=== PATIENT | male | born 1945 | race Caucasian/White ===

== ENCOUNTER 2021-05-07 11:01 | Inpatient (IN) ==
[2021-05-07] MEDS ORDERED: ALBUT/IPRATROP 3MG/0.5MG NEB 3 ML VIAL NEB ONE (12:45)
[2021-05-07] MEDS ORDERED: MAGNESIUM SULFATE / D5W 1 GM/100 ML BAG IV STA ×2 (12:45→14:11)
[2021-05-07 13:14] LABS: Basophils # (auto) 0.01 K/uL (0-0.2); Basophils % (auto) 0.1 %; Eosinophils # (auto) 0.03 K/uL (0-0.5); Eosinophils % (auto) 0.3 %; Hematocrit (blood only) 43.4 % (42-52); Hemoglobin 14.3 g/dL (14.0-18.0); Immature Granulocytes # (auto) 0.01 K/uL (0.00-0.02); Immature Granulocytes % (auto) 0.1 %; Lymphocytes # (auto) 1.13 K/uL (1.2-3.4); Lymphocytes % (auto) 11.8 %; Mean Corpuscular Hemoglobin 30.6 pg (25-34); Mean Corpuscular Hgb Conc 32.9 g/dL (32-36); Mean Corpuscular Volume 92.7 fL (80-100); Mean Platelet Volume 11.3 fL (7.4-10.4); Monocytes % (auto) 7.3 %; Neutrophils # (auto) 7.69 K/uL (1.4-6.5); Neutrophils % (auto) 80.4 %; Platelet Count 248 K/uL (130-400); RDW Coefficient of Variation 13.7 % (11.5-14.5); RDW Standard Deviation 46.4 fL (36.4-46.3); Red Blood Count 4.68 M/uL (4.7-6.1); White Blood Count 9.57 K/uL (4.8-10.8)
--- NOTE | 2021-05-07 13:25 | Communication Note ---
Date of Service: May 07, 2021 This patient was seen in concert with Dr. Coffman and we discussed and agreed upon the history, physical, assessment, and plan. See attending's note for details. Resident Activity Tracking Resident Involvement: Resident Care Provided Care Provided: Adult ED
[2021-05-07 13:28] LABS: INR 1.1 (0.9-1.1); Partial Thromboplastin Ratio 1.7; Partial Thromboplastin Time 43.6 Seconds (21.0-31.0)
[2021-05-07] MEDS ORDERED: methylPREDNISolone 125 MG/2 ML VIAL IV STA (13:38)
[2021-05-07 13:45] LABS: Albumin Globulin Ratio 0.6 (0.9-2); BUN Creatinine Ratio 17.3 (10-20); Bilirubin,Total 0.4 mg/dl (0.2-1); Calcium 8.2 mg/dl (8.5-10.1); Creatine Kinase MB 5.2 ng/ml (0.5-3.6); Creatinine Clr Calc Pharmacy 60.8 ml/min; Est GFR (Non-African American) 60.4 ml/min; Globulin 3.5 gm/dl (2.5-4.0); Total Protein 5.5 gm/dl (6.4-8.2)
[2021-05-07] MEDS ORDERED: INSULIN ASPART PER UNIT SC STA (13:56)
[2021-05-07 13:58] LABS: Troponin I 0.119 ng/ml (0-0.045)
[2021-05-07 14:03] LABS: Magnesium 1.7 mg/dl (1.8-2.4); Potassium 4.4 mmol/L (3.5-5.1)
--- NOTE | 2021-05-07 14:04 | XRay Report ---
SINGLE VIEW CHEST CLINICAL HISTORY: Sepsis. FINDINGS: 2 AP, portable, upright chest radiographs are obtained. No prior studies are available for comparison at the time of dictation. The examination is degraded by portable technique and patient ro tation. A right subclavian central venous infusion port is in place. The tip of the catheter projects over the right atrium. The heart is enlarged noting atherosclerotic calcification of the thoracic ao rta. There is mild pulmonary vascular congestion. Volume loss is noted in the right lung and may be o n a postoperative basis. There are bilateral pleural effusions, right larger than left with consolida tion throughout the lower lungs. No pneumothorax is seen. The skeletal structures are osteopenic. The re are healed right-sided rib fractures. IMPRESSION: 1. Cardiomegaly with mild pulmonary vascular congestion. 2. Right larger than left pleural effusions with bibasilar consolidation. ACT 112: Negative or not required by law. Electronically signed by: Carlos Nuñez M.D. 05/07/2021 2:03 PM
[2021-05-07] MEDS ORDERED: OPTIRAY 320 125ml IV ONE (14:07)
[2021-05-07 14:08] LABS: Base Excess VBG 1.2 mEq/L; HCO3 VBG 30 mmol/L; PCO2 VBG 65 mmHg (38-50); PO2 VBG 31 mmHg; pH VBG 7.28 (7.36-7.41)
[2021-05-07] MEDS ORDERED: FUROSEMIDE 40 MG/4 ML VIAL IV STA (14:08)
[2021-05-07 14:11] LABS: Oxygen Saturation VBG < 60.0 %
[2021-05-07 14:14] LABS: Beta-Hydroxybutyrate 2.56 mg/dl (0.2-2.81)
[2021-05-07 14:26] LABS: C Reactive Protein 1.05 mg/dl (0-0.29)
--- NOTE | 2021-05-07 14:53 | CT Scan Report ---
CT ANGIOGRAM OF THE CHEST CLINICAL HISTORY: Dyspnea. COMPARISON STUDY: Chest x-ray dated 05/07/2021. TECHNIQUE: Following the IV administration of 120 cc of Optiray 320, CT angiogram of the chest was pe rformed from the upper abdomen to the thoracic inlet utilizing the pulmonary embolus protocol. Images are reviewed in the axial, sagittal, and coronal planes. 3-D MIPS images are created and assessed. I V contrast was administered without complication. A dose lowering technique was utilized adhering to the principles of ALARA. The examination is compromised by motion artifact. CT DOSE: 534.92 mGy.cm FINDINGS: Thyroid: Normal in size and heterogeneous in attenuation. Thoracic aorta: There is advanced atherosclerotic calcification of the thoracic aorta, which is dawson l in caliber and demonstrates standard 3-vessel arch anatomy. No evidence of dissection is seen. Pulmonary vasculature: The pulmonary arteries appear dilated suggesting pulmonary artery hypertension . There is thrombus within the right lower lobe pulmonary artery which extends into segmental and sub segmental branches. The remaining pulmonary vessels are clear as imaged. Heart: A right internal jugular central venous infusion port is in place. The heart is markedly enlar ged and without pericardial effusion. The coronary arteries and mitral annulus are densely calcified. Reflux of contrast into the IVC and hepatic veins suggests cardiac dysfunction. Lungs and pleural spaces: Evaluation of the lung parenchyma is compromised by motion artifact. Emphys ematous change is noted. Volume loss in the right lung may be on a postoperative basis. There are sma ll pleural effusions with bibasilar consolidation. Pleural fluid along the right lateral chest wall i s at least partially loculated. A large focus of round atelectasis is suggested at the right lung bas e. Patchy airspace consolidation is seen throughout the left lung with associated intralobular septal thickening. A 6 mm left upper lobe nodule is seen on image #156. A 12 mm irregular left upper lobe o pacity seen anteriorly on image #177. Layering debris is noted in the trachea. Mediastinum: Mildly enlarged mediastinal nodes measure up to 12 mm in short axis. Kathie: Enlarged bilateral hilar nodes measure up to 15 mm in short axis. Axillae: There are shotty axillary nodes. Upper abdomen: Partially visualized upper abdominal viscera is within normal limits. Skeletal structures: The skeletal structures are heterogeneously osteopenic. Degenerative change and hyperkyphosis is seen throughout the thoracic spine. 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 A lytic lesion is seen in the posterior aspect of the T10 vertebral body on image #95. A lesion within the inferior right scapula is seen on image #142. A large expansile lesion within th e left anterior 4th rib is seen on image #191. There are numerous healed bilateral rib fractures. Add itional smaller lesions are noted. IMPRESSION: 1. Right lower lobe pulmonary embolus as above. 2. Cardiomegaly and emphysema with volume loss in the right lung. Intralobular septal thickening may represent a component of congestive failure and clinical correlation will be required. 3. 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 Correlate with the patient's oncolo gical history. 4. There are small pleural effusions. The right pleural effusion is partially loculated. 5. There is dense consolidation at both lung bases, left greater than right. Correlate clinically for evidence of pneumonia/aspiration pneumonitis. 6. Mild patchy opacities are seen throughout the left upper lung. This could represent an infectious/ inflammatory pneumonitis and/or mild pulmonary edema. 7. There are 2 additional nodular densities in the left lung as above which measure up to 12 mm. Thes e are pathologically indeterminant. Correlate with any prior outside imaging studies. 8. There are mildly enlarged mediastinal and hilar lymph nodes. 9. Additional findings as above. ACT 112: Negative or not required by law. Electronically signed by: Carlos Nuñez M.D. 05/07/2021 2:52 PM
[2021-05-07] MEDS ORDERED: Heparin IV Adult Wt-Based Standard *NO* Bolus Protocol ONE (15:01)
[2021-05-07] MEDS ORDERED: PIPERACILLIN/TAZOBACTAM 4.5 GM/120 ML BAG IV ONE (15:09)
[2021-05-07] MEDS ORDERED: PIPERACILL/TAZOBAC CONSULT ACTIVE PRN (15:09)
--- NOTE | 2021-05-07 15:19 | History & Physical Report ---
Date of Service May 07, 2021 Assessment & Plan (1) Acute respiratory failure with hypoxia and hypercapnia: Plan: This is a 76yo M with a PMH of HTN, DM II, COPD, PAD, ongoing tobacco use x 60 years, peripheral neuropathy, Multiple Myeloma on immunotherapy, medication non- compliance who presents with progressive SOB over the past few months. Hypoxic at 86% on room air, improved to 93% with bipap trial, now 92% on 6L oxymask VBG pH 7.28, pCo2 65 Admission ABG pending, plan to repeat VBG in AM per pulm Underlying COPD - should be on BiPAP nightly Possible underlying pneumonia vs pneumonitis - afebrile, normal wbc and procal but aspiration risk - placed on Unasyn Appreciate pulm recs (2) Pulmonary embolism: Plan: Right lower lobe PE on Chest CTA Started on IV heparin Long-term anticoagulation to be determined by patient's data typist Troponin slightly elevated at 0.119, TTE to evaluate for R heart strain (3) Volume overload: Plan: No formal CHF diagnosis in [facility], [facility] records requested but clinically appears to have decompensated CHF Prescribed 80mg PO Lasix daily for BLE swelling, per [facility] records TTE performed while patient in ED Pro-BNP 24,198, edema noted in BLE extremities up to groin, upper extremity as well Given 40mg IV Lasix in ED. Plan to continue 40mg IV BID, garrison placement for accurate I&Os, daily weights Routine cardiology consult (4) Multiple myeloma: Plan: Receives cancer care at [facility] in [place] for IgG kappa multiple myeloma. Regimen includes monthly daratumumab (5) PAD (peripheral artery disease): Plan: Supposed to be on aspirin and plavix Will continue aspirin Awaiting OP records to see if plavix still indicated (6) HTN (hypertension): Plan: Resume amlodipine, losartan which patient is prescribed but does not currently take (7) DM type 2, uncontrolled, with neuropathy: Plan: A1c pending Not compliant with home meds SSI while in-patient Glycemic consult placed, diabetic education as well BSG AC HS DVT Ppx: IV heparin Code status: FULL PCP: [facility] Dispo: Admitted to PCU. Discharge planning ordered Please review med rec [facility] - based on [facility] list from hematology visits Patient seen in collaboration with Dr. Trimble. Please see addendum. History of Present Illness Chief Complaint: SOB Primary Care Provider: NO PCP This is a 76yo M with a PMH of HTN, DM II, COPD, PAD, ongoing tobacco use x 60 years, peripheral neuropathy, Multiple Myeloma on immunotherapy who presents with progressive SOB over the past few months. [facility] today and was noted to have SOB and lower extremity swelling and was sent to ED for further evaluation. Unable to obtain [facility] records today but requested them. Endorses productive yellow sputum, chills, swelling in arms, legs and scrotum. Sleeps lying flat at night but is short of breath, waking up frequently. No fevers, headache, nausea, vomiting, abdominal pain, dysuria, constipation. Endorses urinary hesitancy, incomplete voiding and retention. Stool is watery and loose chronically. Receives cancer care at [facility] in [place] for IgG kappa multiple myeloma. Regimen includes monthly daratumumab. Is non-compliant with home medications, including antihypertensives, lasix, diabetes medications, aspirin and plavix. Uses albuterol inhaler occasionally. [facility] med [facility] Allergies Allergy/AdvReac Type Severity Reaction Status Date / Time gabapentin Allergy Rash Unverified 05/07/21 11:50 metformin Allergy Diarrhea Unverified 05/07/21 11:50 Home Medications Medication Instructions Recorded Confirmed Type albuterol sulfate 90 mcg/actuation 2 inh INHALATION QID PRN 05/07/21 05/07/21 History aerosol inhaler amlodipine 10 mg tablet 10 mg PO DAILY 05/07/21 05/07/21 History aspirin 81 mg capsule 81 mg PO DAILY 05/07/21 05/07/21 History atorvastatin 80 mg tablet 80 mg PO DAILY 05/07/21 05/07/21 History capsaicin 0.075 % topical cream 1 applic TOPICAL TID PRN 05/07/21 05/07/21 History clopidogrel 75 mg tablet (Plavix) 75 mg PO DAILY 05/07/21 05/07/21 History cyanocobalamin (vitamin B-12) 1,000 mcg PO DAILY 05/07/21 05/07/21 History 1,000 mcg tablet furosemide 80 mg tablet (Lasix) 80 mg PO DAILY 05/07/21 05/07/21 History hydrochlorothiazide 25 mg tablet 25 mg PO DAILY 05/07/21 05/07/21 History insulin aspart U-100 100 unit/mL 30 unit SUBCUT BID 05/07/21 05/07/21 History subcutaneous cartridge losartan 100 mg tablet 100 mg PO DAILY 05/07/21 05/07/21 History montelukast 10 mg tablet 10 mg PO DAILY 05/07/21 05/07/21 History omega-3 fatty acids 500 mg PO DAILY 05/07/21 05/07/21 History potassium chloride 20 mEq 20 meq PO DAILY 05/07/21 05/07/21 History tablet,extended release tamsulosin 0.4 mg capsule 0.4 mg PO HS 05/07/21 05/07/21 History tiotropium bromide 2.5 2 puff INHALATION DAILY 05/07/21 05/07/21 History mcg/actuation mist for inhalation Past Med/Surg History Medical History (Updated 05/07/21 @ 17:52 by Mary Ann Sampson PA-C) DM type 2, uncontrolled, with neuropathy HTN (hypertension) PAD (peripheral artery disease) Surgical History (Updated 05/07/21 @ 17:51 by Mary Ann Sampson PA-C) History of lung surgery ROBOTIC THORACOSCOPY SURGICAL PARTIAL PULMONARY DECORTICATION, [facility] [place] 2013 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 Family History Other Colorectal cancer Heart disease Social History Smoking Status: Current every day smoker Tobacco Type: Cigars packs per day: 1; Years Smoked: 60; Second Hand Exposure: Yes; Hx Alcohol Use: No Hx Substance Use: Yes Non-Prescribed Medications: Marijuana Last Used Substance: Unknown Preferred Language: Persian Communication Ability: Effective Beliefs That Will Affect Care: None Current Living Situation: Alone Feels Safe at Home: Yes Assistive Devices: BiPap, Cane, Denture - Upper, Denture - Lower and Glasses Review of Systems Review of Systems: At least ten systems reviewed and negative except as noted in the HPI. Physical Exam Physical Exam: Please see Dr. Trimble's addendum for physical exam. Results & Data Results & Data ([facility]) Vital Signs (Past 12 Hours) Vital Signs Temp Pulse Pulse Resp BP BP Pulse Ox 05/07/21 14:22 106 H 30 H 93 05/07/21 14:17 108 H 22 91 05/07/21 14:15 108 H 22 178/97 H 91 05/07/21 14:00 16 97 05/07/21 13:57 24 93 05/07/21 13:17 105 H 22 91 05/07/21 13:14 107 H 22 187/114 H 86 L 05/07/21 13:12 105 H 24 91 05/07/21 11:19 97 H 24 167/93 H 100 05/07/21 11:14 94 05/07/21 11:07 37.2 C 96 H 18 167/93 H 100 Laboratory Results Short CBC 05/07/21 Range/Units 13:03 WBC 9.57 (4.8-10.8) K/uL Hgb 14.3 (14.0-18.0) g/dL Hct 43.4 (42-52) % Plt Count 248 (130-400) K/uL BMP 05/07/21 13:03 Sodium 140 Potassium 4.4 Chloride 106 Carbon Dioxide 29 BUN 20 H Creatinine 1.18 Glucose 378 H* Calcium 8.2 L Cardiac Enzymes 05/07/21 Range/Units 13:03 Total Creatine Kinase 146 (39-308) U/L CK-MB (CK-2) 5.2 H (0.5-3.6) ng/ml Troponin I 0.119 H* (0-0.045) ng/ml Liver Function 05/07/21 Range/Units 13:03 Total Bilirubin 0.4 (0.2-1) mg/dl AST 17 (15-37) U/L ALT 36 (12-78) U/L Alkaline Phosphatase 131 H (45-117) U/L Albumin 2.0 L (3.4-5.0) gm/dl Diagnostic Findings Chest X-Ray 05/07/21 12:44 SINGLE VIEW CHEST CLINICAL HISTORY: Sepsis. FINDINGS: 2 AP, portable, upright chest radiographs are obtained. No prior studies are available for comparison at the time of dictation. The examination is degraded by portable technique and patient rotation. A right subclavian central venous infusion port is in place. The tip of the catheter projects over the right atrium. The heart is enlarged noting atherosclerotic calcification of the thoracic aorta. There is mild pulmonary vascular congestion. Volume loss is noted in the right lung and may be on a postoperative basis. There are bilateral pleural effusions, right larger than left with consolidation throughout the lower lungs. No pneumothorax is seen. The skeletal structures are osteopenic. There are healed right-sided rib fractures. IMPRESSION: 1. Cardiomegaly with mild pulmonary vascular congestion. 2. Right larger than left pleural effusions with bibasilar consolidation. ACT 112: Negative or not required by law. Electronically signed by: Carlos Nuñez M.D. 05/07/2021 2:03 PM Chest CTA 05/07/21 13:01 CT ANGIOGRAM OF THE CHEST CLINICAL HISTORY: Dyspnea. COMPARISON STUDY: Chest x-ray dated 05/07/2021. TECHNIQUE: Following the IV administration of 120 cc of Optiray 320, CT angiogram of the chest was performed from the upper abdomen to the thoracic inlet utilizing the pulmonary embolus protocol. Images are reviewed in the axial, sagittal, and coronal planes. 3-D MIPS images are created and assessed. IV contrast was administered without complication. A dose lowering technique was utilized adhering to the principles of ALARA. The examination is compromised by motion artifact. CT DOSE: 534.92 mGy.cm FINDINGS: Thyroid: Normal in size and heterogeneous in attenuation. Thoracic aorta: There is advanced atherosclerotic calcification of the thoracic aorta, which is normal in caliber and demonstrates standard 3-vessel arch anatomy. No evidence of dissection is seen. Pulmonary vasculature: The pulmonary arteries appear dilated suggesting pulmonary artery hypertension. There is thrombus within the right lower lobe pulmonary artery which extends into segmental and subsegmental branches. The remaining pulmonary vessels are clear as imaged. Heart: A right internal jugular central venous infusion port is in place. The heart is markedly enlarged and without pericardial effusion. The coronary arteries and mitral annulus are densely calcified. Reflux of contrast into the IVC and hepatic veins suggests cardiac dysfunction. Lungs and pleural spaces: Evaluation of the lung parenchyma is compromised by motion artifact. Emphysematous change is noted. Volume loss in the right lung may be on a postoperative basis. There are small pleural effusions with bibasilar consolidation. Pleural fluid along the right lateral chest wall is at least partially loculated. A large focus of round atelectasis is suggested at the right lung base. Patchy airspace consolidation is seen throughout the left lung with associated intralobular septal thickening. A 6 mm left upper lobe nodule is seen on image #156. A 12 mm irregular left upper lobe opacity seen anteriorly on image #177. Layering debris is noted in the trachea. Mediastinum: Mildly enlarged mediastinal nodes measure up to 12 mm in short axis. Kathie: Enlarged bilateral hilar nodes measure up to 15 mm in short axis. Axillae: There are shotty axillary nodes. Upper abdomen: Partially visualized upper abdominal viscera is within normal limits. Skeletal structures: The skeletal structures are heterogeneously osteopenic. Degenerative change and hyperkyphosis is seen throughout the thoracic spine. 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 A lytic lesion is seen in the posterior aspect of the T10 vertebral body on image #95. A lesion within the inferior right scapula is seen on image #142. A large expansile lesion within the left anterior 4th rib is seen on image #191. There are numerous healed bilateral rib fractures. Additional smaller lesions are noted. IMPRESSION: 1. Right lower lobe pulmonary embolus as above. 2. Cardiomegaly and emphysema with volume loss in the right lung. Intralobular septal thickening may represent a component of congestive failure and clinical correlation will be required. 3. 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 Correlate with the patient's oncological history. 4. There are small pleural effusions. The right pleural effusion is partially loculated. 5. There is dense consolidation at both lung bases, left greater than right. Correlate clinically for evidence of pneumonia/aspiration pneumonitis. 6. Mild patchy opacities are seen throughout the left upper lung. This could represent an infectious/inflammatory pneumonitis and/or mild pulmonary edema. 7. There are 2 additional nodular densities in the left lung as above which measure up to 12 mm. These are pathologically indeterminant. Correlate with any prior outside imaging studies. 8. There are mildly enlarged mediastinal and hilar lymph nodes. 9. Additional findings as above. ACT 112: Negative or not required by law. Electronically signed by: Carlos Nuñez M.D. 05/07/2021 2:52 PM Code Status & VTE Plan VTE Prophylaxis Plan VTE Prophylaxis will be ordered: Yes Supervising Physician Co-Signing Physician Notes History and physical exam performed by me as detailed by Mary Ann Sampson PA-C. History notable for 76yo M with a PMH of HTN, DM II, COPD, PAD, ongoing tobacco use x 60 years, peripheral neuropathy, Multiple Myeloma on immunotherapy who presents with worsening shortness of breath, leg swelling, chronic cough over the past 3 months; poor med adherence. Active smoker 1ppd x 60yrs, occasional marijuana use H/o MM Family h/o colon cancer in father Surgery - Thoracic surgery some years ago Physical exam notable for elderly man, on BiPAP, bilateral lower extremities and upper extremity edema, diminished breath sounds lung bases with crackles Lab work notable for blood glucose of 378, magnesium of 1.7, alkaline phosphatase of 131, troponin of 0.119, [place] [address] [place] PE reports right lower lobe PE, cardiomegaly and emphysema with volume loss in the right lung, evidence of multifocal osteolytic metastatic disease, dense consolidation of both lung bases left greater than right with opacities in the left upper lung -Acute hypoxic respiratory failure -Right lung PE -Possible pneumonia -Congestive heart failure Get ABG Continue antibiotics Continue heparin drip Pulm consult F/u 2D echo performed. Previous Echo from 06/2020 (Epic) showed EF 60-64% Patient does not know his meds and has not been taking any Get records from [facility] IV Cards consult T[facility] trop Tele monitoring Pharm on board for glycemic control DM educator consult Get A1c Agree with other plans as detailed by Mary Ann Sampson PA-C (1) Pulmonary embolism Acute cor pulmonale presence: unspecified Chronicity: unspecified Pulmonary embolism type: unspecified Qualified Code(s): I26.99 - Other pulmonary embolism without acute cor pulmonale (2) Multiple myeloma Multiple myeloma remission status: unspecified Qualified Code(s): C90.00 - Multiple myeloma not having achieved remission
[2021-05-07] MEDS: HEPARIN SODIUM/DEXTROSE 25,000 UNITS/500 ML BAG IV SCH (15:33)
--- NOTE | 2021-05-07 15:34 | Electrocardiogram Report ---
Test Reason : Blood Pressure : / mmHG Vent. Rate : 107 BPM Atrial Rate : 107 BPM P-R Int : 120 ms QRS Dur : 144 ms QT Int : 404 ms P-R-T Axes : 058 253 060 degrees QTc Int : 539 ms Sinus tachycardia with Premature atrial complexes Possible Left atrial enlargement Right bundle branch block Cannot rule out Anteroseptal infarct , age undetermined Abnormal ECG No previous ECGs available Confirmed by Navi Conrad ([id number]) on 05/07/2021 3:33:53 PM Referred By: REFERRED SELF Confirmed By:Dieter Conrad
--- NOTE | 2021-05-07 15:52 | Critical Care Consultation ---
Date of Consultation May 07, 2021 Assessment & Plan (1) Abnormal CT scan of lung: (2) Pulmonary embolism: (3) Dyspnea: (4) CHF (congestive heart failure): Impression: 76-year-old male with complicated medical history including metastatic multiple myeloma, COPD, and peripheral vascular disease presents with shortness of breath. He is found to be fluid overloaded with profound lower e xtremity edema and a markedly elevated BNP level. Blood gas demonstrated acute hypercarbic respiratory failure and he is been placed on BiPAP. CT angiogram also showed evidence of small segmental/subsegmental filling defect consistent with acute PE. Has been initiated on heparin. He has a grossly abnormal CT scan of unclear chronicity. Recommendations: 1. Acute PE: While this may be contributing, I think the small volume of clot and questionable chronicity (appears incorporated into the vessel wall) may make this less of an acute issue. Agree with anticoagulation with heparin for now an d can likely transition to DOAC or Coumadin over the next 24 hours depending on clinical response. 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 Would not recommend thrombophilia work-up. 2. Heart failure: Markedly elevated BNP and significant lower extremity edema. Transthoracic echocardiogram is pending. Would trend troponin. Patient cannot recall having seen a wool washer before. Depending on the echo findings, cardiology consultation may be beneficial. Recommend aggressive diuresis and blood pressure control as there may be a component of diastolic dysfunction. Target blood pressure should be less than 130/80. Defer medications to primary service. 3. Abnormal CT scan: Patient's database is incomplete. Unclear what prior im aging has had performed. Getting records from the [place] and [facility] should be undertaken. 4. COPD: The patient does not appear overtly bronchospastic currently. No indication for steroids. Outpatient PFTs may be reasonable. Placed on a trial of Anoro and as needed duo nebs. 5. Questionable pneumonia: Difficult to interpret the patient CT scan. He does have a fluid-filled patulous esophagus and is at risk for aspiration. Do not think he needs antipseudomonal coverage so we will discontinue Zosyn and place him on a trial of Unasyn. He has not been febrile and has a normal white count with a normal procalcitonin. Can likely discontinue abx within the next 24-48 hours. 6. Hypercarbic respiratory failure: Suspect related to COPD. He is on BiPAP currently. We will repeat venous blood gas in the morning. He should be on BiPAP nightly. He should have his sleep study updated in the outpatient setting. His serum bicarb was mildly elevated which does argue for some chronicity. 7. Recommend obtaining [facility] as well as from his medical oncologist at [facility] to guide additional recommendations and therapy Patient is at risk for clinical deterioration. Total of 47 minutes in critical care time was spent in evaluation management stabilization of this patient History of Present Illness History of Present Illness Is there are minimal notes in the electronic medical record at this time. Patient is a 76-year-old male who gets his care through the [facility] system. He has an over [id number] history of tobacco abuse and reportedly has been diagnosed with COPD but PFTs are not available. He apparently had a prior sleep study demonstrating a need for CPAP but he declined therapy as he states it was too uncomfortable. He is not been on oxygen. He does not use inhalers on a regular basis. He has had progressive lower extremity edema over the last several weeks and presented to the emergency room with shortness of breath. He was found to have an abnormal chest x-ray and an elevated D-dimer. He does have a history of multiple myeloma and is currently receiving chemotherapy through the [facility] system. I do not have any records from them to review. His CT angiogram demonstrated a subsegmental PE in the right lower lobe. Has been initiated on heparin. He is hypertensive and tachycardic. During the course of his ER evaluation his oxygen requirement increased and eventually he was transitioned to BiPAP. He states he is breathing much better currently. Patient's database is currently incomplete and there are no prior records in the EMR to review. Allergies Allergy/AdvReac Type Severity Reaction Status Date / Time gabapentin Allergy Rash Unverified 05/07/21 11:50 metformin Allergy Diarrhea Unverified 05/07/21 11:50 Home Medications Medication Instructions Recorded Confirmed Type No Known Home Medications 05/07/21 05/07/21 History Patient History Medical History (Updated 05/07/21 @ 15:58 by Luis Angel Glez MD) PAD (peripheral artery disease) Social History Smoking Status: Current every day smoker Tobacco Type: Cigars Feels Safe at Home: Yes Review of Systems Review of Systems: Please refer to the admission H&P Physical Exam Constitutional: + obese; no acute distress Neck: trachea midline, no thyromegaly Respiratory: no respiratory distress Auscultation: + rales and + wheezes Cardiovascular: Rate/Rhythm: regular rate and + tachycardic Heart Sounds: normal S1 and normal S2; no murmur Extremities: + edema Gastrointestinal (Abdomen): normal bowel sounds, soft, nontender, no hepatosplenomegaly Musculoskeletal: Extremities: extremities normal to inspection Skin: no rashes, warm and dry Neurologic: Nonfocal exam Lymphatic: no cervical lymphadenopathy Results & Data Results & Data ([facility]) Vital Signs (Past 12 Hours) Vital Signs Temp Pulse Pulse Resp BP BP Pulse Ox 05/07/21 15:00 94 05/07/21 14:22 106 H 30 H 93 05/07/21 14:17 108 H 22 91 05/07/21 14:15 108 H 22 178/97 H 91 05/07/21 14:00 16 97 05/07/21 13:57 24 93 05/07/21 13:17 105 H 22 91 05/07/21 13:14 107 H 22 187/114 H 86 L 05/07/21 13:12 105 H 24 91 05/07/21 11:19 97 H 24 167/93 H 100 05/07/21 11:14 94 05/07/21 11:07 37.2 C 96 H 18 167/93 H 100 Laboratory Results 05/07/21 13:03 05/07/21 13:03 Venous blood gas showed a pH 7.28 with a CO2 of 65 Troponin 0 0.119 BNP over 24,000 Procalcitonin undetectable Diagnostic Findings CT angiogram was independently reviewed from today. There is a small subsegmental filling defect in the right lower lobe consistent with acute PE. Cardiomegaly and emphysematous changes identified with multifocal metastatic myeloma. Bilateral pleural effusions and opacities are identified. There does appear to be some chronicity to the subpleural fibrosis with some mildly enlarged mediastinal adenopathy. No comparison studies Coding Level of Care Code Critical Care 1st 30-[address] scan of lung R91.8 Pulmonary embolism I26.99 Dyspnea R06.00 CHF (congestive heart failure) I50.9 Time Spent (min) 55 Comment Critical care time spent managing acute PE and hypoxemic and hypercarbic respiratory failu
--- NOTE | 2021-05-07 16:11 | Emergency Department Note ---
Impression & Plan Pulmonary embolism, CHF (congestive heart failure), Multiple myeloma ED Provider Note NAME: GRACE ABDI AGE: 76 SEX: M : 1945 ARRIVES VIA: Ambulance INFORMANT: Patient, EMS, outside records ED PROVIDER(S): Jose Coffman MD CHIEF COMPLAINT: shortness of breath HPI: Outside records review from [facility] reveals this patient has multiple myeloma. The patient was sent from his primary care physician's office today because he is hypoxic. The patient reports any shortness of breath when he moves. He reports rest makes the shortness of breath better. He has not taken anything for the shortness of breath. Grace is a 76-year-old gentleman with a notable history of multiple myeloma with associated lytic lesions see below (on daratumumab and dexamethasone weekly), COPD, tobacco abuse, insulin-dependent diabetes who presented to [facility] with a chief complaint of shortness of breath. Patient is unable to provide thorough history given significant conversational dyspnea. He says that he has COPD and does not on any treatment for this. He said he continues to smoke regularly. He says that his breathing at baseline is quite poor. He says that over the "recent time" his shortness of breath has become significantly more profound. He denies any fevers, chills, night sweats. Says his baseline appetite is poor. He denies any chest pain or recent chest symptoms. He is c urrently receiving monoclonal antibody treatment for his multiple myeloma, last administered on 04/30. He gets this, as well as 10 mg dexamethasone, weekly on review of records. He follows with [facility] for his chemotherapy treatment. [facility] [place] [facility]. On review of his records, he is noted to have a right-sided lung nodule, lytic lesions within the right humerus, left humerus, left eighth rib, L4 spinous process, left iliac wing. This 76-year-old Medications include Singulair, Tylenol, insulin, Lasix 80 mg daily (for leg swelling; he denies any history of heart problems), hydrochlorothiazide, losartan, potassium, Flomax, amoxicillin, Xanax, Plavix, Lipitor 80 mg, Spiriva Respimat, albuterol as needed. ROS: See above HPI for pertinent positives & negatives. A total of 10 systems reviewed and were otherwise negative. PAST MEDICAL HISTORY: See Below PAST SURGICAL HISTORY: See Below FAMILY HISTORY: See Below SOCIAL HISTORY: See Below HOME MEDICATIONS: See Below ALLERGIES: See Below VITALS: See Below PHYSICAL EXAMINATION: VITAL SIGNS - Vital signs and nursing notes were reviewed. GENERAL - 76-year-old male appearing stated age who is in no acute distress. Communicates well with provider and answers questions appropriately. SKIN - Without rashes. HEAD - NC/AT. EYES - PERRL with EOMI bilaterally. Sclera anicteric. Palpebral conjunctiva pink and moist with no injection noted. EARS - No deformities of external structures noted on gross examination bilaterally. NOSE - Midline and without cyanosis. No epistaxis or purulent drainage noted. Septum midline without deviation or septal hematoma noted. MOUTH/OROPHARYNX - Without perioral cyanosis. Buccal mucosa pink and moist and without leukoplakia. Tongue midline with equal elevation of palate bilaterally. No tonsillar hypertrophy, erythema, or exudates noted. NECK - Neck with FROM. Supple to palpation. No nuchal rigidity. LUNGS - Chest wall symmetric without accessory muscle use, intercostals retractions, or central cyanosis. Normal vesicular breath sounds CTA B/L. No wheezes, rales, or rhonchi appreciated. CARDIAC - RRR with S1/S2. No murmur, rubs, or gallops appreciated. ABDOMEN - Abdominal contour without pulsations or visible masses. BS normoactive all four quadrants. No tenderness, palpable masses, hepatosplenomega ly, or ascites noted. EXTREMITIES - No clubbing or peripheral cyanosis. No pretibial edema present. +3/5 radial, posterior tibial, and dorsalis pedis pulses palpated throughout. +5/5 strength noted in UE/LE bilaterally. NEUROLOGIC - Cranial nerves II through XII grossly intact. Sensory intact to l ight touch throughout. Patellar reflexes +2/4. PSYCH - A&Ox3 and cooperates fully with examiner. Pt is very pleasant and interacts well with examiner. MEDICAL DECISION MAKING: Patient was seen and evaluated as above in room B4. Review was performed of nursing notes and vital signs. I did review pertinent previous visits and patient history. After obtaining a thorough history and physical examination the above work up was performed. This 76-year-old male who presents to the emergency department complaining of shortness of breath. Upon arrival to the emergency department the patient is b elligerent and upset with the wait time and is threatening to leave. He is demanding food and coffee which he was immediately given. He was then placed on BiPAP. Port was accessed laboratory work was obtained. The patient appears to have congestive heart failure on chest x-ray. He was started on Lasix. He was also given Solu-Medrol. Due to the hypoxia and the tachycardia the patient was sent for CAT scan of the chest this is concerning for a PE. The patient was then placed on a heparin drip. I will note he has an elevation in his troponin as well as his BNP. His Covid test is negative he was also given 10 units of insulin for his glucose. I did discuss the case with the hospitalist service who did agree to admit the patient. An order was placed for continuous cardiac monitoring. The monitor shows a rate of 102 with Sinus tach rhythm. The patient was evaluated during a period of high volume and high acuity during the global COVID-19 pandemic, and that diagnosis was suspected/considered upon their initial presentation. Their evaluation, treatment and testing was consistent with current guidelines for patients who present with complaints or symptoms that may be related to COVID-19. Patient was seen while provider was wearing PPE. Triage Nursing notes reviewed. Prior medical records reviewed Vital Signs: reviewed and remarkable for no significant abnormalities Differential diagnosis: Reactive airway disease, pneumonia, pneumothorax, COPD, CHF, infections, cardiac ischemia, pulmonary embolism, musculoskeletal, gastrointestinal, as well as other pathologies. ER treatment provided: See below Diagnostics interpreted by me: ECG: Sinus tach with premature atrial complex right bundle branch block no ST elevation or depression QTC is 539 ventricular rate is 107 there is no previous EKG to compare to Laboratory studies: As stated above and show below. Imaging studies: See below Consultation(s): Internal Medicine PDMP:reviewed and no issues Critical Care: I have personally spent greater than 30 minutes of critical care time in the di rect management of this patient. This includes bedside care, interpretation of diagnostic studies, and testing, discussion with consultants, patient, and family members, and other required patient management activities. This 30 minutes is in excess of all separately billable procedures. 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 Family History Other Colorectal cancer Heart disease Social History Smoking Status: Heavy tobacco smoker Tobacco Type: Cigars packs per day: 1; Years Smoked: 60; Second Hand Exposure: Yes; Hx Alcohol Use: No Hx Substance Use: Yes Non-Prescribed Medications: Marijuana Last Used Substance: Unknown Preferred Language: Greenlandic Communication Ability: Effective Beliefs That Will Affect Care: None marital status: Single Current Living Situation: Alone Feels Safe at Home: Yes Assistive Devices: Cane Allergies Allergies Allergy/AdvReac Type Severity Reaction Status Date / Time gabapentin Allergy Rash Unverified 05/07/21 11:50 metformin Allergy Diarrhea Unverified 05/07/21 11:50 Home Meds Home Medications Medication Instructions Recorded Confirmed albuterol sulfate 90 mcg/actuation 2 inh INHALATION QID PRN 05/07/21 05/07/21 aerosol inhaler amlodipine 10 mg tablet 10 mg PO DAILY 05/07/21 05/07/21 aspirin 81 mg capsule 81 mg PO DAILY 05/07/21 05/07/21 atorvastatin 80 mg tablet 80 mg PO DAILY 05/07/21 05/07/21 capsaicin 0.075 % topical cream 1 applic TOPICAL TID PRN 05/07/21 05/07/21 clopidogrel 75 mg tablet (Plavix) 75 mg PO DAILY 05/07/21 05/07/21 cyanocobalamin (vitamin B-12) 1,000 mcg PO DAILY 05/07/21 05/07/21 1,000 mcg tablet furosemide 80 mg tablet (Lasix) 80 mg PO DAILY 05/07/21 05/07/21 hydrochlorothiazide 25 mg tablet 25 mg PO DAILY 05/07/21 05/07/21 losartan 100 mg tablet 100 mg PO DAILY 05/07/21 05/07/21 montelukast 10 mg tablet 10 mg PO DAILY 05/07/21 05/07/21 omega-3 fatty acids 500 mg PO DAILY 05/07/21 05/07/21 potassium chloride 20 mEq 20 meq PO DAILY 05/07/21 05/07/21 tablet,extended release tamsulosin 0.4 mg capsule 0.4 mg PO HS 05/07/21 05/07/21 tiotropium bromide 2.5 2 puff INHALATION DAILY 05/07/21 05/07/21 mcg/actuation mist for inhalation insulin aspar prot-insulin aspart 42 unit SUBCUT BIDM 05/09/21 05/09/21 100 unit/mL (70-30) subcutaneous pen (Novolog Mix 70-30FlexPen U-100) Results & Data (ED) Vital Signs Vital Signs - 24 hr 05/07/21 11:07 05/07/21 11:14 05/07/21 11:19 Temperature 37.2 C Temperature Source Oral Pulse Rate 96 H 97 H Pulse Rate [Right Finger] Pulse Rate from SpO2 Sensor 97 H 97 H Pulse Rhythm Regular Pulse Strength Normal Respiratory Rate 18 24 Respiratory Effort / Characteristics Respiratory Depth Respiratory Pattern Blood Pressure 167/93 H 167/93 H Blood Pressure [Left Arm] Blood Pressure Mean 117 117 Blood Pressure Mean [Left Arm] Blood Pressure Position Sitting Pulse Oximetry 100 94 100 Oxygen Delivery Method Nasal Cannula Room Air Nasal Cannula Oxygen Flow Rate 2 2 Fraction of Inspired Oxygen Sepsis Recent Fever Within 48 Hours No Sepsis New/Unexplained Change in Mental Status No Sepsis Action Taken by Nursing No Action Required Oxygen Flow Rate - Titration 2 Pulse Oximetry Post Tiitration 100 05/07/21 13:12 05/07/21 13:14 05/07/21 13:17 Temperature Temperature Source Pulse Rate 105 H Pulse Rate [Right Finger] 107 H 105 H Pulse Rate from SpO2 Sensor Pulse Rhythm Pulse Strength Respiratory Rate 24 22 22 Respiratory Effort / Characteristics Spontaneous Respiratory Depth Respiratory Pattern Blood Pressure Blood Pressure [Left Arm] 187/114 H Blood Pressure Mean Blood Pressure Mean [Left Arm] 138 Blood Pressure Position Pulse Oximetry 91 86 L 91 Oxygen Delivery Method BiPAP BiPAP Oxygen Flow Rate 14 Fraction of Inspired Oxygen 50 50 Sepsis Recent Fever Within 48 Hours Sepsis New/Unexplained Change in Mental Status Sepsis Action Taken by Nursing Oxygen Flow Rate - Titration Pulse Oximetry Post Tiitration 05/07/21 13:57 05/07/21 14:00 05/07/21 14:15 Temperature Temperature Source Pulse Rate Pulse Rate [Right Finger] 108 H Pulse Rate from SpO2 Sensor Pulse Rhythm Pulse Strength Respiratory Rate 24 16 22 Respiratory Effort / Characteristics Spontaneous Labored Non-Labored Spontaneous Respiratory Depth Respiratory Pattern Blood Pressure Blood Pressure [Left Arm] 178/97 H Blood Pressure Mean Blood Pressure Mean [Left Arm] 124 Blood Pressure Position Pulse Oximetry 93 97 91 Oxygen Delivery Method Nasal Cannula BiPAP Oxymask Oxygen Flow Rate 2 4 Fraction of Inspired Oxygen Sepsis Recent Fever Within 48 Hours Sepsis New/Unexplained Change in Mental Status Sepsis Action Taken by Nursing Oxygen Flow Rate - Titration Pulse Oximetry Post Tiitration 05/07/21 14:17 05/07/21 14:22 05/07/21 15:00 Temperature Temperature Source Pulse Rate 108 H 106 H 102 H Pulse Rate [Right Finger] Pulse Rate from SpO2 Sensor 111 H Pulse Rhythm Pulse Strength Respiratory Rate 22 30 H 25 H Respiratory Effort / Characteristics Spontaneous Labored Respiratory Depth Normal Respiratory Pattern Tachypnea Blood Pressure 156/97 H Blood Pressure [Left Arm] Blood Pressure Mean 116 Blood Pressure Mean [Left Arm] Blood Pressure Position Pulse Oximetry 91 93 95 Oxygen Delivery Method BiPAP BiPAP Oxygen Flow Rate Fraction of Inspired Oxygen 50 Sepsis Recent Fever Within 48 Hours Sepsis New/Unexplained Change in Mental Status Sepsis Action Taken by Nursing Oxygen Flow Rate - Titration Pulse Oximetry Post Tiitration 05/07/21 15:30 Temperature Temperature Source Pulse Rate Pulse Rate [Right Finger] Pulse Rate from SpO2 Sensor Pulse Rhythm Pulse Strength Respiratory Rate Respiratory Effort / Characteristics Labored Respiratory Depth Respiratory Pattern Blood Pressure Blood Pressure [Left Arm] Blood Pressure Mean Blood Pressure Mean [Left Arm] Blood Pressure Position Pulse Oximetry 98 Oxygen Delivery Method BiPAP Oxygen Flow Rate Fraction of Inspired Oxygen Sepsis Recent Fever Within 48 Hours Sepsis New/Unexplained Change in Mental Status Sepsis Action Taken by Nursing Oxygen Flow Rate - Titration Pulse Oximetry Post Tiitration Home Medications Current Medication List: was personally reviewed by me Laboratory Data Attestation: I reviewed the patient's lab results. Result diagrams: 05/11/21 05:26 05/12/21 05:20 Lab Results 05/07/21 05/07/21 05/07/21 Range/Units 13:03 13:03 13:03 WBC 9.57 (4.8-10.8) K/uL RBC 4.68 L (4.7-6.1) M/uL Hgb 14.3 (14.0-18.0) g/dL Hct 43.4 (42-52) % MCV 92.7 (80-100) fL MCH 30.6 (25-34) pg MCHC 32.9 (32-36) g/dL RDW Std Deviation 46.4 H (36.4-46.3) fL RDW Coeff of Larry 13.7 (11.5-14.5) % Plt Count 248 (130-400) K/uL MPV 11.3 H (7.4-10.4) fL Immature Gran % (Auto) 0.1 % Neut % (Auto) 80.4 % Lymph % (Auto) 11.8 % [place] % (Auto) 7.3 % Eos % (Auto) 0.3 % Baso % (Auto) 0.1 % Neut # (Auto) 7.69 H (1.4-6.5) K/uL Lymph # (Auto) 1.13 L (1.2-3.4) K/uL [place] # (Auto) 0.70 H (0.11-0.59) K/uL Eos # (Auto) 0.03 (0-0.5) K/uL Baso # (Auto) 0.01 (0-0.2) K/uL Immature Gran # (Auto) 0.01 (0.00-0.02) K/uL PT 11.0 (9.0-12.0) Seconds INR 1.1 (0.9-1.1) APTT 43.6 H (21.0-31.0) Seconds PTT Ratio 1.7 VBG pH (7.36-7.41) VBG pCO2 (38-50) mmHg VBG pO2 mmHg VBG HCO3 mmol/L VBG O2 Saturation % VBG Base Excess mEq/L Barometric Pressure mm/Hg Sodium 140 (136-145) mmol/L Potassium 4.4 (3.5-5.1) mmol/L Chloride 106 (98-107) mmol/L Carbon Dioxide 29 (21-32) mmol/L Anion Gap 5.0 (3-11) BUN 20 H (7-18) mg/dl Creatinine 1.18 (0.6-1.4) mg/dl Est Cr Clr Drug Dosing 60.8 ml/min Est GFR ( Amer) 70.0 ml/min Est GFR (Non-Af Amer) 60.4 ml/min BUN/Creatinine Ratio 17.3 (10-20) Glucose 378 H* (70-99) mg/dl Lactate (0.4-2.0) mmol/L Calcium 8.2 L (8.5-10.1) mg/dl Magnesium 1.7 L (1.8-2.4) mg/dl Total Bilirubin 0.4 (0.2-1) mg/dl AST 17 (15-37) U/L ALT 36 (12-78) U/L Alkaline Phosphatase 131 H (45-117) U/L Total Creatine Kinase 146 (39-308) U/L CK-MB (CK-2) 5.2 H (0.5-3.6) ng/ml CK/CKMB % Calc 3.6 H (0-3.0) Troponin I 0.119 H* (0-0.045) ng/ml C-Reactive Protein (0-0.29) mg/dl NT-Pro-B Natriuret Pep (0-900) pg/ml Total Protein 5.5 L (6.4-8.2) gm/dl Albumin 2.0 L (3.4-5.0) gm/dl Globulin 3.5 (2.5-4.0) gm/dl Albumin/Globulin Ratio 0.6 L (0.9-2) Beta-Hydroxybutyric Acd 2.56 (0.2-2.81) mg/dl Procalcitonin (0-0.5) ng/ml COVID-19 Eval Order SARS-CoV-2 (PCR) (Negative) 05/07/21 05/07/21 05/07/21 Range/Units 13:03 13:03 13:43 WBC (4.8-10.8) K/uL RBC (4.7-6.1) M/uL Hgb (14.0-18.0) g/dL Hct (42-52) % MCV (80-100) fL MCH (25-34) pg MCHC (32-36) g/dL RDW Std Deviation (36.4-46.3) fL RDW Coeff of Larry (11.5-14.5) % Plt Count (130-400) K/uL MPV (7.4-10.4) fL Immature Gran % (Auto) % Neut % (Auto) % Lymph % (Auto) % [place] % (Auto) % Eos % (Auto) % Baso % (Auto) % Neut # (Auto) (1.4-6.5) K/uL Lymph # (Auto) (1.2-3.4) K/uL [place] # (Auto) (0.11-0.59) K/uL Eos # (Auto) (0-0.5) K/uL Baso # (Auto) (0-0.2) K/uL Immature Gran # (Auto) (0.00-0.02) K/uL PT (9.0-12.0) Seconds INR (0.9-1.1) APTT (21.0-31.0) Seconds PTT Ratio VBG pH 7.28 L (7.36-7.41) VBG pCO2 65 H (38-50) mmHg VBG pO2 31 mmHg VBG HCO3 30 mmol/L VBG O2 Saturation < 60.0 % VBG Base Excess 1.2 mEq/L Barometric Pressure 734.4 mm/Hg Sodium (136-145) mmol/L Potassium (3.5-5.1) mmol/L Chloride (98-107) mmol/L Carbon Dioxide (21-32) mmol/L Anion Gap (3-11) BUN (7-18) mg/dl Creatinine (0.6-1.4) mg/dl Est Cr Clr Drug Dosing ml/min Est GFR ( Amer) ml/min Est GFR (Non-Af Amer) ml/min BUN/Creatinine Ratio (10-20) Glucose (70-99) mg/dl Lactate 0.5 (0.4-2.0) mmol/L Calcium (8.5-10.1) mg/dl Magnesium (1.8-2.4) mg/dl Total Bilirubin (0.2-1) mg/dl AST (15-37) U/L ALT (12-78) U/L Alkaline Phosphatase (45-117) U/L Total Creatine Kinase (39-308) U/L CK-MB (CK-2) (0.5-3.6) ng/ml CK/CKMB % Calc (0-3.0) Troponin I (0-0.045) ng/ml C-Reactive Protein (0-0.29) mg/dl NT-Pro-B Natriuret Pep (0-900) pg/ml Total Protein (6.4-8.2) gm/dl Albumin (3.4-5.0) gm/dl Globulin (2.5-4.0) gm/dl Albumin/Globulin Ratio (0.9-2) Beta-Hydroxybutyric Acd (0.2-2.81) mg/dl Procalcitonin < 0.05 (0-0.5) ng/ml COVID-19 Eval Order SARS-CoV-2 (PCR) (Negative) 05/07/21 05/07/21 05/07/21 Range/Units 13:43 14:05 14:05 WBC (4.8-10.8) K/uL RBC (4.7-6.1) M/uL Hgb (14.0-18.0) g/dL Hct (42-52) % MCV (80-100) fL MCH (25-34) pg MCHC (32-36) g/dL RDW Std Deviation (36.4-46.3) fL RDW Coeff of Larry (11.5-14.5) % Plt Count (130-400) K/uL MPV (7.4-10.4) fL Immature Gran % (Auto) % Neut % (Auto) % Lymph % (Auto) % [place] % (Auto) % Eos % (Auto) % Baso % (Auto) % Neut # (Auto) (1.4-6.5) K/uL Lymph # (Auto) (1.2-3.4) K/uL [place] # (Auto) (0.11-0.59) K/uL Eos # (Auto) (0-0.5) K/uL Baso # (Auto) (0-0.2) K/uL Immature Gran # (Auto) (0.00-0.02) K/uL PT (9.0-12.0) Seconds INR (0.9-1.1) APTT (21.0-31.0) Seconds PTT Ratio VBG pH (7.36-7.41) VBG pCO2 (38-50) mmHg VBG pO2 mmHg VBG HCO3 mmol/L VBG O2 Saturation % VBG Base Excess mEq/L Barometric Pressure mm/Hg Sodium (136-145) mmol/L Potassium (3.5-5.1) mmol/L Chloride (98-107) mmol/L Carbon Dioxide (21-32) mmol/L Anion Gap (3-11) BUN (7-18) mg/dl Creatinine (0.6-1.4) mg/dl Est Cr Clr Drug Dosing ml/min Est GFR ( Amer) ml/min Est GFR (Non-Af Amer) ml/min BUN/Creatinine Ratio (10-20) Glucose (70-99) mg/dl Lactate (0.4-2.0) mmol/L Calcium (8.5-10.1) mg/dl Magnesium (1.8-2.4) mg/dl Total Bilirubin (0.2-1) mg/dl AST (15-37) U/L ALT (12-78) U/L Alkaline Phosphatase (45-117) U/L Total Creatine Kinase (39-308) U/L CK-MB (CK-2) (0.5-3.6) ng/ml CK/CKMB % Calc (0-3.0) Troponin I (0-0.045) ng/ml C-Reactive Protein 1.05 H (0-0.29) mg/dl NT-Pro-B Natriuret Pep 62971 H (0-900) pg/ml Total Protein (6.4-8.2) gm/dl Albumin (3.4-5.0) gm/dl Globulin (2.5-4.0) gm/dl Albumin/Globulin Ratio (0.9-2) Beta-Hydroxybutyric Acd (0.2-2.81) mg/dl Procalcitonin (0-0.5) ng/ml COVID-19 Eval Order Covid19 at [facility] SARS-CoV-2 (PCR) NEGATIVE (Negative) Administered Medications Apixaban (Apixaban 5 Mg Tablet) 10 mg PO BID MABEL Stop: 06/08/21 20:59 Last Admin: 05/12/21 19:22 Dose: 10 mg Documented by: [id number] Admin: 05/12/21 08:20 Dose: 10 mg Documented by: [id number] Admin: 05/11/21 19:37 Dose: 10 mg Documented by: [id number] Admin: 05/11/21 08:34 Dose: 10 mg Documented by: [id number] Admin: 05/10/21 20:42 Dose: 10 mg Documented by: [id number] Admin: 05/10/21 08:44 Dose: 10 mg Documented by: [id number] Admin: 05/09/21 21:13 Dose: 10 mg Documented by: [id number] Aspirin (Aspirin 81 Mg Ectab) 81 mg PO DAILY MABEL Stop: 06/07/21 08:59 Last Admin: 05/12/21 08:21 Dose: 81 mg Documented by: [id number] Admin: 05/11/21 08:34 Dose: 81 mg Documented by: [id number] Admin: 05/10/21 08:44 Dose: 81 mg Documented by: [id number] Admin: 05/09/21 08:35 Dose: 81 mg Documented by: [id number] Admin: 05/08/21 08:24 Dose: 81 mg Documented by: [id number] Atorvastatin Calcium (Atorvastatin 40 Mg Tab) 80 mg PO DAILY MABEL Stop: 06/07/21 08:59 Last Admin: 05/12/21 08:21 Dose: 80 mg Documented by: [id number] Admin: 05/11/21 08:35 Dose: 80 mg Documented by: [id number] Admin: 05/10/21 08:45 Dose: 80 mg Documented by: [id number] Admin: 05/09/21 08:35 Dose: 80 mg Documented by: [id number] Admin: 05/08/21 08:24 Dose: 80 mg Documented by: [id number] Cyanocobalamin (Cyanocobalamin 500 Mcg Tablet (Vitamin B-12)) 1,000 mcg PO DAILY MABEL Stop: 06/07/21 08:59 Last Admin: 05/12/21 08:21 Dose: 1,000 mcg Documented by: [id number] Admin: 05/11/21 08:35 Dose: 1,000 mcg Documented by: [id number] Admin: 05/10/21 08:44 Dose: 1,000 mcg Documented by: [id number] Admin: 05/09/21 08:35 Dose: 1,000 mcg Documented by: [id number] Admin: 05/08/21 08:24 Dose: 1,000 mcg Documented by: [id number] Furosemide 60 mg/ Syringe 6 mls @ 4 mls/min IV [id number] MABEL Stop: 06/09/21 16:59 Last Admin: 05/12/21 17:03 Dose: Not Given Documented by: [id number] Admin: 05/12/21 08:20 Dose: 4 mls/min Documented by: [id number] Admin: 05/11/21 16:53 Dose: 4 mls/min Documented by: [id number] Admin: 05/11/21 08:36 Dose: 4 mls/min Documented by: [id number] Admin: 05/10/21 17:11 Dose: 4 mls/min Documented by: [id number] Insulin Aspart (Insulin Aspart 100 Units/Ml 3 Ml Pen) 0 units SC ACHS MABEL Stop: 06/06/21 17:59 Last Admin: 05/12/21 19:28 Dose: Not Given Documented by: [id number] Admin: 05/12/21 16:56 Dose: 7 units Documented by: [id number] Cosigned by: [id number] Admin: 05/12/21 12:21 Dose: 8 units Documented by: [id number] Cosigned by: [id number] Admin: 05/12/21 08:23 Dose: 6 units Documented by: [id number] Cosigned by: [id number] Admin: 05/11/21 19:38 Dose: Not Given Documented by: [id number] Cosigned by: [id number] Admin: 05/11/21 16:55 Dose: 10 units Documented by: [id number] Cosigned by: [id number] Admin: 05/11/21 12:28 Dose: 8 units Documented by: [id number] Cosigned by: [id number] Admin: 05/11/21 08:16 Dose: 3 units Documented by: [id number] Cosigned by: [id number] Admin: 05/10/21 20:43 Dose: 1 units Documented by: [id number] Cosigned by: [id number] Admin: 05/10/21 17:09 Dose: 4 units Documented by: [id number] Cosigned by: [id number] Admin: 05/10/21 11:50 Dose: Not Given Documented by: [id number] Admin: 05/10/21 08:35 Dose: Not Given Documented by: [id number] Admin: 05/09/21 21:13 Dose: Not Given Documented by: [id number] Admin: 05/09/21 17:38 Dose: Not Given Documented by: [id number] Admin: 05/09/21 12:25 Dose: 9 units Documented by: [id number] Cosigned by: [id number] Admin: 05/09/21 08:41 Dose: 7 units Documented by: [id number] Cosigned by: [id number] Admin: 05/08/21 21:07 Dose: Not Given Documented by: [id number] Admin: 05/08/21 17:06 Dose: Not Given Documented by: [id number] Admin: 05/08/21 12:32 Dose: 7 units Documented by: [id number] Cosigned by: [id number] Admin: 05/08/21 08:23 Dose: 8 units Documented by: [id number] Cosigned by: [id number] Admin: 05/07/21 21:19 Dose: 9 units Documented by: [id number] Cosigned by: [id number] Admin: 05/07/21 18:34 Dose: 13 units Documented by: [id number] Cosigned by: [id number] Insulin Glargine (Insulin Glargine Solostar 100 Units/Ml 3 Ml Pen) 8 units SC DAILY [facility] Stop: 06/11/21 08:59 Last Admin: 05/12/21 08:22 Dose: 8 units Documented by: [id number] Cosigned by: [id number] Losartan Potassium (Losartan Potassium 50 Mg Tab) 100 mg PO DAILY [facility] Stop: 06/07/21 08:59 Last Admin: 05/12/21 08:21 Dose: 100 mg Documented by: [id number] Admin: 05/11/21 08:36 Dose: 100 mg Documented by: [id number] Admin: 05/10/21 08:44 Dose: 100 mg Documented by: [id number] Admin: 05/09/21 08:36 Dose: 100 mg Documented by: [id number] Admin: 05/08/21 08:24 Dose: 100 mg Documented by: [id number] Metoprolol Succinate (Metoprolol Succ 25mg Ext Rel Tab) 25 mg PO QAM [facility] Stop: 06/10/21 08:59 Last Admin: 05/12/21 08:21 Dose: 25 mg Documented by: [id number] Admin: 05/11/21 08:38 Dose: 25 mg Documented by: [id number] Ondansetron HCl (Ondansetron Inj 2 Mg/Ml 2 Ml Vial) 4 mg IV Q6H PRN PRN Reason: Nausea Stop: 06/06/21 17:30 Last Admin: 05/11/21 23:49 Dose: 4 mg Documented by: [id number] Potassium Chloride (Potassium Chloride Crtab 20 Meq Tabcr) 20 meq PO DAILY MABEL Stop: 06/07/21 08:59 Last Admin: 05/08/21 08:24 Dose: 20 meq Documented by: [id number] Spironolactone (Spironolactone 12.5 Mg Tab) 12.5 mg PO DAILY MABEL Stop: 06/08/21 08:59 Last Admin: 05/12/21 08:22 Dose: 12.5 mg Documented by: [id number] Admin: 05/11/21 08:38 Dose: 12.5 mg Documented by: [id number] Admin: 05/10/21 08:44 Dose: 12.5 mg Documented by: [id number] Admin: 05/09/21 08:36 Dose: 12.5 mg Documented by: [id number] Tamsulosin HCl (Tamsulosin Hcl 0.4 Mg Cap) 0.4 mg PO HS [facility] Stop: 06/06/21 20:59 Last Admin: 05/12/21 19:23 Dose: 0.4 mg Documented by: [id number] Admin: 05/11/21 19:38 Dose: 0.4 mg Documented by: [id number] Admin: 05/10/21 20:42 Dose: 0.4 mg Documented by: [id number] Admin: 05/09/21 21:14 Dose: 0.4 mg Documented by: [id number] Admin: 05/08/21 21:07 Dose: 0.4 mg Documented by: [id number] Admin: 05/07/21 21:19 Dose: 0.4 mg Documented by: [id number] Umeclidinium/Vilanterol (Umeclidinium/Vilanterol 62.5/25mcg 7 Puffs/Inhaler) 1 puffs INH DAILY MABEL Stop: 06/07/21 08:59 Last Admin: 05/12/21 08:22 Dose: 1 puffs Documented by: [id number] Admin: 05/11/21 08:39 Dose: 1 puffs Documented by: [id number] Admin: 05/10/21 08:45 Dose: 1 puffs Documented by: [id number] Admin: 05/09/21 08:36 Dose: 1 puffs Documented by: [id number] Admin: 05/08/21 08:25 Dose: 1 puffs Documented by: [id number] Discontinued Medications Albuterol (Albut/Ipratrop 3mg/0.5mg Neb 3 Ml Vial) 12 ml NEB ONE ONE Stop: 05/07/21 12:46 Last Admin: 05/07/21 13:04 Dose: 12 ml Documented by: [id number] Amlodipine Besylate (Amlodipine Besylate 5 Mg Tab) 10 mg PO DAILY MABEL Stop: 06/06/21 18:44 Last Admin: 05/08/21 08:24 Dose: 10 mg Documented by: [id number] Admin: 05/07/21 19:33 Dose: 10 mg Documented by: [id number] Amoxicillin/Clavulanate Potassium (Amoxicillin/Clavulanate 875 Mg Tab) 1 tab PO BIDM MABEL Stop: 05/12/21 07:59 Last Admin: 05/11/21 16:52 Dose: 1 tab Documented by: [id number] Admin: 05/11/21 08:15 Dose: 1 tab Documented by: [id number] Admin: 05/10/21 17:10 Dose: 1 tab Documented by: [id number] Admin: 05/10/21 09:28 Dose: 1 tab Documented by: [id number] Furosemide (Furosemide 40 Mg/4 Ml Vial) 40 mg IV NOW STA Stop: 05/07/21 14:09 Last Admin: 05/07/21 15:26 Dose: 40 mg Documented by: [id number] Heparin Sodium/Dextrose (Heparin Iv Adult Wt-Based Standard *No* Bolus Protocol) 1 ea N/A ONE ONE; Protocol Stop: 05/07/21 15:02 Last Admin: 05/07/21 18:36 Dose: Not Given Documented by: [id number] Magnesium Sulfate/Dextrose (Magnesium Sulfate / D5w) 1 gm in 100 mls @ 100 mls/hr IV NOW STA Stop: 05/07/21 13:44 Last Infusion: 05/07/21 15:05 Dose: 0 mls/hr Documented by: [id number] Admin: 05/07/21 13:47 Dose: 100 mls/hr Documented by: [id number] Magnesium Sulfate/Dextrose (Magnesium Sulfate / D5w) 1 gm in 100 mls @ 100 mls/hr IV NOW STA Stop: 05/07/21 15:10 Last Infusion: 05/07/21 16:30 Dose: 0 mls/hr Documented by: [id number] Admin: 05/07/21 15:39 Dose: 100 mls/hr Documented by: [id number] Heparin Sodium/Dextrose (Heparin Sodium/Dextrose) 25,000 units in 500 mls @ 28 mls/hr IV .[id number] [facility]; Protocol Stop: 05/09/21 21:00 Last Admin: 05/11/21 01:26 Dose: Not Given Documented by: [id number] Admin: 05/11/21 01:25 Dose: Not Given Documented by: [id number] Admin: 05/10/21 23:36 Dose: Not Given Documented by: [id number] Titration: 05/09/21 21:10 Dose: 0 units/hr, 0 mls/hr Documented by: [id number] Cosigned by: [id number] Titration: 05/09/21 15:07 Dose: 1,400 units/hr, 28 mls/hr Documented by: [id number] Cosigned by: [id number] Titration: 05/09/21 07:31 Dose: 1,400 units/hr, 28 mls/hr Documented by: [id number] Cosigned by: [id number] Admin: 05/09/21 00:34 Dose: 1,500 units/hr, 30 mls/hr Documented by: [id number] Cosigned by: [id number] Titration: 05/09/21 00:34 Dose: 1,500 units/hr, 30 mls/hr Documented by: [id number] Cosigned by: [id number] Titration: 05/08/21 23:21 Dose: 1,500 units/hr, 30 mls/hr Documented by: [id number] Cosigned by: [id number] Admin: 05/08/21 08:22 Dose: 1,500 units/hr, 30 mls/hr Documented by: [id number] Cosigned by: [id number] Titration: 05/08/21 08:22 Dose: 1,500 units/hr, 30 mls/hr Documented by: [id number] Cosigned by: [id number] Titration: 05/08/21 07:14 Dose: 1,500 units/hr, 30 mls/hr Documented by: [id number] Cosigned by: [id number] Titration: 05/08/21 04:41 Dose: 1,500 units/hr, 30 mls/hr Documented by: [id number] Cosigned by: [id number] Titration: 05/07/21 22:09 Dose: 1,500 units/hr, 30 mls/hr Documented by: [id number] Cosigned by: [id number] Titration: 05/07/21 19:05 Dose: 1,400 units/hr, 28 mls/hr Documented by: [id number] Cosigned by: [id number] Admin: 05/07/21 15:33 Dose: 1,400 units/hr, 28 mls/hr Documented by: [id number] Cosigned by: [id number] Piperacillin Sod/Tazobactam Sod (Zosyn) 4.5 gm in 120 mls @ 240 mls/hr IV NOW ONE Stop: 05/07/21 15:38 Last Infusion: 05/07/21 18:38 Dose: 0 mls/hr Documented by: [id number] Admin: 05/07/21 16:38 Dose: 240 mls/hr Documented by: [id number] Ampicillin Sodium/Sulbactam Sodium 3,000 mg/ Sodium Chloride 108 mls @ 200 mls/hr IV Q6H [facility]; Protocol Stop: 05/15/21 00:00 Last Infusion: 05/10/21 06:34 Dose: 0 mls/hr Documented by: [id number] Admin: 05/10/21 05:50 Dose: 200 mls/hr Documented by: [id number] Infusion: 05/10/21 02:01 Dose: 0 mls/hr Documented by: [id number] Admin: 05/10/21 00:00 Dose: 200 mls/hr Documented by: [id number] Infusion: 05/09/21 18:15 Dose: 0 mls/hr Documented by: [id number] Admin: 05/09/21 17:39 Dose: 200 mls/hr Documented by: [id number] Infusion: 05/09/21 13:05 Dose: 0 mls/hr Documented by: [id number] Admin: 05/09/21 12:25 Dose: 200 mls/hr Documented by: [id number] Infusion: 05/09/21 08:09 Dose: 0 mls/hr Documented by: [id number] Admin: 05/09/21 06:20 Dose: 200 mls/hr Documented by: [id number] Infusion: 05/09/21 01:07 Dose: 0 mls/hr Documented by: [id number] Admin: 05/09/21 00:02 Dose: 100 mls/hr Documented by: [id number] Infusion: 05/08/21 18:42 Dose: 0 mls/hr Documented by: [id number] Admin: 05/08/21 17:09 Dose: 100 mls/hr Documented by: [id number] Infusion: 05/08/21 14:14 Dose: 0 mls/hr Documented by: [id number] Admin: 05/08/21 12:59 Dose: 100 mls/hr Documented by: [id number] Infusion: 05/08/21 06:14 Dose: 0 mls/hr Documented by: [id number] Admin: 05/08/21 05:41 Dose: 200 mls/hr Documented by: [id number] Infusion: 05/07/21 23:56 Dose: 0 mls/hr Documented by: [id number] Admin: 05/07/21 23:21 Dose: 200 mls/hr Documented by: [id number] Ampicillin Sodium/Sulbactam Sodium 3,000 mg/ Sodium Chloride 108 mls @ 200 mls/hr IV ONE STA; Protocol Stop: 05/07/21 16:53 Last Infusion: 05/07/21 19:05 Dose: 0 mls/hr Documented by: [id number] Admin: 05/07/21 18:23 Dose: 200 mls/hr Documented by: [id number] Furosemide 40 mg/ Syringe 4 mls @ 4 mls/min IV Q12H MABEL Stop: 06/06/21 18:59 Last Admin: 05/07/21 19:33 Dose: 4 mls/min Documented by: [id number] Furosemide 40 mg/ Syringe 4 mls @ 4 mls/min IV [id number] MABEL Stop: 06/07/21 16:59 Last Admin: 05/10/21 08:44 Dose: 4 mls/min Documented by: [id number] Admin: 05/09/21 17:39 Dose: 4 mls/min Documented by: [id number] Admin: 05/09/21 08:35 Dose: 4 mls/min Documented by: [id number] Admin: 05/08/21 17:05 Dose: 4 mls/min Documented by: [id number] Furosemide 20 mg/ Syringe 2 mls @ 4 mls/min IV ONE ONE Stop: 05/10/21 10:31 Last Admin: 05/10/21 11:14 Dose: 4 mls/min Documented by: [id number] Insulin Aspart (Insulin Aspart Per Unit) 10 units SC NOW STA Stop: 05/07/21 13:57 Last Admin: 05/07/21 15:31 Dose: 10 units Documented by: [id number] Cosigned by: [id number] Insulin Aspart (Insulin Aspart 100 Units/Ml 3 Ml Pen) 0 units SC 0000,0400 [facility] Stop: 05/08/21 04:01 Last Admin: 05/08/21 04:17 Dose: 1 units Documented by: [id number] Cosigned by: [id number] Admin: 05/07/21 23:26 Dose: 5 units Documented by: [id number] Cosigned by: [id number] Insulin Glargine (Insulin Glargine Solostar 100 Units/Ml 3 Ml Pen) 16 units SC 1800 ONE Stop: 05/07/21 18:01 Last Admin: 05/07/21 18:33 Dose: 16 units Documented by: [id number] Cosigned by: [id number] Insulin Glargine (Insulin Glargine Solostar 100 Units/Ml 3 Ml Pen) 16 units SC BID [facility] Stop: 06/07/21 08:59 Last Admin: 05/08/21 21:08 Dose: 16 units Documented by: [id number] Cosigned by: [id number] Admin: 05/08/21 08:23 Dose: 16 units Documented by: [id number] Cosigned by: [id number] Insulin Glargine (Insulin Glargine Solostar 100 Units/Ml 3 Ml Pen) 14 units SC BID [facility] Stop: 06/08/21 08:59 Last Admin: 05/09/21 08:37 Dose: 14 units Documented by: [id number] Cosigned by: [id number] Insulin Glargine (Insulin Glargine Solostar 100 Units/Ml 3 Ml Pen) 0 units SC BID [facility]; Protocol Stop: 06/09/21 08:59 Last Admin: 05/11/21 01:24 Dose: Not Given Documented by: [id number] Admin: 05/10/21 08:46 Dose: 7 units Documented by: [id number] Cosigned by: [id number] Insulin Glargine (Insulin Glargine Solostar 100 Units/Ml 3 Ml Pen) 10 units SC DAILY [facility] Stop: 06/10/21 08:59 Last Admin: 05/11/21 09:31 Dose: 10 units Documented by: [id number] Cosigned by: [id number] Ioversol (Optiray 320 125ml) 120 ml IV ONCE ONE Stop: 05/07/21 14:08 Last Admin: 05/07/21 14:07 Dose: 120 ml Documented by: [id number] Lorazepam (Lorazepam 0.5 Mg Tab) 0.25 mg PO NOW STA Stop: 05/09/21 07:43 Last Admin: 05/09/21 08:34 Dose: 0.25 mg Documented by: [id number] Methylprednisolone (Methylprednisolone 125 Mg/2 Ml Vial) 60 mg IV NOW STA Stop: 05/07/21 13:39 Last Admin: 05/07/21 13:45 Dose: 60 mg Documented by: [id number] Metoprolol Succinate (Metoprolol Succ 25mg Ext Rel Tab) 12.5 mg PO QAM [facility] Stop: 06/08/21 10:59 Last Admin: 05/10/21 08:44 Dose: 12.5 mg Documented by: [id number] Admin: 05/09/21 12:01 Dose: 12.5 mg Documented by: [id number] Metoprolol Succinate (Metoprolol Succ 25mg Ext Rel Tab) 12.5 mg PO ONCE ONE Stop: 05/10/21 10:31 Last Admin: 05/10/21 11:14 Dose: 12.5 mg Documented by: [id number] Miscellaneous (Stop Heparin Order) 1 ea N/A TODAY@2100 ONE Stop: 05/09/21 21:01 Last Admin: 05/09/21 21:15 Dose: 1 ea Documented by: [id number] Umeclidinium/Vilanterol (Umeclidinium/Vilanterol 62.5/25mcg 7 Puffs/Inhaler) 1 puffs INH ONE STA Stop: 05/07/21 16:22 Last Admin: 05/07/21 18:23 Dose: 1 puffs Documented by: [id number] Imaging Data Radiologist's Impression: Chest X-Ray 05/07/21 12:44 SINGLE VIEW CHEST CLINICAL HISTORY: Sepsis. FINDINGS: 2 AP, portable, upright chest radiographs are obtained. No prior studies are available for comparison at the time of dictation. The examination is degraded by portable technique and patient rotation. A right subclavian central venous infusion port is in place. The tip of the catheter projects over the right atrium. The heart is enlarged noting atherosclerotic calcification of the thoracic aorta. There is mild pulmonary vascular congestion. Volume loss is noted in the right lung and may be on a postoperative basis. There are bilateral pleural effusions, right larger than left with consolidation throughout the lower lungs. No pneumothorax is seen. The skeletal structures are osteopenic. There are healed right-sided rib fractures. IMPRESSION: 1. Cardiomegaly with mild pulmonary vascular congestion. 2. Right larger than left pleural effusions with bibasilar consolidation. ACT 112: Negative or not required by law. Electronically signed by: Carlos Nuñez M.D. 05/07/2021 2:03 PM Chest CTA 05/07/21 13:01 CT ANGIOGRAM OF THE CHEST CLINICAL HISTORY: Dyspnea. COMPARISON STUDY: Chest x-ray dated 05/07/2021. TECHNIQUE: Following the IV administration of 120 cc of Optiray 320, CT angiogram of the chest was performed from the upper abdomen to the thoracic i nlet utilizing the pulmonary embolus protocol. Images are reviewed in the axial, sagittal, and coronal planes. 3-D MIPS images are created and assessed. IV contrast was administered without complication. A dose lowering technique was utilized adhering to the principles of ALARA. The examination is compromised by motion artifact. CT DOSE: 534.92 mGy.cm FINDINGS: Thyroid: Normal in size and heterogeneous in attenuation. Thoracic aorta: There is advanced atherosclerotic calcification of the thoracic aorta, which is normal in caliber and demonstrates standard 3-vessel arch anatomy. No evidence of dissection is seen. Pulmonary vasculature: The pulmonary arteries appear dilated suggesting pulmonary artery hypertension. There is thrombus within the right lower lobe pulmonary artery which extends into segmental and subsegmental branches. The remaining pulmonary vessels are clear as imaged. Heart: A right internal jugular central venous infusion port is in place. The heart is markedly enlarged and without pericardial effusion. The coronary arteries and mitral annulus are densely calcified. Reflux of contrast into the IVC and hepatic veins suggests cardiac dysfunction. Lungs and pleural spaces: Evaluation of the lung parenchyma is compromised by motion artifact. Emphysematous change is noted. Volume loss in the right lung may be on a postoperative basis. There are small pleural effusions with bibasilar consolidation. Pleural fluid along the right lateral chest wall is at least partially loculated. A large focus of round atelectasis is suggested at the right lung base. Patchy airspace consolidation is seen throughout the left lung with associated intralobular septal thickening. A 6 mm left upper lobe nodule is seen on image #156. A 12 mm irregular left upper lobe opacity seen anteriorly on image #177. Layering debris is noted in the trachea. Mediastinum: Mildly enlarged mediastinal nodes measure up to 12 mm in short axis. Kathie: Enlarged bilateral hilar nodes measure up to 15 mm in short axis. Axillae: There are shotty axillary nodes. Upper abdomen: Partially visualized upper abdominal viscera is within normal limits. Skeletal structures: The skeletal structures are heterogeneously osteopenic. Degenerative change and hyperkyphosis is seen throughout the thoracic spine. 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 A lytic lesion is seen in the posterior aspect of the T10 vertebral body on image #95. A lesion within the inferior right scapula is seen on image #142. A large expansile lesion within the left anterior 4th rib is seen on image #191. There are numerous healed bilateral rib fractures. Additional smaller lesions are noted. IMPRESSION: 1. Right lower lobe pulmonary embolus as above. 2. Cardiomegaly and emphysema with volume loss in the right lung. Intralobular septal thickening may represent a component of congestive failure and clinical correlation will be required. 3. 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 Correlate with the patient's oncological history. 4. There are small pleural effusions. The right pleural effusion is partially loculated. 5. There is dense consolidation at both lung bases, left greater than right. Cor relate clinically for evidence of pneumonia/aspiration pneumonitis. 6. Mild patchy opacities are seen throughout the left upper lung. This could represent an infectious/inflammatory pneumonitis and/or mild pulmonary edema. 7. There are 2 additional nodular densities in the left lung as above which measure up to 12 mm. These are pathologically indeterminant. Correlate with any prior outside imaging studies. 8. There are mildly enlarged mediastinal and hilar lymph nodes. 9. Additional findings as above. ACT 112: Negative or not required by law. Electronically signed by: Carlos Nuñez M.D. 05/07/2021 2:52 PM Discharge Plan Visit Data Chief Complaint: Shortness of Breath/Dyspnea Stated Complaint: SOB ED Provider: Jose Coffman ED Midlevel Provider: Jeremy Diaz Discharge Problem: Pulmonary embolism, CHF (congestive heart failure), Multiple myeloma Patient Disposition: Admitted As Inpatient Discharge Instructions Interventions: ED Discharge Assessment Last Done: 05/07/21 16:43 Discharge Problem: Pulmonary embolism Qualifiers: Pulmonary embolism type: unspecified Chronicity: unspecified Acute cor pulmonale presence: unspecified Qualified Code(s): I26.99 - Other pulmonary embolism without acute cor pulmonale Multiple myeloma Qualifiers: Multiple myeloma remission status: unspecified Qualified Code(s): C90.00 - Multiple myeloma not having achieved remission
[2021-05-07 16:12] LABS: Appearance Urine Clear (Clear); Bacteria Urine Automated Negative (Negative); Bilirubin Urine Negative (Negative); Blood Urine 2+ (Negative); Color Urine Yellow; Epithelial Cell Urine Auto 20-30 /lpf (0-5); Glucose Urine UA 3+ (Negative); Ketones Urine Negative (Negative); Leukocyte Esterase Urine Negative (Negative); Nitrite Urine Negative (Negative); Protein Urine 4+ (Negative); Specific Gravity Urine > 1.045 (1.000-1.030); Urobilinogen Urine Negative (Negative)
[2021-05-07] MEDS ORDERED: UMECLIDINIUM/VILANTEROL 62.5/25MCG 7 PUFFS/INHALER INH STA (16:21)
[2021-05-07] MEDS ORDERED: AMPICILLIN/SULBACTAM SOD 3,000 MG in 0.9 % SODIUM CHLORIDE 100 ML IV STA (16:21)
[2021-05-07] MEDS ORDERED: POLYETHYLENE (MIRALAX) 17 GM PACK PO PRN (17:31)
[2021-05-07] MEDS ORDERED: ONDANSETRON INJ 2 MG/ML 2 ML VIAL IV PRN (17:31)
[2021-05-07] MEDS ORDERED: PHARMACY GLYCEMIC MGMT CONSULT PRN (17:34)
[2021-05-07] MEDS ORDERED: CARBOHYDRATES FOR HYPOGLYCEMIA PO PRN (18:00)
[2021-05-07] MEDS ORDERED: DEXTROSE 50% 50 ML SYRINGE IV PRN (18:00)
[2021-05-07] MEDS ORDERED: INSULIN GLARGINE SOLOSTAR 100 UNITS/ML 3 ML PEN SC ONE (18:00)
[2021-05-07] MEDS ORDERED: GLUCAGON FOR INJ 1 MG VIAL IM PRN (18:00)
[2021-05-07] MEDS ORDERED: GLUCOSE 40% GEL 15 GM TUBE PO PRN (18:00)
[2021-05-07] MEDS ORDERED: GLUCOSE 10 TABS/TUBE PO PRN (18:00)
[2021-05-07 18:25] LABS: Base Excess ABG -0.2 mEq/L (-9-1.8); HCO3 ABG 28 mmol/L (19-24); Oxygen Saturation ABG 94.7 % (90-95); PCO2 ABG 59 mmHg (35-46); PO2 ABG 77 mmHg (80-95); pH ABG 7.29 (7.35-7.45)
--- NOTE | 2021-05-07 18:30 | Communication Note ---
Date of Service: May 07, 2021 History and physical exam performed by me as detailed by Mary Ann Sampson PA-C.
[2021-05-07] MEDS: INSULIN ASPART 100 UNITS/ML 3 ML PEN SC SCH ×3 (18:34→23:26)
[2021-05-07] MEDS ORDERED: ALBUTEROL HFA 8 GM INHALER INH PRN (18:37)
[2021-05-07] MEDS ORDERED: ALBUT/IPRATROP 3MG/0.5MG NEB 3 ML VIAL NEB PRN (18:40)
[2021-05-07 18:47] LABS: Allen Test Pos (Pos)
[2021-05-07] MEDS ORDERED: FUROSEMIDE 40 MG in SYRINGE 0 ML IV SCH (19:00)
[2021-05-07] MEDS: amLODIPine BESYLATE 5 MG TAB PO SCH (19:33)
[2021-05-07 20:20] LABS: Base Excess VBG 1.3 mEq/L; Oxygen Saturation VBG 73.4 %; pH VBG 7.28 (7.36-7.41)
[2021-05-07] MEDS: TAMSULOSIN HCL 0.4 MG CAP PO SCH (21:19)
[2021-05-07 22:06] LABS: Partial Thromboplastin Ratio 1.6; Partial Thromboplastin Time 41.4 Seconds (21.0-31.0)
[2021-05-07] MEDS: AMPICILLIN/SULBACTAM SOD 3,000 MG in 0.9 % SODIUM CHLORIDE 100 ML IV SCH (23:21)
[2021-05-08] MEDS ORDERED: HEPARIN 100 UNIT/ML 5ML FLUSH FLUSH PRN (00:14)
[2021-05-08 04:10] LABS: Hematocrit (blood only) 39.4 % (42-52); Hemoglobin 13.1 g/dL (14.0-18.0); Mean Corpuscular Hemoglobin 30.5 pg (25-34); Mean Corpuscular Hgb Conc 33.2 g/dL (32-36); Mean Corpuscular Volume 91.6 fL (80-100); Platelet Count 222 K/uL (130-400); RDW Coefficient of Variation 13.4 % (11.5-14.5); RDW Standard Deviation 44.5 fL (36.4-46.3); White Blood Count 8.12 K/uL (4.8-10.8)
[2021-05-08 04:12] LABS: Base Excess VBG 2.6 mEq/L; Oxygen Saturation VBG 70.4 %; pH VBG 7.31 (7.36-7.41)
[2021-05-08] MEDS: INSULIN ASPART 100 UNITS/ML 3 ML PEN SC SCH ×5 (04:17→21:07)
[2021-05-08 04:32] LABS: BUN Creatinine Ratio 18.9 (10-20); Calcium 7.9 mg/dl (8.5-10.1)
[2021-05-08 04:38] LABS: Partial Thromboplastin Ratio 2.4
[2021-05-08 04:39] LABS: Partial Thromboplastin Time 62.9 Seconds (21.0-31.0)
[2021-05-08] MEDS: AMPICILLIN/SULBACTAM SOD 3,000 MG in 0.9 % SODIUM CHLORIDE 100 ML IV SCH ×3 (05:41→17:09)
[2021-05-08 07:00] LABS: Estimated Average Glucose 295 mg/dl; Hemoglobin A1C 11.9 % (4.5-5.6)
[2021-05-08] MEDS: HEPARIN SODIUM/DEXTROSE 25,000 UNITS/500 ML BAG IV SCH (08:22)
[2021-05-08] MEDS: INSULIN GLARGINE SOLOSTAR 100 UNITS/ML 3 ML PEN SC SCH ×2 (08:23→21:08)
[2021-05-08] MEDS: LOSARTAN POTASSIUM 50 MG TAB PO SCH (08:24)
[2021-05-08] MEDS: amLODIPine BESYLATE 5 MG TAB PO SCH (08:24)
[2021-05-08] MEDS: ATORVASTATIN 40 MG TAB PO SCH (08:24)
[2021-05-08] MEDS: CYANOCOBALAMIN 500 MCG TABLET (VITAMIN B-12) PO SCH (08:24)
[2021-05-08] MEDS: ASPIRIN 81 MG ECTAB PO SCH (08:24)
[2021-05-08] MEDS: UMECLIDINIUM/VILANTEROL 62.5/25MCG 7 PUFFS/INHALER INH SCH (08:25)
--- NOTE | 2021-05-08 08:50 | Cardiology Consultation ---
Date of Consultation May 08, 2021 Assessment & Plan (1) Acute on chronic systolic CHF (congestive heart failure): Newly diagnosed HFrEF with mild RV dysfunction. 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 Remains hypervolemic on exam. Coarse lung sounds with continued lower extremity edema. Can consider transition to oral diuretic therapy within the next day or so. Pulmonary embolism diagnosed this admission. 1. Recommending optimization of his medications to goal-directed medical therapy to improve LVEF. Continue losartan 100 mg daily Norvasc could be contributing to some of his hypervolemia, discontinue Norvasc and start spironolactone 12.5 mg daily, okay to start tomorrow morning. Will hold potassium supplementation at this time. Will reassess upon repeat BMP. Trend BMP over hospital course. 2. Recommend continued with diuresis IV Lasix 40 mg twice daily. 3. Can consider outpatient nuclear stress test following discharge. (2) Pulmonary embolism: Right lower lobe PE on CTA of chest. On IV heparin-we will defer to hospitalist team for hematology for anticoagulation management. Troponin slightly elevated 0.110, 0.133 likely in the setting of pulmonary embolism. Can consider outpatient nuclear stress test following discharge. (3) Acute respiratory failure with hypoxia and hypercapnia: Upon presentation to the hospital patient was hypoxic, 86% on room air and has now improved to 2 100% on 6 L oxymask. Underlying COPD. Continue tobacco user. Patient is currently being treated for possible pneumonia. (4) HTN (hypertension): Controlled. Will discontinue Norvasc and start spironolactone in its place. Plan as stated above (5) DM type 2, uncontrolled, with neuropathy: Uncontrolled. A1c 11.9. Will defer to hospitalist team for diabetic management. (6) Multiple myeloma: Receives cancer care at [facility] in [place] for IgG kappa multiple myeloma. Regimen includes monthly daratumumab (7) PAD (peripheral artery disease): History of stenting in his left lower extremity. Normally maintained on aspirin and Plavix. Plavix is currently on hold, awaiting outpatient records. Continue aspirin at this time. Supervising Physician Co-Signing Physician Notes Patient seen and examined with RUBEN Patel. Agree with findings and assessment as above. Patient with significant biventricular failure, RV strain noted status post PE. Patient is significantly preload dependent but does examine his volume overloaded.We will continue with twice daily Lasix as pressure tolerates. Given reduced LV systolic function his calcium channel bhavya will be discontinued and replaced with spironolactone. History of Present Illness Reason for Consultation: Heart failure with reduced ejection fraction, RV strain in the setting of PE ,volume overload. Requesting Physician: Elisabeth chisholm Attending Physician: Kayla Moreno MD History of Present Illness 76-year-old male who presented to the emergency department 05/07/2021 due to progressive shortness of breath over the last few months. Was seen by the [facility] and was sent to the emergency department for further evaluation due to shortness of breath and lower extremity edema. Upon presentation patient was hypoxic on room air satting about 86%-oxygenation improved with BiPAP and supplemental oxygen. Patient was found to have a pulmonary embolism in the right lower lobe per CTA of the chest and was started on IV heparin. Troponin was slightly elevated at 0.119. Echocardiogram results showed a severely reduced LVEF of 15 to 20% and moderate concentric LVH. There was severe global hypokinesis with abnormal septal wall motion consistent with RV pressure/volume overload. RV systolic function reduced. Full report listed below. Patient was hypervolemic with a proBNP of 24,000 and was treated with IV diuretics, currently on 40 mg IV Lasix twice daily. Patient was started on IV heparin for treatment of PE. Upon entrance to the room patient was laying comfortably supine in bed without any head of bed elevation. He was in no acute distress. Breathing was nonlabored. Requiring Oxymask 6L, SPO2 100%. Notes that he has been under a great deal of stress recently. States that he was from his x3 years and recently finalized a divorce at the end of February. Notes that he has not been taking care of himself over the last few years. Smokes at least 1 pack of cigarettes daily over the last 60 years. Notes that he is a and disabled. Has significant neuropathy in his bilateral lower extremities that has decreased his level of activity immensely. Patient lives a primarily sedent jean claude lifestyle. Denies any chest pain. Shortness of breath is significantly improved since the addition of supplemental oxygenation. No palpitations, dizziness, syncope or near syncope. No orthopnea, PND. No fever, chills, cough, hematochezia, melena, or hemoptysis. Continues to have lower extremity edema with the left leg being worse than the right, this is chronic. Personal report of peripheral artery stenting to the left lower extremity of unknown location, normally maintains on aspirin and Plavix. Denies any history of coronary artery disease. surveillance system monitor reviewed revealing sinus rhythm with PACs and PVCs overnight, right bundle branch block- v rates averaging between 70 and 80 bpm. Blood pressure stable. Negative 289.7 mL, today's weight 96.7 kg Lab work reviewed, summary: Troponin trended 0.110, 0.133 BNP elevated 24,000 Serum creatinine 1.14 Hemoglobin 13.1 A1c 11.9 Past medical history * COPD- current smoker, at least 1ppd x60 years * Multiple myeloma, receives care at [facility] in [place] for IgG kappa multiple myeloma. Regimen includes monthly daratumumab * Peripheral arterial disease, normally maintained on aspirin and Plavix-unknown specifics, questionable stent to left lower extremity * Hypertension * Diabetes type 2, uncontrolled with neuropathy * History of BHARTI * Known medication noncompliance with antihypertensives, Lasix, diabetic medi cations, aspirin, and Plavix Allergies Allergy/AdvReac Type Severity Reaction Status Date / Time gabapentin Allergy Rash Unverified 05/07/21 11:50 metformin Allergy Diarrhea Unverified 05/07/21 11:50 Home Medications Medication Instructions Recorded Confirmed Type albuterol sulfate 90 mcg/actuation 2 inh INHALATION QID PRN 05/07/21 05/07/21 History aerosol inhaler amlodipine 10 mg tablet 10 mg PO DAILY 05/07/21 05/07/21 History aspirin 81 mg capsule 81 mg PO DAILY 05/07/21 05/07/21 History atorvastatin 80 mg tablet 80 mg PO DAILY 05/07/21 05/07/21 History capsaicin 0.075 % topical cream 1 applic TOPICAL TID PRN 05/07/21 05/07/21 History clopidogrel 75 mg tablet (Plavix) 75 mg PO DAILY 05/07/21 05/07/21 History cyanocobalamin (vitamin B-12) 1,000 mcg PO DAILY 05/07/21 05/07/21 History 1,000 mcg tablet furosemide 80 mg tablet (Lasix) 80 mg PO DAILY 05/07/21 05/07/21 History hydrochlorothiazide 25 mg tablet 25 mg PO DAILY 05/07/21 05/07/21 History insulin aspart U-100 100 unit/mL 30 unit SUBCUT BID 05/07/21 05/07/21 History subcutaneous cartridge losartan 100 mg tablet 100 mg PO DAILY 05/07/21 05/07/21 History montelukast 10 mg tablet 10 mg PO DAILY 05/07/21 05/07/21 History omega-3 fatty acids 500 mg PO DAILY 05/07/21 05/07/21 History potassium chloride 20 mEq 20 meq PO DAILY 05/07/21 05/07/21 History tablet,extended release tamsulosin 0.4 mg capsule 0.4 mg PO HS 05/07/21 05/07/21 History tiotropium bromide 2.5 2 puff INHALATION DAILY 05/07/21 05/07/21 History mcg/actuation mist for inhalation Patient History Medical History DM type 2, uncontrolled, with neuropathy HTN (hypertension) PAD (peripheral artery disease) Surgical History History of lung surgery ROBOTIC THORACOSCOPY SURGICAL PARTIAL PULMONARY DECORTICATION, [facility] [place] [facility] [place] 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 Family History Other Colorectal cancer Heart disease Social History Smoking Status: Current every day smoker Tobacco Type: Cigars packs per day: 1; Years Smoked: 60; Second Hand Exposure: Yes; Hx Alcohol Use: No Hx Substance Use: Yes Non-Prescribed Medications: Marijuana Last Used Substance: Unknown Preferred Language: Kyrgyz Communication Ability: Effective Beliefs That Will Affect Care: None Current Living Situation: Alone Feels Safe at Home: Yes Assistive Devices: BiPap, Cane, Denture - Upper, Denture - Lower and Glasses Review of Systems Review of Systems: All systems reviewed & are unremarkable except as noted in HPI & below Physical Exam Physical Exam: General: No acute distress. A+Ox3. HEENT: Normocephalic. Atraumatic. Conjunctiva and sclera clear. NECK: No carotid bruits. No JVD. Carotid upstrokes are brisk. Heart: Diminished heart sound, no murmur appreciated. Lungs: Coarse lung sounds, +wheezing, crackles. +cough Abdomen: Normal bowel sounds. Soft. Nontender. No masses or organomegaly. No abdominal bruits. Extremities: +1 left lower extremity pitting edema, +2 right lower extremity pitting edema, bilateral upper extremity nonpitting edema. No clubbing or cyanosis. Pulses: radial=2/4, posterior tibial=2/4, dorsalis pedis = 2/4. NEURO: No focal deficits. PSYCH: Normal. Results & Data ([facility]) Vital Signs (Past 12 Hours) Vital Signs Temp Pulse Pulse Resp BP Pulse Ox 05/08/21 07:51 84 05/08/21 07:29 36.4 C L 85 25 H 131/69 100 05/08/21 04:17 36.5 C 86 15 121/70 99 05/08/21 03:19 36.8 C 94 H 19 118/70 98 05/08/21 00:00 87 05/07/21 23:11 36.5 C 86 19 136/70 100 Laboratory Results 05/08/21 05/08/21 05/08/21 Range/Units 07:09 03:58 03:58 WBC 8.12 (4.8-10.8) K/uL RBC 4.30 L (4.7-6.1) M/uL Hgb 13.1 L (14.0-18.0) g/dL Hct 39.4 L (42-52) % MCV 91.6 (80-100) fL MCH 30.5 (25-34) pg MCHC 33.2 (32-36) g/dL RDW Std Deviation 44.5 (36.4-46.3) fL RDW Coeff of Larry 13.4 (11.5-14.5) % Plt Count 222 (130-400) K/uL MPV 11.0 H (7.4-10.4) fL Immature Gran % (Auto) % Neut % (Auto) % Lymph % (Auto) % [place] % (Auto) % Eos % (Auto) % Baso % (Auto) % Neut # (Auto) (1.4-6.5) K/uL Lymph # (Auto) (1.2-3.4) K/uL [place] # (Auto) (0.11-0.59) K/uL Eos # (Auto) (0-0.5) K/uL Baso # (Auto) (0-0.2) K/uL Immature Gran # (Auto) (0.00-0.02) K/uL PT (9.0-12.0) Seconds INR (0.9-1.1) APTT (21.0-31.0) Seconds PTT Ratio ABG pH (7.35-7.45) ABG pCO2 (35-46) mmHg ABG pO2 (80-95) mmHg ABG HCO3 (19-24) mmol/L ABG O2 Saturation (90-95) % ABG Base Excess (-9-1.8) mEq/L Paulino Test (Pos) VBG pH (7.36-7.41) VBG pCO2 (38-50) mmHg VBG pO2 mmHg VBG HCO3 mmol/L VBG O2 Saturation % VBG Base Excess mEq/L Barometric Pressure mm/Hg Oxygen Given Sodium 136 (136-145) mmol/L Potassium 4.0 (3.5-5.1) mmol/L Chloride 106 (98-107) mmol/L Carbon Dioxide 30 (21-32) mmol/L Anion Gap 0 L (3-11) BUN 22 H (7-18) mg/dl Creatinine 1.14 (0.6-1.4) mg/dl Est Cr Clr Drug Dosing 63.0 ml/min Est GFR ( Amer) 73.0 ml/min Est GFR (Non-Af Amer) 63.0 ml/min BUN/Creatinine Ratio 18.9 (10-20) Glucose 188 H (70-99) mg/dl POC Glucose 165 H (70-99) mg/dl Estimat Average Glucose mg/dl Hemoglobin A1c (4.5-5.6) % Lactate (0.4-2.0) mmol/L Calcium 7.9 L (8.5-10.1) mg/dl Magnesium (1.8-2.4) mg/dl Total Bilirubin (0.2-1) mg/dl AST (15-37) U/L ALT (12-78) U/L Alkaline Phosphatase (45-117) U/L Total Creatine Kinase (39-308) U/L CK-MB (CK-2) (0.5-3.6) ng/ml CK/CKMB % Calc (0-3.0) Troponin I (0-0.045) ng/ml C-Reactive Protein (0-0.29) mg/dl NT-Pro-B Natriuret Pep (0-900) pg/ml Total Protein (6.4-8.2) gm/dl Albumin (3.4-5.0) gm/dl Globulin (2.5-4.0) gm/dl Albumin/Globulin Ratio (0.9-2) Beta-Hydroxybutyric Acd (0.2-2.81) mg/dl Procalcitonin (0-0.5) ng/ml Urine Color Urine Appearance (Clear) Urine pH (4.5-7.5) Ur Specific [place] (1.000-1.030) Urine Protein (Negative) Urine Glucose (UA) (Negative) Urine Ketones (Negative) Urine Blood (Negative) Urine Nitrite (Negative) Urine Bilirubin (Negative) Urine Urobilinogen (Negative) Ur Leukocyte Esterase (Negative) Urine WBC (Auto) (0-5) /hpf Urine RBC (Auto) (0-4) /hpf U Hyaline Cast (Auto) (0-5) /lpf U Epithel Cells (Auto) (0-5) /lpf Urine Bacteria (Auto) (Negative) Nasal Screen MRSA (PCR) (Negative) COVID-19 Eval Order SARS-CoV-2 (PCR) (Negative) Hepatitis C Ab Screen 05/08/21 05/08/21 05/08/21 Range/Units 03:58 03:58 03:58 WBC (4.8-10.8) K/uL RBC (4.7-6.1) M/uL Hgb (14.0-18.0) g/dL Hct (42-52) % MCV (80-100) fL MCH (25-34) pg MCHC (32-36) g/dL RDW Std Deviation (36.4-46.3) fL RDW Coeff of Larry (11.5-14.5) % Plt Count (130-400) K/uL MPV (7.4-10.4) fL Immature Gran % (Auto) % Neut % (Auto) % Lymph % (Auto) % [place] % (Auto) % Eos % (Auto) % Baso % (Auto) % Neut # (Auto) (1.4-6.5) K/uL Lymph # (Auto) (1.2-3.4) K/uL [place] # (Auto) (0.11-0.59) K/uL Eos # (Auto) (0-0.5) K/uL Baso # (Auto) (0-0.2) K/uL Immature Gran # (Auto) (0.00-0.02) K/uL PT (9.0-12.0) Seconds INR (0.9-1.1) APTT 62.9 H* (21.0-31.0) Seconds PTT Ratio 2.4 ABG pH (7.35-7.45) ABG pCO2 (35-46) mmHg ABG pO2 (80-95) mmHg ABG HCO3 (19-24) mmol/L ABG O2 Saturation (90-95) % ABG Base Excess (-9-1.8) mEq/L Paulino Test (Pos) VBG pH (7.36-7.41) VBG pCO2 (38-50) mmHg VBG pO2 mmHg VBG HCO3 mmol/L VBG O2 Saturation % VBG Base Excess mEq/L Barometric Pressure mm/Hg Oxygen Given Sodium (136-145) mmol/L Potassium (3.5-5.1) mmol/L Chloride (98-107) mmol/L Carbon Dioxide (21-32) mmol/L Anion Gap (3-11) BUN (7-18) mg/dl Creatinine (0.6-1.4) mg/dl Est Cr Clr Drug Dosing ml/min Est GFR ( Amer) ml/min Est GFR (Non-Af Amer) ml/min BUN/Creatinine Ratio (10-20) Glucose (70-99) mg/dl POC Glucose (70-99) mg/dl Estimat Average Glucose 295 mg/dl Hemoglobin A1c 11.9 H (4.5-5.6) % Lactate (0.4-2.0) mmol/L Calcium (8.5-10.1) mg/dl Magnesium (1.8-2.4) mg/dl Total Bilirubin (0.2-1) mg/dl AST (15-37) U/L ALT (12-78) U/L Alkaline Phosphatase (45-117) U/L Total Creatine Kinase (39-308) U/L CK-MB (CK-2) (0.5-3.6) ng/ml CK/CKMB % Calc (0-3.0) Troponin I (0-0.045) ng/ml C-Reactive Protein (0-0.29) mg/dl NT-Pro-B Natriuret Pep (0-900) pg/ml Total Protein (6.4-8.2) gm/dl Albumin (3.4-5.0) gm/dl Globulin (2.5-4.0) gm/dl Albumin/Globulin Ratio (0.9-2) Beta-Hydroxybutyric Acd (0.2-2.81) mg/dl Procalcitonin (0-0.5) ng/ml Urine Color Urine Appearance (Clear) Urine pH (4.5-7.5) Ur Specific [place] (1.000-1.030) Urine Protein (Negative) Urine Glucose (UA) (Negative) Urine Ketones (Negative) Urine Blood (Negative) Urine Nitrite (Negative) Urine Bilirubin (Negative) Urine Urobilinogen (Negative) Ur Leukocyte Esterase (Negative) Urine WBC (Auto) (0-5) /hpf Urine RBC (Auto) (0-4) /hpf U Hyaline Cast (Auto) (0-5) /lpf U Epithel Cells (Auto) (0-5) /lpf Urine Bacteria (Auto) (Negative) Nasal Screen MRSA (PCR) (Negative) COVID-19 Eval Order SARS-CoV-2 (PCR) (Negative) Hepatitis C Ab Screen Pending 05/08/21 05/08/21 05/08/21 Range/Units 03:58 03:57 00:43 WBC (4.8-10.8) K/uL RBC (4.7-6.1) M/uL Hgb (14.0-18.0) g/dL Hct (42-52) % MCV (80-100) fL MCH (25-34) pg MCHC (32-36) g/dL RDW Std Deviation (36.4-46.3) fL RDW Coeff of Larry (11.5-14.5) % Plt Count (130-400) K/uL MPV (7.4-10.4) fL Immature Gran % (Auto) % Neut % (Auto) % Lymph % (Auto) % [place] % (Auto) % Eos % (Auto) % Baso % (Auto) % Neut # (Auto) (1.4-6.5) K/uL Lymph # (Auto) (1.2-3.4) K/uL [place] # (Auto) (0.11-0.59) K/uL Eos # (Auto) (0-0.5) K/uL Baso # (Auto) (0-0.2) K/uL Immature Gran # (Auto) (0.00-0.02) K/uL PT (9.0-12.0) Seconds INR (0.9-1.1) APTT (21.0-31.0) Seconds PTT Ratio ABG pH (7.35-7.45) ABG pCO2 (35-46) mmHg ABG pO2 (80-95) mmHg ABG HCO3 (19-24) mmol/L ABG O2 Saturation (90-95) % ABG Base Excess (-9-1.8) mEq/L Paulino Test (Pos) VBG pH 7.31 L (7.36-7.41) VBG pCO2 61 H (38-50) mmHg VBG pO2 39 mmHg VBG HCO3 30 mmol/L VBG O2 Saturation 70.4 % VBG Base Excess 2.6 mEq/L Barometric Pressure 732.8 mm/Hg Oxygen Given Sodium (136-145) mmol/L Potassium (3.5-5.1) mmol/L Chloride (98-107) mmol/L Carbon Dioxide (21-32) mmol/L Anion Gap (3-11) BUN (7-18) mg/dl Creatinine (0.6-1.4) mg/dl Est Cr Clr Drug Dosing ml/min Est GFR ( Amer) ml/min Est GFR (Non-Af Amer) ml/min BUN/Creatinine Ratio (10-20) Glucose (70-99) mg/dl POC Glucose 171 H (70-99) mg/dl Estimat Average Glucose mg/dl Hemoglobin A1c (4.5-5.6) % Lactate (0.4-2.0) mmol/L Calcium (8.5-10.1) mg/dl Magnesium (1.8-2.4) mg/dl Total Bilirubin (0.2-1) mg/dl AST (15-37) U/L ALT (12-78) U/L Alkaline Phosphatase (45-117) U/L Total Creatine Kinase (39-308) U/L CK-MB (CK-2) (0.5-3.6) ng/ml CK/CKMB % Calc (0-3.0) Troponin I 0.133 H* (0-0.045) ng/ml C-Reactive Protein (0-0.29) mg/dl NT-Pro-B Natriuret Pep (0-900) pg/ml Total Protein (6.4-8.2) gm/dl Albumin (3.4-5.0) gm/dl Globulin (2.5-4.0) gm/dl Albumin/Globulin Ratio (0.9-2) Beta-Hydroxybutyric Acd (0.2-2.81) mg/dl Procalcitonin (0-0.5) ng/ml Urine Color Urine Appearance (Clear) Urine pH (4.5-7.5) Ur Specific [place] (1.000-1.030) Urine Protein (Negative) Urine Glucose (UA) (Negative) Urine Ketones (Negative) Urine Blood (Negative) Urine Nitrite (Negative) Urine Bilirubin (Negative) Urine Urobilinogen (Negative) Ur Leukocyte Esterase (Negative) Urine WBC (Auto) (0-5) /hpf Urine RBC (Auto) (0-4) /hpf U Hyaline Cast (Auto) (0-5) /lpf U Epithel Cells (Auto) (0-5) /lpf Urine Bacteria (Auto) (Negative) Nasal Screen MRSA (PCR) (Negative) COVID-19 Eval Order SARS-CoV-2 (PCR) (Negative) Hepatitis C Ab Screen 05/07/21 05/07/21 05/07/21 Range/Units 23:15 21:33 20:38 WBC (4.8-10.8) K/uL RBC (4.7-6.1) M/uL Hgb (14.0-18.0) g/dL Hct (42-52) % MCV (80-100) fL MCH (25-34) pg MCHC (32-36) g/dL RDW Std Deviation (36.4-46.3) fL RDW Coeff of Larry (11.5-14.5) % Plt Count (130-400) K/uL MPV (7.4-10.4) fL Immature Gran % (Auto) % Neut % (Auto) % Lymph % (Auto) % [place] % (Auto) % Eos % (Auto) % Baso % (Auto) % Neut # (Auto) (1.4-6.5) K/uL Lymph # (Auto) (1.2-3.4) K/uL [place] # (Auto) (0.11-0.59) K/uL Eos # (Auto) (0-0.5) K/uL Baso # (Auto) (0-0.2) K/uL Immature Gran # (Auto) (0.00-0.02) K/uL PT (9.0-12.0) Seconds INR (0.9-1.1) APTT 41.4 H (21.0-31.0) Seconds PTT Ratio 1.6 ABG pH (7.35-7.45) ABG pCO2 (35-46) mmHg ABG pO2 (80-95) mmHg ABG HCO3 (19-24) mmol/L ABG O2 Saturation (90-95) % ABG Base Excess (-9-1.8) mEq/L Paulino Test (Pos) VBG pH (7.36-7.41) VBG pCO2 (38-50) mmHg VBG pO2 mmHg VBG HCO3 mmol/L VBG O2 Saturation % VBG Base Excess mEq/L Barometric Pressure mm/Hg Oxygen Given Sodium (136-145) mmol/L Potassium (3.5-5.1) mmol/L Chloride (98-107) mmol/L Carbon Dioxide (21-32) mmol/L Anion Gap (3-11) BUN (7-18) mg/dl Creatinine (0.6-1.4) mg/dl Est Cr Clr Drug Dosing ml/min Est GFR ( Amer) ml/min Est GFR (Non-Af Amer) ml/min BUN/Creatinine Ratio (10-20) Glucose (70-99) mg/dl POC Glucose 236 H 274 H (70-99) mg/dl Estimat Average Glucose mg/dl Hemoglobin A1c (4.5-5.6) % Lactate (0.4-2.0) mmol/L Calcium (8.5-10.1) mg/dl Magnesium (1.8-2.4) mg/dl Total Bilirubin (0.2-1) mg/dl AST (15-37) U/L ALT (12-78) U/L Alkaline Phosphatase (45-117) U/L Total Creatine Kinase (39-308) U/L CK-MB (CK-2) (0.5-3.6) ng/ml CK/CKMB % Calc (0-3.0) Troponin I (0-0.045) ng/ml C-Reactive Protein (0-0.29) mg/dl NT-Pro-B Natriuret Pep (0-900) pg/ml Total Protein (6.4-8.2) gm/dl Albumin (3.4-5.0) gm/dl Globulin (2.5-4.0) gm/dl Albumin/Globulin Ratio (0.9-2) Beta-Hydroxybutyric Acd (0.2-2.81) mg/dl Procalcitonin (0-0.5) ng/ml Urine Color Urine Appearance (Clear) Urine pH (4.5-7.5) Ur Specific [place] (1.000-1.030) Urine Protein (Negative) Urine Glucose (UA) (Negative) Urine Ketones (Negative) Urine Blood (Negative) Urine Nitrite (Negative) Urine Bilirubin (Negative) Urine Urobilinogen (Negative) Ur Leukocyte Esterase (Negative) Urine WBC (Auto) (0-5) /hpf Urine RBC (Auto) (0-4) /hpf U Hyaline Cast (Auto) (0-5) /lpf U Epithel Cells (Auto) (0-5) /lpf Urine Bacteria (Auto) (Negative) Nasal Screen MRSA (PCR) (Negative) COVID-19 Eval Order SARS-CoV-2 (PCR) (Negative) Hepatitis C Ab Screen 05/07/21 05/07/21 05/07/21 Range/Units 19:59 19:58 18:07 WBC (4.8-10.8) K/uL RBC (4.7-6.1) M/uL Hgb (14.0-18.0) g/dL Hct (42-52) % MCV (80-100) fL MCH (25-34) pg MCHC (32-36) g/dL RDW Std Deviation (36.4-46.3) fL RDW Coeff of Larry (11.5-14.5) % Plt Count (130-400) K/uL MPV (7.4-10.4) fL Immature Gran % (Auto) % Neut % (Auto) % Lymph % (Auto) % [place] % (Auto) % Eos % (Auto) % Baso % (Auto) % Neut # (Auto) (1.4-6.5) K/uL Lymph # (Auto) (1.2-3.4) K/uL [place] # (Auto) (0.11-0.59) K/uL Eos # (Auto) (0-0.5) K/uL Baso # (Auto) (0-0.2) K/uL Immature Gran # (Auto) (0.00-0.02) K/uL PT (9.0-12.0) Seconds INR (0.9-1.1) APTT (21.0-31.0) Seconds PTT Ratio ABG pH 7.29 L (7.35-7.45) ABG pCO2 59 H (35-46) mmHg ABG pO2 77 L (80-95) mmHg ABG HCO3 28 H (19-24) mmol/L ABG O2 Saturation 94.7 (90-95) % ABG Base Excess -0.2 (-9-1.8) mEq/L Paulino Test Pos (Pos) VBG pH 7.28 L (7.36-7.41) VBG pCO2 65 H (38-50) mmHg VBG pO2 43 mmHg VBG HCO3 30 mmol/L VBG O2 Saturation 73.4 % VBG Base Excess 1.3 mEq/L Barometric Pressure 732.8 732.7 mm/Hg Oxygen Given 4 Sodium (136-145) mmol/L Potassium (3.5-5.1) mmol/L Chloride (98-107) mmol/L Carbon Dioxide (21-32) mmol/L Anion Gap (3-11) BUN (7-18) mg/dl Creatinine (0.6-1.4) mg/dl Est Cr Clr Drug Dosing ml/min Est GFR ( Amer) ml/min Est GFR (Non-Af Amer) ml/min BUN/Creatinine Ratio (10-20) Glucose (70-99) mg/dl POC Glucose (70-99) mg/dl Estimat Average Glucose mg/dl Hemoglobin A1c (4.5-5.6) % Lactate (0.4-2.0) mmol/L Calcium (8.5-10.1) mg/dl Magnesium (1.8-2.4) mg/dl Total Bilirubin (0.2-1) mg/dl AST (15-37) U/L ALT (12-78) U/L Alkaline Phosphatase (45-117) U/L Total Creatine Kinase (39-308) U/L CK-MB (CK-2) (0.5-3.6) ng/ml CK/CKMB % Calc (0-3.0) Troponin I 0.110 H* (0-0.045) ng/ml C-Reactive Protein (0-0.29) mg/dl NT-Pro-B Natriuret Pep (0-900) pg/ml Total Protein (6.4-8.2) gm/dl Albumin (3.4-5.0) gm/dl Globulin (2.5-4.0) gm/dl Albumin/Globulin Ratio (0.9-2) Beta-Hydroxybutyric Acd (0.2-2.81) mg/dl Procalcitonin (0-0.5) ng/ml Urine Color Urine Appearance (Clear) Urine pH (4.5-7.5) Ur Specific [place] (1.000-1.030) Urine Protein (Negative) Urine Glucose (UA) (Negative) Urine Ketones (Negative) Urine Blood (Negative) Urine Nitrite (Negative) Urine Bilirubin (Negative) Urine Urobilinogen (Negative) Ur Leukocyte Esterase (Negative) Urine WBC (Auto) (0-5) /hpf Urine RBC (Auto) (0-4) /hpf U Hyaline Cast (Auto) (0-5) /lpf U Epithel Cells (Auto) (0-5) /lpf Urine Bacteria (Auto) (Negative) Nasal Screen MRSA (PCR) (Negative) COVID-19 Eval Order SARS-CoV-2 (PCR) (Negative) Hepatitis C Ab Screen 05/07/21 05/07/21 05/07/21 Range/Units 17:46 17:25 16:36 WBC (4.8-10.8) K/uL RBC (4.7-6.1) M/uL Hgb (14.0-18.0) g/dL Hct (42-52) % MCV (80-100) fL MCH (25-34) pg MCHC (32-36) g/dL RDW Std Deviation (36.4-46.3) fL RDW Coeff of Larry (11.5-14.5) % Plt Count (130-400) K/uL MPV (7.4-10.4) fL Immature Gran % (Auto) % Neut % (Auto) % Lymph % (Auto) % [place] % (Auto) % Eos % (Auto) % Baso % (Auto) % Neut # (Auto) (1.4-6.5) K/uL Lymph # (Auto) (1.2-3.4) K/uL [place] # (Auto) (0.11-0.59) K/uL Eos # (Auto) (0-0.5) K/uL Baso # (Auto) (0-0.2) K/uL Immature Gran # (Auto) (0.00-0.02) K/uL PT (9.0-12.0) Seconds INR (0.9-1.1) APTT (21.0-31.0) Seconds PTT Ratio ABG pH (7.35-7.45) ABG pCO2 (35-46) mmHg ABG pO2 (80-95) mmHg ABG HCO3 (19-24) mmol/L ABG O2 Saturation (90-95) % ABG Base Excess (-9-1.8) mEq/L Paulino Test (Pos) VBG pH (7.36-7.41) VBG pCO2 (38-50) mmHg VBG pO2 mmHg VBG HCO3 mmol/L VBG O2 Saturation % VBG Base Excess mEq/L Barometric Pressure mm/Hg Oxygen Given Sodium (136-145) mmol/L Potassium (3.5-5.1) mmol/L Chloride (98-107) mmol/L Carbon Dioxide (21-32) mmol/L Anion Gap (3-11) BUN (7-18) mg/dl Creatinine (0.6-1.4) mg/dl Est Cr Clr Drug Dosing ml/min Est GFR ( Amer) ml/min Est GFR (Non-Af Amer) ml/min BUN/Creatinine Ratio (10-20) Glucose (70-99) mg/dl POC Glucose 332 H* 384 H* (70-99) mg/dl Estimat Average Glucose mg/dl Hemoglobin A1c (4.5-5.6) % Lactate (0.4-2.0) mmol/L Calcium (8.5-10.1) mg/dl Magnesium (1.8-2.4) mg/dl Total Bilirubin (0.2-1) mg/dl AST (15-37) U/L ALT (12-78) U/L Alkaline Phosphatase (45-117) U/L Total Creatine Kinase (39-308) U/L CK-MB (CK-2) (0.5-3.6) ng/ml CK/CKMB % Calc (0-3.0) Troponin I (0-0.045) ng/ml C-Reactive Protein (0-0.29) mg/dl NT-Pro-B Natriuret Pep (0-900) pg/ml Total Protein (6.4-8.2) gm/dl Albumin (3.4-5.0) gm/dl Globulin (2.5-4.0) gm/dl Albumin/Globulin Ratio (0.9-2) Beta-Hydroxybutyric Acd (0.2-2.81) mg/dl Procalcitonin (0-0.5) ng/ml Urine Color Urine Appearance (Clear) Urine pH (4.5-7.5) Ur Specific [place] (1.000-1.030) Urine Protein (Negative) Urine Glucose (UA) (Negative) Urine Ketones (Negative) Urine Blood (Negative) Urine Nitrite (Negative) Urine Bilirubin (Negative) Urine Urobilinogen (Negative) Ur Leukocyte Esterase (Negative) Urine WBC (Auto) (0-5) /hpf Urine RBC (Auto) (0-4) /hpf U Hyaline Cast (Auto) (0-5) /lpf U Epithel Cells (Auto) (0-5) /lpf Urine Bacteria (Auto) (Negative) Nasal Screen MRSA (PCR) Negative (Negative) COVID-19 Eval Order SARS-CoV-2 (PCR) (Negative) Hepatitis C Ab Screen 05/07/21 05/07/21 05/07/21 Range/Units 15:40 14:05 14:05 WBC (4.8-10.8) K/uL RBC (4.7-6.1) M/uL Hgb (14.0-18.0) g/dL Hct (42-52) % MCV (80-100) fL MCH (25-34) pg MCHC (32-36) g/dL RDW Std Deviation (36.4-46.3) fL RDW Coeff of Larry (11.5-14.5) % Plt Count (130-400) K/uL MPV (7.4-10.4) fL Immature Gran % (Auto) % Neut % (Auto) % Lymph % (Auto) % [place] % (Auto) % Eos % (Auto) % Baso % (Auto) % Neut # (Auto) (1.4-6.5) K/uL Lymph # (Auto) (1.2-3.4) K/uL [place] # (Auto) (0.11-0.59) K/uL Eos # (Auto) (0-0.5) K/uL Baso # (Auto) (0-0.2) K/uL Immature Gran # (Auto) (0.00-0.02) K/uL PT (9.0-12.0) Seconds INR (0.9-1.1) APTT (21.0-31.0) Seconds PTT Ratio ABG pH (7.35-7.45) ABG pCO2 (35-46) mmHg ABG pO2 (80-95) mmHg ABG HCO3 (19-24) mmol/L ABG O2 Saturation (90-95) % ABG Base Excess (-9-1.8) mEq/L Paulino Test (Pos) VBG pH (7.36-7.41) VBG pCO2 (38-50) mmHg VBG pO2 mmHg VBG HCO3 mmol/L VBG O2 Saturation % VBG Base Excess mEq/L Barometric Pressure mm/Hg Oxygen Given Sodium (136-145) mmol/L Potassium (3.5-5.1) mmol/L Chloride (98-107) mmol/L Carbon Dioxide (21-32) mmol/L Anion Gap (3-11) BUN (7-18) mg/dl Creatinine (0.6-1.4) mg/dl Est Cr Clr Drug Dosing ml/min Est GFR ( Amer) ml/min Est GFR (Non-Af Amer) ml/min BUN/Creatinine Ratio (10-20) Glucose (70-99) mg/dl POC Glucose (70-99) mg/dl Estimat Average Glucose mg/dl Hemoglobin A1c (4.5-5.6) % Lactate (0.4-2.0) mmol/L Calcium (8.5-10.1) mg/dl Magnesium (1.8-2.4) mg/dl Total Bilirubin (0.2-1) mg/dl AST (15-37) U/L ALT (12-78) U/L Alkaline Phosphatase (45-117) U/L Total Creatine Kinase (39-308) U/L CK-MB (CK-2) (0.5-3.6) ng/ml CK/CKMB % Calc (0-3.0) Troponin I (0-0.045) ng/ml C-Reactive Protein (0-0.29) mg/dl NT-Pro-B Natriuret Pep (0-900) pg/ml Total Protein (6.4-8.2) gm/dl Albumin (3.4-5.0) gm/dl Globulin (2.5-4.0) gm/dl Albumin/Globulin Ratio (0.9-2) Beta-Hydroxybutyric Acd (0.2-2.81) mg/dl Procalcitonin (0-0.5) ng/ml Urine Color Yellow Urine Appearance Clear (Clear) Urine pH 6.0 (4.5-7.5) Ur Specific [place] > 1.045 H (1.000-1.030) Urine Protein 4+ H (Negative) Urine Glucose (UA) 3+ H (Negative) Urine Ketones Negative (Negative) Urine Blood 2+ H (Negative) Urine Nitrite Negative (Negative) Urine Bilirubin Negative (Negative) Urine Urobilinogen Negative (Negative) Ur Leukocyte Esterase Negative (Negative) Urine WBC (Auto) 1-5 (0-5) /hpf Urine RBC (Auto) 10-30 H (0-4) /hpf U Hyaline Cast (Auto) 1-5 (0-5) /lpf U Epithel Cells (Auto) 20-30 H (0-5) /lpf Urine Bacteria (Auto) Negative (Negative) Nasal Screen MRSA (PCR) (Negative) COVID-19 Eval Order Covid19 at [facility] SARS-CoV-2 (PCR) NEGATIVE (Negative) Hepatitis C Ab Screen 05/07/21 05/07/21 05/07/21 Range/Units 13:43 13:43 13:03 WBC (4.8-10.8) K/uL RBC (4.7-6.1) M/uL Hgb (14.0-18.0) g/dL Hct (42-52) % MCV (80-100) fL MCH (25-34) pg MCHC (32-36) g/dL RDW Std Deviation (36.4-46.3) fL RDW Coeff of Larry (11.5-14.5) % Plt Count (130-400) K/uL MPV (7.4-10.4) fL Immature Gran % (Auto) % Neut % (Auto) % Lymph % (Auto) % [place] % (Auto) % Eos % (Auto) % Baso % (Auto) % Neut # (Auto) (1.4-6.5) K/uL Lymph # (Auto) (1.2-3.4) K/uL [place] # (Auto) (0.11-0.59) K/uL Eos # (Auto) (0-0.5) K/uL Baso # (Auto) (0-0.2) K/uL Immature Gran # (Auto) (0.00-0.02) K/uL PT (9.0-12.0) Seconds INR (0.9-1.1) APTT (21.0-31.0) Seconds PTT Ratio ABG pH (7.35-7.45) ABG pCO2 (35-46) mmHg ABG pO2 (80-95) mmHg ABG HCO3 (19-24) mmol/L ABG O2 Saturation (90-95) % ABG Base Excess (-9-1.8) mEq/L Paulino Test (Pos) VBG pH 7.28 L (7.36-7.41) VBG pCO2 65 H (38-50) mmHg VBG pO2 31 mmHg VBG HCO3 30 mmol/L VBG O2 Saturation < 60.0 % VBG Base Excess 1.2 mEq/L Barometric Pressure 734.4 mm/Hg Oxygen Given Sodium (136-145) mmol/L Potassium (3.5-5.1) mmol/L Chloride (98-107) mmol/L Carbon Dioxide (21-32) mmol/L Anion Gap (3-11) BUN (7-18) mg/dl Creatinine (0.6-1.4) mg/dl Est Cr Clr Drug Dosing ml/min Est GFR ( Amer) ml/min Est GFR (Non-Af Amer) ml/min BUN/Creatinine Ratio (10-20) Glucose (70-99) mg/dl POC Glucose (70-99) mg/dl Estimat Average Glucose mg/dl Hemoglobin A1c (4.5-5.6) % Lactate (0.4-2.0) mmol/L Calcium (8.5-10.1) mg/dl Magnesium (1.8-2.4) mg/dl Total Bilirubin (0.2-1) mg/dl AST (15-37) U/L ALT (12-78) U/L Alkaline Phosphatase (45-117) U/L Total Creatine Kinase (39-308) U/L CK-MB (CK-2) (0.5-3.6) ng/ml CK/CKMB % Calc (0-3.0) Troponin I (0-0.045) ng/ml C-Reactive Protein 1.05 H (0-0.29) mg/dl NT-Pro-B Natriuret Pep 41185 H (0-900) pg/ml Total Protein (6.4-8.2) gm/dl Albumin (3.4-5.0) gm/dl Globulin (2.5-4.0) gm/dl Albumin/Globulin Ratio (0.9-2) Beta-Hydroxybutyric Acd (0.2-2.81) mg/dl Procalcitonin < 0.05 (0-0.5) ng/ml Urine Color Urine Appearance (Clear) Urine pH (4.5-7.5) Ur Specific [place] (1.000-1.030) Urine Protein (Negative) Urine Glucose (UA) (Negative) Urine Ketones (Negative) Urine Blood (Negative) Urine Nitrite (Negative) Urine Bilirubin (Negative) Urine Urobilinogen (Negative) Ur Leukocyte Esterase (Negative) Urine WBC (Auto) (0-5) /hpf Urine RBC (Auto) (0-4) /hpf U Hyaline Cast (Auto) (0-5) /lpf U Epithel Cells (Auto) (0-5) /lpf Urine Bacteria (Auto) (Negative) Nasal Screen MRSA (PCR) (Negative) COVID-19 Eval Order SARS-CoV-2 (PCR) (Negative) Hepatitis C Ab Screen 05/07/21 05/07/21 05/07/21 Range/Units 13:03 13:03 13:03 WBC (4.8-10.8) K/uL RBC (4.7-6.1) M/uL Hgb (14.0-18.0) g/dL Hct (42-52) % MCV (80-100) fL MCH (25-34) pg MCHC (32-36) g/dL RDW Std Deviation (36.4-46.3) fL RDW Coeff of Larry (11.5-14.5) % Plt Count (130-400) K/uL MPV (7.4-10.4) fL Immature Gran % (Auto) % Neut % (Auto) % Lymph % (Auto) % [place] % (Auto) % Eos % (Auto) % Baso % (Auto) % Neut # (Auto) (1.4-6.5) K/uL Lymph # (Auto) (1.2-3.4) K/uL [place] # (Auto) (0.11-0.59) K/uL Eos # (Auto) (0-0.5) K/uL Baso # (Auto) (0-0.2) K/uL Immature Gran # (Auto) (0.00-0.02) K/uL PT 11.0 (9.0-12.0) Seconds INR 1.1 (0.9-1.1) APTT 43.6 H (21.0-31.0) Seconds PTT Ratio 1.7 ABG pH (7.35-7.45) ABG pCO2 (35-46) mmHg ABG pO2 (80-95) mmHg ABG HCO3 (19-24) mmol/L ABG O2 Saturation (90-95) % ABG Base Excess (-9-1.8) mEq/L Paulino Test (Pos) VBG pH (7.36-7.41) VBG pCO2 (38-50) mmHg VBG pO2 mmHg VBG HCO3 mmol/L VBG O2 Saturation % VBG Base Excess mEq/L Barometric Pressure mm/Hg Oxygen Given Sodium 140 (136-145) mmol/L Potassium 4.4 (3.5-5.1) mmol/L Chloride 106 (98-107) mmol/L Carbon Dioxide 29 (21-32) mmol/L Anion Gap 5.0 (3-11) BUN 20 H (7-18) mg/dl Creatinine 1.18 (0.6-1.4) mg/dl Est Cr Clr Drug Dosing 60.8 ml/min Est GFR ( Amer) 70.0 ml/min Est GFR (Non-Af Amer) 60.4 ml/min BUN/Creatinine Ratio 17.3 (10-20) Glucose 378 H* (70-99) mg/dl POC Glucose (70-99) mg/dl Estimat Average Glucose mg/dl Hemoglobin A1c (4.5-5.6) % Lactate 0.5 (0.4-2.0) mmol/L Calcium 8.2 L (8.5-10.1) mg/dl Magnesium 1.7 L (1.8-2.4) mg/dl Total Bilirubin 0.4 (0.2-1) mg/dl AST 17 (15-37) U/L ALT 36 (12-78) U/L Alkaline Phosphatase 131 H (45-117) U/L Total Creatine Kinase 146 (39-308) U/L CK-MB (CK-2) 5.2 H (0.5-3.6) ng/ml CK/CKMB % Calc 3.6 H (0-3.0) Troponin I 0.119 H* (0-0.045) ng/ml C-Reactive Protein (0-0.29) mg/dl NT-Pro-B Natriuret Pep (0-900) pg/ml Total Protein 5.5 L (6.4-8.2) gm/dl Albumin 2.0 L (3.4-5.0) gm/dl Globulin 3.5 (2.5-4.0) gm/dl Albumin/Globulin Ratio 0.6 L (0.9-2) Beta-Hydroxybutyric Acd 2.56 (0.2-2.81) mg/dl Procalcitonin (0-0.5) ng/ml Urine Color Urine Appearance (Clear) Urine pH (4.5-7.5) Ur Specific [place] (1.000-1.030) Urine Protein (Negative) Urine Glucose (UA) (Negative) Urine Ketones (Negative) Urine Blood (Negative) Urine Nitrite (Negative) Urine Bilirubin (Negative) Urine Urobilinogen (Negative) Ur Leukocyte Esterase (Negative) Urine WBC (Auto) (0-5) /hpf Urine RBC (Auto) (0-4) /hpf U Hyaline Cast (Auto) (0-5) /lpf U Epithel Cells (Auto) (0-5) /lpf Urine Bacteria (Auto) (Negative) Nasal Screen MRSA (PCR) (Negative) COVID-19 Eval Order SARS-CoV-2 (PCR) (Negative) Hepatitis C Ab Screen 05/07/21 Range/Units 13:03 WBC 9.57 (4.8-10.8) K/uL RBC 4.68 L (4.7-6.1) M/uL Hgb 14.3 (14.0-18.0) g/dL Hct 43.4 (42-52) % MCV 92.7 (80-100) fL MCH 30.6 (25-34) pg MCHC 32.9 (32-36) g/dL RDW Std Deviation 46.4 H (36.4-46.3) fL RDW Coeff of Larry 13.7 (11.5-14.5) % Plt Count 248 (130-400) K/uL MPV 11.3 H (7.4-10.4) fL Immature Gran % (Auto) 0.1 % Neut % (Auto) 80.4 % Lymph % (Auto) 11.8 % [place] % (Auto) 7.3 % Eos % (Auto) 0.3 % Baso % (Auto) 0.1 % Neut # (Auto) 7.69 H (1.4-6.5) K/uL Lymph # (Auto) 1.13 L (1.2-3.4) K/uL [place] # (Auto) 0.70 H (0.11-0.59) K/uL Eos # (Auto) 0.03 (0-0.5) K/uL Baso # (Auto) 0.01 (0-0.2) K/uL Immature Gran # (Auto) 0.01 (0.00-0.02) K/uL PT (9.0-12.0) Seconds INR (0.9-1.1) APTT (21.0-31.0) Seconds PTT Ratio ABG pH (7.35-7.45) ABG pCO2 (35-46) mmHg ABG pO2 (80-95) mmHg ABG HCO3 (19-24) mmol/L ABG O2 Saturation (90-95) % ABG Base Excess (-9-1.8) mEq/L Paulino Test (Pos) VBG pH (7.36-7.41) VBG pCO2 (38-50) mmHg VBG pO2 mmHg VBG HCO3 mmol/L VBG O2 Saturation % VBG Base Excess mEq/L Barometric Pressure mm/Hg Oxygen Given Sodium (136-145) mmol/L Potassium (3.5-5.1) mmol/L Chloride (98-107) mmol/L Carbon Dioxide (21-32) mmol/L Anion Gap (3-11) BUN (7-18) mg/dl Creatinine (0.6-1.4) mg/dl Est Cr Clr Drug Dosing ml/min Est GFR ( Amer) ml/min Est GFR (Non-Af Amer) ml/min BUN/Creatinine Ratio (10-20) Glucose (70-99) mg/dl POC Glucose (70-99) mg/dl Estimat Average Glucose mg/dl Hemoglobin A1c (4.5-5.6) % Lactate (0.4-2.0) mmol/L Calcium (8.5-10.1) mg/dl Magnesium (1.8-2.4) mg/dl Total Bilirubin (0.2-1) mg/dl AST (15-37) U/L ALT (12-78) U/L Alkaline Phosphatase (45-117) U/L Total Creatine Kinase (39-308) U/L CK-MB (CK-2) (0.5-3.6) ng/ml CK/CKMB % Calc (0-3.0) Troponin I (0-0.045) ng/ml C-Reactive Protein (0-0.29) mg/dl NT-Pro-B Natriuret Pep (0-900) pg/ml Total Protein (6.4-8.2) gm/dl Albumin (3.4-5.0) gm/dl Globulin (2.5-4.0) gm/dl Albumin/Globulin Ratio (0.9-2) Beta-Hydroxybutyric Acd (0.2-2.81) mg/dl Procalcitonin (0-0.5) ng/ml Urine Color Urine Appearance (Clear) Urine pH (4.5-7.5) Ur Specific [place] (1.000-1.030) Urine Protein (Negative) Urine Glucose (UA) (Negative) Urine Ketones (Negative) Urine Blood (Negative) Urine Nitrite (Negative) Urine Bilirubin (Negative) Urine Urobilinogen (Negative) Ur Leukocyte Esterase (Negative) Urine WBC (Auto) (0-5) /hpf Urine RBC (Auto) (0-4) /hpf U Hyaline Cast (Auto) (0-5) /lpf U Epithel Cells (Auto) (0-5) /lpf Urine Bacteria (Auto) (Negative) Nasal Screen MRSA (PCR) (Negative) COVID-19 Eval Order SARS-CoV-2 (PCR) (Negative) Hepatitis C Ab Screen Diagnostic Findings EKG 05/07/2021 Sinus tachycardia with PACs, possible left atrial enlargement, right bundle branch block, cannot rule out anteroseptal infarct, 107 bpm EKG 07/12/2020 Per [facility] records Normal sinus rhythm with a right bundle branch block, left anterior fascicular block, bifascicular block, 80 bpm Echocardiogram 05/07/2021 Moderate concentric LVH with a severely reduced LV systolic function of 15 to 20% Severe global hypokinesis with abnormal septal wall motion consistent with RV pressure/volume overload Grade 2 diastolic dysfunction Right ventricular cavity size is normal with reduced RV systolic function Aortic valve sclerosis without valvular stenosis Moderate mitral annular calcification, no MR IVC mildly dilated with estimated RA pressure of 8 mmhg (1) Pulmonary embolism Acute cor pulmonale presence: unspecified Chronicity: unspecified Pulmonary embolism type: unspecified Qualified Code(s): I26.99 - Other pulmonary embolism without acute cor pulmonale (2) Multiple myeloma Multiple myeloma remission status: unspecified Qualified Code(s): C90.00 - Multiple myeloma not having achieved remission
[2021-05-08] MEDS ORDERED: POTASSIUM CHLORIDE CRTAB 20 MEQ TABCR PO SCH (09:00)
--- NOTE | 2021-05-08 12:02 | Pharmacy Report ---
Pharmacy Glycemic Short Note 2 - Date of Service May 08, 2021 - Glycemic Short BSG Results (Last 24 hours): 05/07/21 05/07/21 05/07/21 13:03 16:36 17:46 Glucose 378 H* POC Glucose 384 H* 332 H* 05/07/21 05/07/21 05/08/21 20:38 23:15 03:57 Glucose POC Glucose 274 H 236 H 171 H 05/08/21 05/08/21 05/08/21 03:58 07:09 11:05 Glucose 188 H POC Glucose 165 H 200 H OUTPATIENT ANTIDIABETIC REGIMEN: * Novolog 70/30, 30 units BID w/ meals * A1c = 11.9% 05/08/21 ASSESSMENT: * Type 2 diabetic admitted for resp failure secondary to ADHF, acute PE and possible pneumonia * Patient is poorly controlled per recent A1c despite use of 70/30 insulin * Will convert to basal/bolus SQ regimen consisting of Lantus + Novolog for this admission due to greater flexibility with dose titration and less risk of hypoglycemia with changing PO intake while hospitalized * Basal/bolus regimen will be based upon both out-pt doses and "moderate-severe" stress level PLAN FOR INPATIENT GLYCEMIC CONTROL: * Hold outpatient oral diabetes medications (70/30 insulin) * Basal insulin * Lantus 16 units SQ BID * Bolus insulin * NovoLog per scale ACHS or Q6hrs while NPO * Goal Range: Low 110 mg/dL - High 140 mg/dL * Correction Factor: 18 mg/dL/unit * Nutritional / Prandial insulin per carb ratio of 1 unit per 6 grams CHO consumed PLAN FOR DISCHARGE: * Given A1c 11.9%, patient's insulin regimen requires reassessment on discharge. Will follow BSG trend and insulin requirements this admission to help determine insulin needs on discharge.
--- NOTE | 2021-05-08 14:17 | Pulmonology Progress Note ---
Date of Service May 08, 2021 Assessment & Plan (1) Abnormal CT scan of lung: (2) Pulmonary embolism: Acute cor pulmonale presence: unspecified Chronicity: unspecified Pulmonary embolism type: unspecified Qualified Code(s): I26.99 - Other pulmonary embolism without acute cor pulmonale (3) Dyspnea: (4) CHF (congestive heart failure): Heart failure chronicity: unspecified Heart failure type: unspecified Qualified Code(s): I50.9 - Heart failure, unspecified Plan: Impression: 76-year-old male with complicated medical history including metastatic multiple myeloma, COPD, and peripheral vascular disease presents with shortness of breath. He has a reduced ejection fraction of 15 to 20% with grade 2 diastolic dysfunction and RV pressure overload. Small subsegmental PE identified. Recommendations: 1. Acute PE: While this may be contributing, I think the small volume of clot and questionable chronicity (appears incorporated into the vessel wall) may make this less of an acute issue. Okay to transition off of IV heparin to oral anticoagulants. If Coumadin is selected, the patient will require 48 hours of overlap before heparin can be discontinued. If he transitions to a DOAC, no overlap is required. Would recommend at least 6 months of anticoagulation and the patient can follow-up with his oncology hematology service through [facility]. Could make a case for indefinite anticoagulation given his multiple myeloma and active malignancy. 2. Heart failure: Per cardiology. Still appears volume up. I doubt the PE requires higher filling pressures so I think diuresis can be undertaken ag gressively. 3. Abnormal CT scan: Patient's database is incomplete. Unclear what prior imaging has had performed. Getting records from the [facility] and [facility] should be undertaken. Correlation with prior imaging may be beneficial. 4. COPD: Continue Anoro: Consider outpatient pulmonary function tests. 5. Questionable pneumonia: Difficult to interpret the patient CT scan. With his normal white count and lack of infectious symptoms I think antibiotics can be discontinued at this time. 6. Hypercarbic/hypoxemic respiratory failure: Suspect related to COPD. He has not tolerated BiPAP and review of his oncology notes indicate an issue with medical compliance. He is not any use BiPAP here. Could consider outpatient PFTs and sleep study however again I am suspicious that the patient may not be willing to follow-up. He likely will require supplemental oxygen at discharge and two-step evaluation is recommended. 7. Tobacco abuse: The patient states that he has no intention of stopping smoking. We discussed risks of smoking while on supplemental oxygen. He acknowledges the risks and verbally states that he will not be using his oxygen while he is actively smoking. Patient has improved significantly regarding his shortness of breath and oxygen requirement. Manera will sign off at this point time. Please call us with additional clinical questions or should the patient's clinical status change Admission and Anticipated Discharge Date Admission Date: May 07, 2021 Subjective Patient seen and examined. He sitting up in a chair. He is on supplemental oxygen by facemask. He reportedly did not tolerate positive airway pressure last night. He states he is feeling much better. He notes marked improvement in the swelling in his arms and legs. He thinks his breathing is easier. He feels better on oxygen. Review of Systems Review of Systems: All systems reviewed & are unremarkable except as noted in HPI & below Physical Exam Constitutional: WD/WN, vitals as above + obese; no acute distress Neck: trachea midline, no thyromegaly Respiratory: normal respiratory effort, lungs clear to auscultation no respiratory distress Auscultation: + rales and + wheezes Cardiovascular: RRR, no murmur, no edema Rate/Rhythm: regular rate and + tachycardic Heart Sounds: normal S1 and normal S2; no murmur Extremities: + edema Gastrointestinal (Abdomen): normal bowel sounds, soft, nontender, no hepatosplenomegaly Musculoskeletal: Extremities: extremities normal to inspection Skin: no rashes, warm and dry Lymphatic: no cervical lymphadenopathy Results & Data Results & Data ([facility]) Vital Signs (Past 12 Hours) Vital Signs Temp Pulse Pulse Resp BP Pulse Ox 05/08/21 07:51 84 05/08/21 07:29 36.4 C L 85 25 H 131/69 100 05/08/21 04:17 36.5 C 86 15 121/70 99 05/08/21 03:19 36.8 C 94 H 19 118/70 98 Laboratory Results 05/08/21 03:58 05/08/21 03:58 Diagnostic Findings Echo reviewed: EF 15 to 20% with severe global hypokinesis and RV pressure o verload. Grade 2 diastolic dysfunction. Aortic sclerosis without stenosis. No significant mitral valvular disease. IVC dilated with a right atrial pressure of 8. PG Care Time/CCT Total # of Minutes Spent Total Time Spent with Patient: Total time spent is greater than 50% in coordination of care (as documented) at patient's floor/unit and/or counseling patient: Coding Level of Care Code 40823 Subseq Hosp Care Lvl [address] scan of lung R91.8 Pulmonary embolism I26.99 Acute cor pulmonale presence: unspecified Chronicity: unspecified Pulmonary embolism type: unspecified Dyspnea R06.00 CHF (congestive heart failure) I50.9 Heart failure chronicity: unspecified Heart failure type: unspecified Time Spent (min) 35
[2021-05-08] MEDS: FUROSEMIDE 40 MG in SYRINGE 0 ML IV SCH (17:05)
--- NOTE | 2021-05-08 18:58 | Hospitalist Progress Note ---
Date of Service May 08, 2021 Assessment & Plan (1) Acute respiratory failure with hypoxia and hypercapnia: Plan: This is a 76yo M with a PMH of HTN, DM II, COPD, PAD, ongoing tobacco use x 60 years, peripheral neuropathy, Multiple Myeloma on immunotherapy, medication non- compliance who presents with progressive SOB over the past few months. Multifactorial mostly related to PE versus CHF versus pneumonia Hypoxic at 86% on room air, improved to 93% with bipap trial, now 92% on 6L oxymask CTA chest showed right lower lobe pulmonary embolus. There are small pleural effusions. The right pleural effusion is partially loculated.There is dense consolidation at both lung bases, left greater than right. Mild patchy opacities are seen throughout the left upper lung. ABG showed pH 7.29, PCO2 55 and PO2 77 Was placed on BiPAP but patient was able to tolerated Afebrile with normal wbc and procal Currently on Unasyn IV Pulmonary on board Doubt about pneumonia, will discontinue IV antibiotic Consider to wean off oxygen supplement continue IV diuresis Consider two-step on discharge Continue monitor closely (2) Pulmonary embolism: Plan: Right lower lobe PE on Chest CTA Currently on IV heparin drip Echo shows severe global hypokinesis with ejection fraction 15 to 20% Will discuss with oncology to transition to oral anticoagulant Might need 6 months of oral anticoagulant anticoagulation, but due to history of multiple myeloma oncology might consider a long-term anticoagulant (3) Volume overload: Plan: No formal CHF diagnosis in [facility] records requested but clinically appears to have decompensated CHF Prescribed 80mg PO Lasix daily for BLE swelling, per [facility] records TTE performed while patient in ED showed severe global hypokinesis with ejection fraction 15 to 20% Pro-BNP 24,198, edema noted in BLE extremities up to groin, upper extremity as well continue 40mg IV BID, Continue monitor I/O cardiology on board (4) Multiple myeloma: Plan: Receives cancer care at [facility] in [place] for IgG kappa multiple myeloma. 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 as per pharmacy management Continue monitor blood sugar closely DVT Ppx: IV heparin Code status: FULL PCP: [facility] willie Dispo: Plan to discharge once medically stable Admission and Anticipated Discharge Date Admission Date: May 07, 2021 Subjective Patient was seen and examined for follow-up of shortness of breath Lying in bed with no acute respiratory distress Patient said his breathing feels much better compared to when he came Currently on 2 L oxygen, patient said he felt much better using the oxygen mask over the nasal cannula We will discuss case with his hematology/oncology for final anticoagulant therapy on discharge Currently denies any chest pain, palpitation, dizziness, shortness of breath. Physical Exam Physical Exam: General- No acute distress Head- atraumatic Eyes- PERRL, EOMI, ENT- oropharynx clear Neck- supple, no JVD Lungs- +diminished BS Heart- regular rhythm; no murmur Abdomen- normal bowel sounds, soft, nontender Extremities- no calf tenderness, +edema Neuro- alert, oriented x 3; PERRL, EOMI; no facial palsy; no dysarthria Skin- warm & dry Results & Data Results & Data ([facility]) Vital Signs (Past 12 Hours) Vital Signs Temp Pulse Pulse Resp BP Pulse Ox 05/08/21 16:00 85 05/08/21 14:57 36.7 C 97 H 21 131/64 99 05/08/21 07:51 84 05/08/21 07:29 36.4 C L 85 25 H 131/69 100 (1) Pulmonary embolism Acute cor pulmonale presence: unspecified Chronicity: unspecified Pulmonary embolism type: unspecified Qualified Code(s): I26.99 - Other pulmonary embolism without acute cor pulmonale (2) Multiple myeloma Multiple myeloma remission status: unspecified Qualified Code(s): C90.00 - Multiple myeloma not having achieved remission
[2021-05-08] MEDS: TAMSULOSIN HCL 0.4 MG CAP PO SCH (21:07)
[2021-05-09] MEDS: AMPICILLIN/SULBACTAM SOD 3,000 MG in 0.9 % SODIUM CHLORIDE 100 ML IV SCH ×4 (00:02→17:39)
[2021-05-09] MEDS: HEPARIN SODIUM/DEXTROSE 25,000 UNITS/500 ML BAG IV SCH (00:34)
[2021-05-09 06:00] LABS: Hematocrit (blood only) 39.8 % (42-52); Hemoglobin 12.9 g/dL (14.0-18.0); Mean Corpuscular Hemoglobin 29.8 pg (25-34); Mean Corpuscular Hgb Conc 32.4 g/dL (32-36); Mean Corpuscular Volume 91.9 fL (80-100); Mean Platelet Volume 11.3 fL (7.4-10.4); Platelet Count 208 K/uL (130-400); RDW Coefficient of Variation 13.7 % (11.5-14.5); RDW Standard Deviation 45.8 fL (36.4-46.3); Red Blood Count 4.33 M/uL (4.7-6.1)
[2021-05-09 06:17] LABS: Partial Thromboplastin Ratio 2.6
[2021-05-09 06:27] LABS: BUN Creatinine Ratio 18.9 (10-20); Calcium 7.5 mg/dl (8.5-10.1); Creatinine Clr Calc Pharmacy 56.6 ml/min; Est GFR (African American) 64.1 ml/min; Est GFR (Non-African American) 55.3 ml/min
[2021-05-09 07:20] LABS: Partial Thromboplastin Time 68.9 Seconds (21.0-31.0)
--- NOTE | 2021-05-09 07:25 | Cardiology Progress Note ---
Date of Service May 09, 2021 Assessment & Plan (1) Acute on chronic systolic CHF (congestive heart failure): Plan: Newly diagnosed HFrEF with significant biventricular failure, RV strain noted s/p PE. In adjunct, Possible Takotsubo cardiomyopathy due to increased stressors specifically over the last 2 months. Pulmonary did not feel that the PE required higher filling pressures and suggested aggressive diuresis. Continue diuresis. 1. Recommending optimization of his medications to goal-directed medical therapy to improve LVEF. Continue losartan 100 mg daily Continue spironolactone 12.5 mg daily. Will hold potassium supplementation at this time, reassess upon repeat BMP. Trend BMP over hospital course. Start Evidence based beta bhavya, metoprolol succinate 12.5 mg daily- will likely uptitrate prior to discharge. 2. Recommend continued diuresis with IV Lasix 40 mg twice daily. Trend and replete Potassium and mag as necessary. 3. Can consider outpatient nuclear stress test following discharge. (2) Pulmonary embolism: Plan: Per pulmonary, "small volume of clot and questionable chronicity (appears incorporated into the vessel wall) may make this less of an acute issue". On IV heparin-we will defer to hospitalist team for hematology for anticoagulation management. Troponin slightly elevated 0.110, 0.133 likely in the setting of pulmonary embolism. Can consider outpatient nuclear stress test following discharge. (3) Acute respiratory failure with hypoxia and hypercapnia: Plan: Upon presentation to the hospital patient was hypoxic, 86% on room air O2 now stable on room air, required Oxymask over night. Underlying COPD. Continue tobacco user. Patient is currently being treated for possible pneumonia. (4) HTN (hypertension): Plan: Controlled. Plan as stated above (5) DM type 2, uncontrolled, with neuropathy: Plan: Uncontrolled. A1c 11.9. Will defer to hospitalist team for diabetic management. (6) Multiple myeloma: Plan: Receives cancer care at [facility] in [place] for IgG kappa multiple myeloma. Regimen includes monthly daratumumab (7) PAD (peripheral artery disease): Plan: History of stenting in his left lower extremity. Normally maintained on aspirin and Plavix. Plavix is currently on hold, awaiting outpatient records. Continue aspirin at this time. Admission and Anticipated Discharge Date Admission Date: May 07, 2021 Supervising Physician Co-Signing Physician Notes Patient seen and examined with Sulema Uche, PASTE WORKER. Agree with findings and assessment as above. Patient with significant biventricular failure, RV strain noted status post PE. Has been tolerating diuresis well. We will continue with twice daily Lasix as pressure tolerates. Given reduced LV systolic function his calcium channel bhavya will be discontinued and replaced with spironolactone. Subjective Resting supine in bed. No acute distress. No complaints of chest pain or shortness of breath. Notes that he did get mildly dyspneic this morning due to anxiety and was treated with Ativan which significantly improved his symptoms. No dyspnea when walking to and from the bathroom. No palpitations. Still endorses some lower extremity edema. telemetry monitor reviewed: SR 80-90s noted on monitor Patient is +1.6 L, weight 96.8 kg, unchanged from yesterday Past medical history: -COPD- current smoker, at least 1ppd x60 years -Multiple myeloma, receives care at [facility] in [place] for IgG kappa multiple myeloma. Regimen includes monthly daratumumab -Peripheral arterial disease, normally maintained on aspirin and Plavix-unknown specifics, questionable stent to left lower extremity -Hypertension -Diabetes type 2, uncontrolled with neuropathy -History of BHARTI -Known medication noncompliance with antihypertensives, Lasix, diabetic medications, aspirin, and Plavix Review of Systems Review of Systems: All systems reviewed & are unremarkable except as noted in HPI & below Physical Exam Physical Exam: General: No acute distress. A+Ox3. HEENT: Normocephalic. Atraumatic. Conjunctiva and sclera clear. NECK: No carotid bruits. No JVD. Carotid upstrokes are brisk. Heart: Diminished heart sound, no murmur appreciated. Lungs: Diminished lung sounds bilaterally, +crackles in bases Abdomen: Normal bowel sounds. Soft. Nontender. No masses or organomegaly. No abdominal bruits. Extremities: +1 left lower extremity pitting edema, +2 right lower extremity pitting edema, bilateral upper extremity nonpitting edema. No clubbing or cyanosis. Pulses: radial=2/4, posterior tibial=2/4, dorsalis pedis = 2/4. NEURO: No focal deficits. PSYCH: Normal. Results & Data ([facility]) Vital Signs (Past 12 Hours) Vital Signs Temp Pulse Pulse Resp BP Pulse Ox 05/09/21 04:18 36.7 C 81 20 130/65 90 05/08/21 23:59 99 H 05/08/21 23:35 36.4 C L 90 21 134/76 95 05/08/21 19:39 36.6 C 90 20 109/79 99 Laboratory Results 05/09/21 05/09/21 05/09/21 Range/Units 07:04 05:25 05:25 WBC 8.70 (4.8-10.8) K/uL RBC 4.33 L (4.7-6.1) M/uL Hgb 12.9 L (14.0-18.0) g/dL Hct 39.8 L (42-52) % MCV 91.9 (80-100) fL MCH 29.8 (25-34) pg MCHC 32.4 (32-36) g/dL RDW Std Deviation 45.8 (36.4-46.3) fL RDW Coeff of Larry 13.7 (11.5-14.5) % Plt Count 208 (130-400) K/uL MPV 11.3 H (7.4-10.4) fL APTT (21.0-31.0) Seconds PTT Ratio Sodium 139 (136-145) mmol/L Potassium 4.0 (3.5-5.1) mmol/L Chloride 106 (98-107) mmol/L Carbon Dioxide 31 (21-32) mmol/L Anion Gap 2.0 L (3-11) BUN 24 H (7-18) mg/dl Creatinine 1.27 (0.6-1.4) mg/dl Est Cr Clr Drug Dosing 56.6 ml/min Est GFR ( Amer) 64.1 ml/min Est GFR (Non-Af Amer) 55.3 ml/min BUN/Creatinine Ratio 18.9 (10-20) Glucose 123 H (70-99) mg/dl POC Glucose 122 H (70-99) mg/dl Calcium 7.5 L (8.5-10.1) mg/dl Hepatitis C Ab Screen (Neg) 05/09/21 05/08/21 05/08/21 Range/Units 05:25 20:30 16:12 WBC (4.8-10.8) K/uL RBC (4.7-6.1) M/uL Hgb (14.0-18.0) g/dL Hct (42-52) % MCV (80-100) fL MCH (25-34) pg MCHC (32-36) g/dL RDW Std Deviation (36.4-46.3) fL RDW Coeff of Larry (11.5-14.5) % Plt Count (130-400) K/uL MPV (7.4-10.4) fL APTT 68.9 H* (21.0-31.0) Seconds PTT Ratio 2.6 Sodium (136-145) mmol/L Potassium (3.5-5.1) mmol/L Chloride (98-107) mmol/L Carbon Dioxide (21-32) mmol/L Anion Gap (3-11) BUN (7-18) mg/dl Creatinine (0.6-1.4) mg/dl Est Cr Clr Drug Dosing ml/min Est GFR ( Amer) ml/min Est GFR (Non-Af Amer) ml/min BUN/Creatinine Ratio (10-20) Glucose (70-99) mg/dl POC Glucose 121 H 80 (70-99) mg/dl Calcium (8.5-10.1) mg/dl Hepatitis C Ab Screen (Neg) 05/08/21 05/08/21 Range/Units 11:05 03:58 WBC (4.8-10.8) K/uL RBC (4.7-6.1) M/uL Hgb (14.0-18.0) g/dL Hct (42-52) % MCV (80-100) fL MCH (25-34) pg MCHC (32-36) g/dL RDW Std Deviation (36.4-46.3) fL RDW Coeff of Larry (11.5-14.5) % Plt Count (130-400) K/uL MPV (7.4-10.4) fL APTT (21.0-31.0) Seconds PTT Ratio Sodium (136-145) mmol/L Potassium (3.5-5.1) mmol/L Chloride (98-107) mmol/L Carbon Dioxide (21-32) mmol/L Anion Gap (3-11) BUN (7-18) mg/dl Creatinine (0.6-1.4) mg/dl Est Cr Clr Drug Dosing ml/min Est GFR ( Amer) ml/min Est GFR (Non-Af Amer) ml/min BUN/Creatinine Ratio (10-20) Glucose (70-99) mg/dl POC Glucose 200 H (70-99) mg/dl Calcium (8.5-10.1) mg/dl Hepatitis C Ab Screen Neg (Neg) (1) Pulmonary embolism Acute cor pulmonale presence: unspecified Chronicity: unspecified Pulmonary embolism type: unspecified Qualified Code(s): I26.99 - Other pulmonary embolism without acute cor pulmonale (2) Multiple myeloma Multiple myeloma remission status: unspecified Qualified Code(s): C90.00 - Multiple myeloma not having achieved remission
[2021-05-09] MEDS ORDERED: LORazepam 0.5 MG TAB PO STA (07:42)
[2021-05-09] MEDS: ATORVASTATIN 40 MG TAB PO SCH (08:35)
[2021-05-09] MEDS: ASPIRIN 81 MG ECTAB PO SCH (08:35)
[2021-05-09] MEDS: CYANOCOBALAMIN 500 MCG TABLET (VITAMIN B-12) PO SCH (08:35)
[2021-05-09] MEDS: FUROSEMIDE 40 MG in SYRINGE 0 ML IV SCH ×2 (08:35→17:39)
[2021-05-09] MEDS: LOSARTAN POTASSIUM 50 MG TAB PO SCH (08:36)
[2021-05-09] MEDS: UMECLIDINIUM/VILANTEROL 62.5/25MCG 7 PUFFS/INHALER INH SCH (08:36)
[2021-05-09] MEDS: SPIRONOLACTONE 12.5 MG TAB PO SCH (08:36)
[2021-05-09] MEDS: INSULIN ASPART 100 UNITS/ML 3 ML PEN SC SCH ×4 (08:41→21:13)
[2021-05-09] MEDS ORDERED: INSULIN GLARGINE SOLOSTAR 100 UNITS/ML 3 ML PEN SC SCH (09:00)
--- NOTE | 2021-05-09 10:25 | Pharmacy Report ---
Pharmacy Glycemic Short Note 2 - Date of Service May 09, 2021 - Glycemic Short BSG Results (Last 24 hours): 05/08/21 05/08/21 05/08/21 11:05 16:12 20:30 Glucose POC Glucose 200 H 80 121 H 05/09/21 05/09/21 05:25 07:04 Glucose 123 H POC Glucose 122 H OUTPATIENT ANTIDIABETIC REGIMEN: * Novolog 70/30, 30 units BID w/ meals * A1c = 11.9% 05/08/21 ASSESSMENT: 05/09 * BSGs mostly well controlled over last 24 hrs * Fasting BSG 122 this AM w/ 32 units basal on board. Will titrate dose down 10% as we have not yet reached steady-state w/ current Lantus dose * Post-prandial BSGs did fall quickly after lunch yesterday, dipping below 100 w/ dinner check. Will lessen Novolog doses slightly 05/08 * Type 2 diabetic admitted for resp failure secondary to ADHF, acute PE and possible pneumonia * Patient is poorly controlled per recent A1c despite use of 70/30 insulin * Will convert to basal/bolus SQ regimen consisting of Lantus + Novolog for this admission due to greater flexibility with dose titration and less risk of hypoglycemia with changing PO intake while hospitalized * Basal/bolus regimen will be based upon both out-pt doses and "moderate-severe" stress level PLAN FOR INPATIENT GLYCEMIC CONTROL: * Hold outpatient oral diabetes medications (70/30 insulin) * Basal insulin - decrease * Lantus 14 units SQ BID * Bolus insulin - decrease * NovoLog per scale ACHS or Q6hrs while NPO * Goal Range: Low 110 mg/dL - High 140 mg/dL * Correction Factor: 20 mg/dL/unit * Nutritional / Prandial insulin per carb ratio of 1 unit per 7 grams CHO consumed PLAN FOR DISCHARGE: * Given A1c 11.9%, patient's insulin regimen requires reassessment on discharge. Will follow BSG trend and insulin requirements this admission to help determine insulin needs on discharge.
[2021-05-09] MEDS: METOPROLOL SUCC 25MG EXT REL TAB PO SCH (12:01)
[2021-05-09 14:28] LABS: Partial Thromboplastin Ratio 2.2
[2021-05-09 14:43] LABS: Partial Thromboplastin Time 57.9 Seconds (21.0-31.0)
--- NOTE | 2021-05-09 15:41 | Hospitalist Progress Note ---
Date of Service May 09, 2021 Assessment & Plan (1) Acute respiratory failure with hypoxia and hypercapnia: Plan: This is a 76yo M with a PMH of HTN, DM II, COPD, PAD, ongoing tobacco use x 60 years, peripheral neuropathy, Multiple Myeloma on immunotherapy, medication non- compliance who presents with progressive SOB over the past few months. Multifactorial mostly related to PE versus CHF versus pneumonia Hypoxic at 86% on room air, improved to 93% with bipap trial, now 92% on 6L oxymask CTA chest showed right lower lobe pulmonary embolus. There are small pleural effusions. The right pleural effusion is partially loculated.There is dense consolidation at both lung bases, left greater than right. Mild patchy opacities are seen throughout the left upper lung. ABG showed pH 7.29, PCO2 55 and PO2 77 Was placed on BiPAP but patient was able to tolerated Afebrile with normal wbc and procal Currently on Unasyn IV Pulmonary on board Doubt about pneumonia, will discontinue IV antibiotic Consider to wean off oxygen supplement continue IV diuresis Consider two-step on discharge Continue monitor closely (2) Pulmonary embolism: Plan: Right lower lobe PE on Chest CTA Currently on IV heparin drip Echo shows severe global hypokinesis with ejection fraction 15 to 20% Case discussed with his oncology who is his primary oncologist and as well as Dr. Montoya about anticoagulated on discharge. Both recommended to to transition to DOAC such as Eliquis Might need 6 months of oral anticoagulant anticoagulation, but due to history of multiple myeloma oncology might consider a long-term anticoagulant (3) Volume overload: Plan: No formal CHF diagnosis in [facility] records requested but clinically appears to have decompensated CHF Prescribed 80mg PO Lasix daily for BLE swelling, per [facility] records TTE performed while patient in ED showed severe global hypokinesis with ejection fraction 15 to 20% Pro-BNP 24,198, edema noted in BLE extremities up to groin, upper extremity as well continue 40mg IV BID Monitor BMP closely while on IV Lasix Continue monitor I/O cardiology on board (4) Multiple myeloma: Plan: Receives cancer care at [facility] in [place] for IgG kappa multiple myeloma. Regimen includes monthly daratumumab (5) PAD (peripheral artery disease): Plan: Supposed to be on aspirin and plavix Will continue aspirin Awaiting OP records to see if plavix still indicated (6) HTN (hypertension): Plan: Amlodipine discontinue Spironolactone 12.5 mg added Continue losartan 100 mg daily (7) DM type 2, uncontrolled, with neuropathy: Plan: Most recent hemoglobin A1c is 11.9 on 05/08/2021 Pharmacy on board for glycemic management patient educator on board on insulin as per pharmacy management Continue monitor blood sugar closely DVT Ppx: We will transition IV heparin to p.o. Eliquis Code status: FULL PCP: [place] [facility] Dispo: Plan to discharge once medically stable Admission and Anticipated Discharge Date Admission Date: May 07, 2021 Subjective Patient was seen and examined for follow-up of shortness of breath Lying in bed with no distress with friend at bedside Patient said that he is feeling much better today He said the swelling improved significantly today Denies any chest pain, palpitation, dizziness, and fever. Physical Exam Physical Exam: General- No acute distress Head- atraumatic Eyes- PERRL, EOMI, ENT- oropharynx clear Neck- supple, no JVD Lungs- +diminished BS Heart- regular rhythm; no murmur Abdomen- normal bowel sounds, soft, nontender Extremities- no calf tenderness, +edema Neuro- alert, oriented x 3; PERRL, EOMI; no facial palsy; no dysarthria Skin- warm & dry Results & Data Results & Data ([facility]) Vital Signs (Past 12 Hours) Vital Signs Temp Pulse Pulse Resp BP Pulse Ox 05/09/21 14:53 36.4 C L 91 H 25 H 135/68 97 05/09/21 11:36 36.6 C 93 H 26 H 132/72 100 05/09/21 08:00 90 05/09/21 07:54 36.4 C L 93 H 16 143/74 H 98 05/09/21 04:18 36.7 C 81 20 130/65 90 (1) Pulmonary embolism Acute cor pulmonale presence: unspecified Chronicity: unspecified Pulmonary embolism type: unspecified Qualified Code(s): I26.99 - Other pulmonary embolism without acute cor pulmonale (2) Multiple myeloma Multiple myeloma remission status: unspecified Qualified Code(s): C90.00 - Multiple myeloma not having achieved remission
[2021-05-09] MEDS ORDERED: STOP HEPARIN ORDER ONE (21:00)
[2021-05-09] MEDS: APIXABAN 5 MG TABLET PO SCH (21:13)
[2021-05-09] MEDS: TAMSULOSIN HCL 0.4 MG CAP PO SCH (21:14)
[2021-05-10] MEDS ORDERED: ACETAMINOPHEN 325 MG TAB PO PRN (00:34)
[2021-05-10] MEDS ORDERED: traMADol HCL 50 MG TABLET PO PRN (00:34)
[2021-05-10] MEDS: AMPICILLIN/SULBACTAM SOD 3,000 MG in 0.9 % SODIUM CHLORIDE 100 ML IV SCH ×2 (05:50)
[2021-05-10 06:49] LABS: BUN Creatinine Ratio 19.5 (10-20); Calcium 7.6 mg/dl (8.5-10.1); Creatinine Clr Calc Pharmacy 61.4 ml/min; Est GFR (Non-African American) 60.4 ml/min; Magnesium 1.9 mg/dl (1.8-2.4); Potassium 4.4 mmol/L (3.5-5.1)
--- NOTE | 2021-05-10 07:22 | Cardiology Progress Note ---
Date of Service May 10, 2021 Assessment & Plan (1) Acute on chronic systolic CHF (congestive heart failure): Plan: Newly diagnosed HFrEF with significant biventricular failure, RV strain noted s/p PE. In adjunct, Possible Takotsubo cardiomyopathy due to increased stressors specifically over the last 2 months. Pulmonary did not feel that the PE required higher filling pressures and suggested aggressive diuresis. Remains hypervolemic on exam, Continue diuresis. 1. Recommending optimization of his medications to goal-directed medical therapy to improve LVEF. Continue losartan 100 mg daily Continue spironolactone 12.5 mg daily. Continue to hold potassium supplementation at this time. Trend BMP over hospital course. Continue Evidence based beta bhavya, increase metoprolol succinate to 25 mg daily, will likely uptitrate prior to dc 2. Increase Lasix to 60 mg IV twice daily. Trend and replete Potassium and mag as necessary. 3. Can consider outpatient nuclear stress test following discharge. (2) Pulmonary embolism: Plan: Per pulmonary, "small volume of clot and questionable chronicity (appears incorporated into the vessel wall) may make this less of an acute issue". On IV heparin-we will defer to hospitalist team for hematology for anticoagulation management. Troponin slightly elevated 0.110, 0.133 likely in the setting of pulmonary embolism. Can consider outpatient nuclear stress test following discharge. 1. Plans to start Eliquis. Ok to continue ASA 81 mg daily at this time. Will hold Plavix. (3) Acute respiratory failure with hypoxia and hypercapnia: Plan: Upon presentation to the hospital patient was hypoxic, 86% on room air. O2 now stable on 6L NC. Underlying COPD. Continue tobacco user. IV abx dc'd per hospitalist team, PNA unlikely. (4) HTN (hypertension): Plan: Controlled. Plan as stated above (5) DM type 2, uncontrolled, with neuropathy: Plan: Uncontrolled. A1c 11.9. Will defer to hospitalist team for diabetic management. (6) Multiple myeloma: Plan: Receives cancer care at [facility] in [place] for IgG kappa multiple myeloma. Regimen includes monthly daratumumab (7) PAD (peripheral artery disease): Plan: History of stenting in his left lower extremity. Normally maintained on aspirin and Plavix. Plavix is currently on hold, awaiting outpatient records. Patient to be started on Eliquis 1. Continue ASA 81 mg daily with Eliquis. No Plavix at this time. Admission and Anticipated Discharge Date Admission Date: May 07, 2021 Supervising Physician Co-Signing Physician Notes Patient seen and examined with RUBEN Patel. Agree with findings and assessment as above. Patient with significant biventricular failure, RV strain noted status post PE. Patient was very disrespectful to Ms. Ivey this morning. Agree with increasing Lasix to 60 mg IV B. Subjective Upon entrance into the room, Patient was resting supine in bed. No acute distress. Patient inquired immediately about leaving today. Quickly became frustrated and inappropriate after another night in the hospital is highly recommended. Patient appeared mildly dyspneic with speaking. Unable to complete further review of systems as the patient was deferring questions back to the pro vider, could only focus on discharge date. Noted that he "has cancer and enough is enough". He is sick of being a "guinea pig". Patient was offered palliative care consult to discuss goals of care, he adamantly declined and stated he wanted to continue treatment. Noted that he may want to leave AMA stating "I will not come back to this establishment, I may not even go to a [facility]". Patient status reviewed with bedside nurse. Patient was walked in the [address] last evening. Was dyspneic and "Wobbly"- did not measure O2 sat at the time due to instability. radiation monitor reviewed: SR 90s Patient is +2 L (?unmeasured voids), weight 98.4 kg Past medical history: -COPD- current smoker, at least 1ppd x60 years -Multiple myeloma, receives care at [facility] in [place] for IgG kappa multiple myeloma. Regimen includes monthly daratumumab -Peripheral arterial disease, normally maintained on aspirin and Plavix-unknown specifics, questionable stent to left lower extremity -Hypertension -Diabetes type 2, uncontrolled with neuropathy -History of BHARTI -Known medication noncompliance with antihypertensives, Lasix, diabetic medications, aspirin, and Plavix Review of Systems Review of Systems: Unable to obtained due to patient behavior as stated in HPI Physical Exam Physical Exam: Unable to complete full physical exam due to patient behavior. Limited exam performed. Constitutional: average body habitus and + edematous Eyes: PERRL, conjunctivae normal, anicteric sclerae Respiratory: normal respiratory effort, + cough and + tachypneic Cardiovascular: Rate/Rhythm: regular rate (90s on monitor) and regular rhythm Extremities: + edema (+2 RLE +3 LLE, No edema in LUE, +2 RUE) Psychiatric: Orientation: oriented x 3; + uncooperative Affect: + anxious affect and + angry affect Results & Data ([facility]) Vital Signs (Past 12 Hours) Vital Signs Temp Pulse Pulse Resp BP Pulse Ox 05/10/21 05:15 36.5 C 92 H 25 H 129/73 91 05/09/21 23:59 91 H 05/09/21 23:49 36.8 C 101 H 25 H 149/75 H 92 05/09/21 19:26 36.4 C L 89 17 124/68 98 Laboratory Results 05/10/21 05/10/21 05/09/21 Range/Units 07:21 06:05 21:04 APTT (21.0-31.0) Seconds PTT Ratio Sodium 140 (136-145) mmol/L Potassium 4.4 (3.5-5.1) mmol/L Chloride 106 (98-107) mmol/L Carbon Dioxide 32 (21-32) mmol/L Anion Gap 2.0 L (3-11) BUN 23 H (7-18) mg/dl Creatinine 1.18 (0.6-1.4) mg/dl Est Cr Clr Drug Dosing 61.4 ml/min Est GFR ( Amer) 70.0 ml/min Est GFR (Non-Af Amer) 60.4 ml/min BUN/Creatinine Ratio 19.5 (10-20) Glucose 109 H (70-99) mg/dl POC Glucose 118 H 85 (70-99) mg/dl Calcium 7.6 L (8.5-10.1) mg/dl Magnesium 1.9 (1.8-2.4) mg/dl 05/09/21 05/09/21 05/09/21 Range/Units 20:31 20:05 20:04 APTT (21.0-31.0) Seconds PTT Ratio Sodium (136-145) mmol/L Potassium (3.5-5.1) mmol/L Chloride (98-107) mmol/L Carbon Dioxide (21-32) mmol/L Anion Gap (3-11) BUN (7-18) mg/dl Creatinine (0.6-1.4) mg/dl Est Cr Clr Drug Dosing ml/min Est GFR ( Amer) ml/min Est GFR (Non-Af Amer) ml/min BUN/Creatinine Ratio (10-20) Glucose (70-99) mg/dl POC Glucose 56 L* 58 L* 69 L* (70-99) mg/dl Calcium (8.5-10.1) mg/dl Magnesium (1.8-2.4) mg/dl 05/09/21 05/09/21 05/09/21 Range/Units 16:14 13:59 11:34 APTT 57.9 H* (21.0-31.0) Seconds PTT Ratio 2.2 Sodium (136-145) mmol/L Potassium (3.5-5.1) mmol/L Chloride (98-107) mmol/L Carbon Dioxide (21-32) mmol/L Anion Gap (3-11) BUN (7-18) mg/dl Creatinine (0.6-1.4) mg/dl Est Cr Clr Drug Dosing ml/min Est GFR ( Amer) ml/min Est GFR (Non-Af Amer) ml/min BUN/Creatinine Ratio (10-20) Glucose (70-99) mg/dl POC Glucose 93 157 H (70-99) mg/dl Calcium (8.5-10.1) mg/dl Magnesium (1.8-2.4) mg/dl (1) Pulmonary embolism Acute cor pulmonale presence: unspecified Chronicity: unspecified Pulmonary embolism type: unspecified Qualified Code(s): I26.99 - Other pulmonary embolism without acute cor pulmonale (2) Multiple myeloma Multiple myeloma remission status: unspecified Qualified Code(s): C90.00 - Multiple myeloma not having achieved remission
--- NOTE | 2021-05-10 08:10 | Hospitalist Progress Note ---
Date of Service May 10, 2021 Assessment & Plan (1) Acute respiratory failure with hypoxia and hypercapnia: Plan: This is a 76yo M with a PMH of HTN, DM II, COPD, PAD, ongoing tobacco use x 60 years, peripheral neuropathy, Multiple Myeloma on immunotherapy, medication non- compliance who presents with progressive SOB over the past few months. Multifactorial mostly related to PE versus CHF versus pneumonia Hypoxic at 86% on room air, improved to 93% with bipap trial, now 92% on 6L oxymask CTA chest showed right lower lobe pulmonary embolus. There are small pleural effusions. The right pleural effusion is partially loculated.There is dense consolidation at both lung bases, left greater than right. Mild patchy opacities are seen throughout the left upper lung. ABG showed pH 7.29, PCO2 55 and PO2 77 Was placed on BiPAP but patient was able to tolerated Afebrile with normal wbc and procal Currently on Unasyn IV Pulmonary on board discontinued IV antibiotic, will do Augmentin BID for 2 days to complete the course Case discussed with cardiology recommended to increase Lasix to 60 mg IV twice daily Continue oxygen supplement Consider two-step on discharge Continue monitor closely (2) Pulmonary embolism: Plan: Right lower lobe PE on Chest CTA Currently on IV heparin drip Echo shows severe global hypokinesis with ejection fraction 15 to 20% Case discussed with his oncology who is his primary oncologist and as well as Dr. Montoya about anticoagulated on discharge. Both recommended to to transition to DOAC such as Eliquis Might need 6 months of oral anticoagulant anticoagulation, but due to history of multiple myeloma oncology might consider a long-term anticoagulant (3) Acute on chronic systolic CHF (congestive heart failure): (4) Volume overload: Plan: No formal CHF diagnosis in [facility] records requested but clinically appears to have decompensated CHF Prescribed 80mg PO Lasix daily for BLE swelling, per [facility] records TTE performed while patient in ED showed severe global hypokinesis with ejection fraction 15 to 20% Pro-BNP 24,198, edema noted in BLE extremities up to groin, upper extremity as well Cardiology on board Case discussed with cardiology that recommend to increase Lasix to 60 mg IV twice daily Monitor BMP closely while on IV Lasix Continue monitor I/O (5) Elevated troponin: Plan: Mostly due to demand ischemia due to acute respiratory failure in the setting of PE EKG showed no ischemic changes Cardiology on board Already anticoagulated with IV heparin for PE, then transition to Eliquis Echo showed severe global hypokinesis with ejection fraction 15 to 20% Continue aspirin, statin and metoprolol Currently denies any chest pain (6) Multiple myeloma: Plan: Receives cancer care at [facility] in [place] for IgG kappa multiple myeloma. 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 Eliquis Code status: FULL PCP: [facility] Dispo: Continue monitor in PCU closely Admission and Anticipated Discharge Date Admission Date: May 07, 2021 Subjective Patient was seen and examined for follow-up of shortness of breath Lying in bed with no acute distress Patient said that his breathing is a little bit worse today He is required 5L oxygen Physical Exam Physical Exam: General- No acute distress Head- atraumatic Eyes- PERRL, EOMI, ENT- oropharynx clear Neck- supple, no JVD Lungs- +diminished BS Heart- regular rhythm; no murmur Abdomen- normal bowel sounds, soft, nontender Extremities- no calf tenderness, +edema Neuro- alert, oriented x 3; PERRL, EOMI; no facial palsy; no dysarthria Skin- warm & dry Results & Data Results & Data ([facility]) Vital Signs (Past 12 Hours) Vital Signs Temp Pulse Pulse Resp BP Pulse Ox 05/10/21 07:23 36.5 C 93 H 23 138/77 91 05/10/21 05:15 36.5 C 92 H 25 H 129/73 91 05/09/21 23:59 91 H 05/09/21 23:49 36.8 C 101 H 25 H 149/75 H 92 (1) Pulmonary embolism Acute cor pulmonale presence: unspecified Chronicity: unspecified Pulmonary embolism type: unspecified Qualified Code(s): I26.99 - Other pulmonary embolism without acute cor pulmonale (2) Multiple myeloma Multiple myeloma remission status: unspecified Qualified Code(s): C90.00 - Multiple myeloma not having achieved remission
[2021-05-10] MEDS: INSULIN ASPART 100 UNITS/ML 3 ML PEN SC SCH ×4 (08:35→20:43)
[2021-05-10] MEDS: SPIRONOLACTONE 12.5 MG TAB PO SCH (08:44)
[2021-05-10] MEDS: LOSARTAN POTASSIUM 50 MG TAB PO SCH (08:44)
[2021-05-10] MEDS: APIXABAN 5 MG TABLET PO SCH ×2 (08:44→20:42)
[2021-05-10] MEDS: FUROSEMIDE 40 MG in SYRINGE 0 ML IV SCH (08:44)
[2021-05-10] MEDS: ASPIRIN 81 MG ECTAB PO SCH (08:44)
[2021-05-10] MEDS: METOPROLOL SUCC 25MG EXT REL TAB PO SCH (08:44)
[2021-05-10] MEDS: CYANOCOBALAMIN 500 MCG TABLET (VITAMIN B-12) PO SCH (08:44)
[2021-05-10] MEDS: UMECLIDINIUM/VILANTEROL 62.5/25MCG 7 PUFFS/INHALER INH SCH (08:45)
[2021-05-10] MEDS: ATORVASTATIN 40 MG TAB PO SCH (08:45)
[2021-05-10] MEDS: INSULIN GLARGINE SOLOSTAR 100 UNITS/ML 3 ML PEN SC SCH (08:46)
[2021-05-10] MEDS: AMOXICILLIN/CLAVULANATE 875 MG TAB PO SCH ×2 (09:28→17:10)
[2021-05-10] MEDS ORDERED: METOPROLOL SUCC 25MG EXT REL TAB PO ONE (10:30)
[2021-05-10] MEDS ORDERED: FUROSEMIDE 20 MG in SYRINGE 0 ML IV ONE (10:30)
--- NOTE | 2021-05-10 11:54 | Pharmacy Report ---
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 Fasting BSG 118 this AM w/ 14 units Lantus on board. Will continue w/ this reduced dose but split BID and hold if BSG less than 100 * Novolog doses will be scaled back as a precaution today 05/09 * 48 units SQ insulin given over last 24 hrs * BSGs mostly well controlled over last 24 hrs * Fasting BSG 122 this AM w/ 32 units basal on board. Will titrate dose down 10% as we have not yet reached steady-state w/ current Lantus dose * Post-prandial BSGs did fall quickly after lunch yesterday, dipping below 100 w/ dinner check. Will lessen Novolog doses slightly 05/08 * Type 2 diabetic admitted for resp failure secondary to ADHF, acute PE and possible pneumonia * Patient is poorly controlled per recent A1c despite use of 70/30 insulin * Will convert to basal/bolus SQ regimen consisting of Lantus + Novolog for this admission due to greater flexibility with dose titration and less risk of hypoglycemia with changing PO intake while hospitalized * Basal/bolus regimen will be based upon both out-pt doses and "moderate-severe" stress level PLAN FOR INPATIENT GLYCEMIC CONTROL: * Hold outpatient oral diabetes medications (70/30 insulin) * Basal insulin - decrease * Lantus SQ BID per scale: 0 units if BSG less than 100, 7 units if BSG 100 or greater * Bolus insulin - decrease * NovoLog per scale ACHS or Q6hrs while NPO * Goal Range: Low 110 mg/dL - High 140 mg/dL * Correction Factor: 25 mg/dL/unit * Nutritional / Prandial insulin per carb ratio of 1 unit per 9 grams CHO consumed PLAN FOR DISCHARGE: * Given A1c 11.9%, likely due to non-compliance with insulin regimen. Would recommend an empiric dose reduction on discharge given insulin requirements this hospitalization of 30-40 units PER DAY. Might consider 20 units 70/30 w/ breakfast and 10 units w/ dinner. [facility]. Would recommend f/u within a week of discharge to assist with titration of doses.
[2021-05-10] MEDS: FUROSEMIDE 60 MG in SYRINGE 0 ML IV SCH (17:11)
[2021-05-10] MEDS: TAMSULOSIN HCL 0.4 MG CAP PO SCH (20:42)
[2021-05-10] MEDS: HEPARIN SODIUM/DEXTROSE 25,000 UNITS/500 ML BAG IV SCH (23:36)
[2021-05-11] MEDS: INSULIN GLARGINE SOLOSTAR 100 UNITS/ML 3 ML PEN SC SCH (01:24)
[2021-05-11] MEDS: HEPARIN SODIUM/DEXTROSE 25,000 UNITS/500 ML BAG IV SCH ×2 (01:25→01:26)
[2021-05-11 06:07] LABS: Hematocrit (blood only) 38.9 % (42-52); Hemoglobin 12.2 g/dL (14.0-18.0); Mean Corpuscular Hgb Conc 31.4 g/dL (32-36); Mean Corpuscular Volume 95.6 fL (80-100); Mean Platelet Volume 11.2 fL (7.4-10.4); Platelet Count 181 K/uL (130-400); RDW Coefficient of Variation 13.5 % (11.5-14.5); RDW Standard Deviation 47.6 fL (36.4-46.3); Red Blood Count 4.07 M/uL (4.7-6.1); White Blood Count 6.52 K/uL (4.8-10.8)
[2021-05-11 06:40] LABS: BUN Creatinine Ratio 21.6 (10-20); Calcium 8.1 mg/dl (8.5-10.1); Creatinine Clr Calc Pharmacy 67.2 ml/min; Est GFR (Non-African American) 67.3 ml/min; Potassium 4.6 mmol/L (3.5-5.1)
[2021-05-11] MEDS: AMOXICILLIN/CLAVULANATE 875 MG TAB PO SCH ×2 (08:15→16:52)
[2021-05-11] MEDS: INSULIN ASPART 100 UNITS/ML 3 ML PEN SC SCH ×4 (08:16→19:38)
[2021-05-11] MEDS: APIXABAN 5 MG TABLET PO SCH ×2 (08:34→19:37)
[2021-05-11] MEDS: ASPIRIN 81 MG ECTAB PO SCH (08:34)
[2021-05-11] MEDS: CYANOCOBALAMIN 500 MCG TABLET (VITAMIN B-12) PO SCH (08:35)
[2021-05-11] MEDS: ATORVASTATIN 40 MG TAB PO SCH (08:35)
[2021-05-11] MEDS: FUROSEMIDE 60 MG in SYRINGE 0 ML IV SCH ×2 (08:36→16:53)
[2021-05-11] MEDS: LOSARTAN POTASSIUM 50 MG TAB PO SCH (08:36)
[2021-05-11] MEDS: METOPROLOL SUCC 25MG EXT REL TAB PO SCH (08:38)
[2021-05-11] MEDS: SPIRONOLACTONE 12.5 MG TAB PO SCH (08:38)
[2021-05-11] MEDS: UMECLIDINIUM/VILANTEROL 62.5/25MCG 7 PUFFS/INHALER INH SCH (08:39)
[2021-05-11] MEDS ORDERED: INSULIN GLARGINE SOLOSTAR 100 UNITS/ML 3 ML PEN SC SCH (09:00)
--- NOTE | 2021-05-11 13:06 | Cardiology Progress Note ---
Date of Service May 11, 2021 Assessment & Plan (1) Acute on chronic systolic CHF (congestive heart failure): Plan: Newly diagnosed HFrEF with significant biventricular failure, RV strain noted s/p PE. In adjunct, Possible Takotsubo cardiomyopathy due to increased stressors specifically over the last 2 months. Pulmonary did not feel that the PE required higher filling pressures and suggested aggressive diuresis. Remains hypervolemic on exam, Continue diuresis. 1. Recommending optimization of his medications to goal-directed medical therapy to improve LVEF. Continue losartan 100 mg daily Continue spironolactone 12.5 mg daily. Continue to hold potassium supplementation at this time. Trend BMP over hospital course. Continue Evidence based beta bhavya, increase metoprolol succinate to 25 mg daily, will likely uptitrate prior to dc 2. Continue Lasix 60 mg IV twice daily. Trend and replete Potassium and mag as necessary. 3. Can consider outpatient nuclear stress test following discharge. (2) Pulmonary embolism: Plan: Per pulmonary, "small volume of clot and questionable chronicity (appears incorporated into the vessel wall) may make this less of an acute issue". On IV heparin-we will defer to hospitalist team for hematology for anticoagulation management. Troponin slightly elevated 0.110, 0.133 likely in the setting of pulmonary embolism. Can consider outpatient nuclear stress test following discharge. 1. Plans to start Eliquis. Ok to continue ASA 81 mg daily at this time. Will hold Plavix. (3) Acute respiratory failure with hypoxia and hypercapnia: Plan: Upon presentation to the hospital patient was hypoxic, 86% on room air. O2 now stable on 6L NC. Underlying COPD. Continue tobacco user. IV abx dc'd per hospitalist team, PNA unlikely. (4) HTN (hypertension): Plan: Controlled. Plan as stated above (5) DM type 2, uncontrolled, with neuropathy: Plan: Uncontrolled. A1c 11.9. Will defer to hospitalist team for diabetic management. (6) Multiple myeloma: Plan: Receives cancer care at [facility] in [place] for IgG kappa multiple myeloma. Regimen includes monthly daratumumab (7) PAD (peripheral artery disease): Plan: History of stenting in his left lower extremity. Normally maintained on aspirin and Plavix. Plavix is currently on hold, awaiting outpatient records. Patient to be started on Eliquis 1. Continue ASA 81 mg daily with Eliquis. No Plavix at this time. Admission and Anticipated Discharge Date Admission Date: May 07, 2021 Subjective Patient seen and examined, out of bed in chair eating lunch, chart reviewed. States he is feeling frustrated today on his lack of progress. Still requiring oxygen. Denies chest pain, palpitations, lightheadedness, dizziness or syncope. Telemetry reviewed: Normal sinus rhythm without arrhythmia. Review of Systems Review of Systems: All systems reviewed & are unremarkable except as noted in HPI & below Physical Exam Physical Exam: General: Awake, alert and oriented x 3. No acute distress. HEENT: Normocephalic, atraumatic. Pupils equal, round and reactive to light and accommodation. Extraocular muscles are intact. Anicteric sclera. Moist mucous membranes. Neck: No JVD. No bruit. Cardiovascular: Regular. Positive S-4. Normal S-1 and S-2. No S-3. 3/6 holosystolic ejection murmur, left sternal border, mid-clavicular line with radiation to the axilla. No rubs. Pulmonary: Clear to auscultation bilaterally. No rales, rhonchi, or wheezing. Abdomen: Bowel sounds x 4, soft. No rebound, guarding or tenderness. No organomegaly. Extremities: No clubbing, cyanosis or edema. +2 pedal pulses bilaterally. Skin: Warm and dry. Results & Data ([facility]) Vital Signs (Past 12 Hours) Vital Signs Temp Pulse Pulse Resp BP Pulse Ox 05/11/21 12:00 36.8 C 88 16 116/73 95 05/11/21 08:00 36.8 C 76 18 146/74 H 96 05/11/21 07:22 89 05/11/21 04:00 36.4 C L 94 H 22 149/90 H 98 (1) Pulmonary embolism Acute cor pulmonale presence: unspecified Chronicity: unspecified Pulmonary embolism type: unspecified Qualified Code(s): I26.99 - Other pulmonary embolism without acute cor pulmonale (2) Multiple myeloma Multiple myeloma remission status: unspecified Qualified Code(s): C90.00 - Multiple myeloma not having achieved remission
--- NOTE | 2021-05-11 18:36 | Hospitalist Progress Note ---
Date of Service May 11, 2021 Assessment & Plan (1) Acute respiratory failure with hypoxia and hypercapnia: Plan: This is a 76yo M with a PMH of HTN, DM II, COPD, PAD, ongoing tobacco use x 60 years, peripheral neuropathy, Multiple Myeloma on immunotherapy, medication non- compliance who presents with progressive SOB over the past few months. Multifactorial mostly related to PE versus CHF versus pneumonia Hypoxic at 86% on room air, improved to 93% with bipap trial, now 92% on 6L oxymask CTA chest showed right lower lobe pulmonary embolus. There are small pleural effusions. The right pleural effusion is partially loculated.There is dense consolidation at both lung bases, left greater than right. Mild patchy opacities are seen throughout the left upper lung. ABG showed pH 7.29, PCO2 55 and PO2 77 Was placed on BiPAP but patient was able to tolerated Afebrile with normal wbc and procal Currently on Unasyn IV Pulmonary on board discontinued IV antibiotic, will do Augmentin BID for 2 days to complete the course Case discussed with cardiology recommended to increase Lasix to 60 mg IV twice daily Continue oxygen supplement Consider two-step on discharge PT/OT Continue monitor closely (2) Pulmonary embolism: Plan: Right lower lobe PE on Chest CTA Currently on IV heparin drip Echo shows severe global hypokinesis with ejection fraction 15 to 20% Case discussed with his oncology who is his primary oncologist and as well as Dr. Montoya about anticoagulated on discharge. Both recommended to to transition to DOAC such as Eliquis Might need 6 months of oral anticoagulant anticoagulation, but due to history of multiple myeloma oncology might consider a long-term anticoagulant (3) Acute on chronic systolic CHF (congestive heart failure): (4) Volume overload: Plan: No formal CHF diagnosis in [facility] records requested but clinically appears to have decompensated CHF Prescribed 80mg PO Lasix daily for BLE swelling, per [facility] records TTE performed while patient in ED showed severe global hypokinesis with ejection fraction 15 to 20% Pro-BNP 24,198, edema noted in BLE extremities up to groin, upper extremity as well Cardiology on board Case discussed with cardiology that recommend to increase Lasix to 60 mg IV twice daily Monitor BMP closely while on IV Lasix Continue IV diuresis BID Continue monitor I/O (5) Elevated troponin: Plan: Mostly due to demand ischemia due to acute respiratory failure in the setting of PE EKG showed no ischemic changes Cardiology on board Already anticoagulated with IV heparin for PE, then transition to Eliquis Echo showed severe global hypokinesis with ejection fraction 15 to 20% Continue aspirin, statin and metoprolol Plavix will be discontinued on discharge Currently denies any chest pain (6) Multiple myeloma: Plan: Receives cancer care at [facility] in [place] for IgG kappa multiple myeloma. 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 management Continue monitor blood sugar closely DVT Ppx:On Eliquis Code status: FULL PCP: [facility] Dispo: Continue monitor in PCU closely Admission and Anticipated Discharge Date Admission Date: May 07, 2021 Subjective Pt was seen and examined for follow up of SOB Sitting in chair with no distress eating lunch Pt said that he continues to have difficulty to breath His scrotum/extremities are swelling Denies any chest pain, palpitation, dizziness and SOB Physical Exam Physical Exam: General- No acute distress Head- atraumatic Eyes- PERRL, EOMI, ENT- oropharynx clear Neck- supple, no JVD Lungs- +diminished BS Heart- regular rhythm; no murmur Abdomen- normal bowel sounds, soft, nontender Extremities- no calf tenderness, +edema Neuro- alert, oriented x 3; PERRL, EOMI; no facial palsy; no dysarthria Skin- warm & dry Results & Data Results & Data ([facility]) Vital Signs (Past 12 Hours) Vital Signs Temp Pulse Pulse Resp BP Pulse Ox 05/11/21 15:45 37.0 C 88 18 130/66 96 05/11/21 15:30 82 05/11/21 12:00 36.8 C 88 16 116/73 95 05/11/21 08:00 36.8 C 76 18 146/74 H 96 05/11/21 07:22 89 (1) Pulmonary embolism Acute cor pulmonale presence: unspecified Chronicity: unspecified Pulmonary embolism type: unspecified Qualified Code(s): I26.99 - Other pulmonary embolism without acute cor pulmonale (2) Multiple myeloma Multiple myeloma remission status: unspecified Qualified Code(s): C90.00 - Multiple myeloma not having achieved remission
[2021-05-11] MEDS: TAMSULOSIN HCL 0.4 MG CAP PO SCH (19:38)
[2021-05-12 06:27] LABS: BUN Creatinine Ratio 25.1 (10-20); Calcium 8.2 mg/dl (8.5-10.1); Creatinine Clr Calc Pharmacy 69.8 ml/min; Est GFR (African American) 81.6 ml/min; Est GFR (Non-African American) 70.4 ml/min; Potassium 4.8 mmol/L (3.5-5.1)
[2021-05-12] MEDS: APIXABAN 5 MG TABLET PO SCH ×2 (08:20→19:22)
[2021-05-12] MEDS: FUROSEMIDE 60 MG in SYRINGE 0 ML IV SCH ×2 (08:20→17:03)
[2021-05-12] MEDS: ATORVASTATIN 40 MG TAB PO SCH (08:21)
[2021-05-12] MEDS: CYANOCOBALAMIN 500 MCG TABLET (VITAMIN B-12) PO SCH (08:21)
[2021-05-12] MEDS: ASPIRIN 81 MG ECTAB PO SCH (08:21)
[2021-05-12] MEDS: LOSARTAN POTASSIUM 50 MG TAB PO SCH (08:21)
[2021-05-12] MEDS: METOPROLOL SUCC 25MG EXT REL TAB PO SCH (08:21)
[2021-05-12] MEDS: UMECLIDINIUM/VILANTEROL 62.5/25MCG 7 PUFFS/INHALER INH SCH (08:22)
[2021-05-12] MEDS: SPIRONOLACTONE 12.5 MG TAB PO SCH (08:22)
[2021-05-12] MEDS: INSULIN ASPART 100 UNITS/ML 3 ML PEN SC SCH ×4 (08:23→19:28)
[2021-05-12] MEDS ORDERED: INSULIN GLARGINE SOLOSTAR 100 UNITS/ML 3 ML PEN SC SCH (09:00)
--- NOTE | 2021-05-12 09:32 | Pharmacy Report ---
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 Will loosen CF/CR * AM fasting BSG is slightly below goal range for inpatient targets at 97mg/dl. Will reduce basal insulin dosing 05/10 * 30 units SQ insulin given over last 24 hrs * BSGs well controlled with the exception of HS hypoglycemia - possibly due to excess basal insulin as pt did not receive a dinnertime dose of Novolog * Held evening dose of Lantus last evening. Fasting BSG 118 this AM w/ 14 units Lantus on board. Will continue w/ this reduced dose but split BID and hold if BSG less than 100 * Novolog doses will be scaled back as a precaution today 05/09 * 48 units SQ insulin given over last 24 hrs * BSGs mostly well controlled over last 24 hrs * Fasting BSG 122 this AM w/ 32 units basal on board. Will titrate dose down 10% as we have not yet reached steady-state w/ current Lantus dose * Post-prandial BSGs did fall quickly after lunch yesterday, dipping below 100 w/ dinner check. Will lessen Novolog doses slightly 05/08 * Type 2 diabetic admitted for resp failure secondary to ADHF, acute PE and possible pneumonia * Patient is poorly controlled per recent A1c despite use of 70/30 insulin * Will convert to basal/bolus SQ regimen consisting of Lantus + Novolog for this admission due to greater flexibility with dose titration and less risk of hyp oglycemia with changing PO intake while hospitalized * Basal/bolus regimen will be based upon both out-pt doses and "moderate-severe" stress level PLAN FOR INPATIENT GLYCEMIC CONTROL: * Hold outpatient oral diabetes medications (70/30 insulin) * Basal insulin - decrease * Lantus 8 units SQ daily in AM * Bolus insulin - decrease * NovoLog per scale ACHS or Q6hrs while NPO * Goal Range: Low 110 mg/dL - High 140 mg/dL * Correction Factor: 30 mg/dL/unit * Nutritional / Prandial insulin per carb ratio of 1 unit per 10 grams CHO consumed PLAN FOR DISCHARGE: * Given A1c 11.9%, likely due to non-compliance with insulin regimen. Would recommend an empiric dose reduction on discharge given insulin requirements this hospitalization of 30-40 units PER DAY. Might consider 20 units 70/30 w/ breakfast and 10 units w/ dinner. [facility]. Would recommend f/u within a week of discharge to assist with titration of doses.
--- NOTE | 2021-05-12 13:50 | Cardiology Progress Note ---
Date of Service May 12, 2021 Assessment & Plan (1) Acute on chronic systolic CHF (congestive heart failure): Plan: Newly diagnosed HFrEF with significant biventricular failure, RV strain noted s/p PE. In adjunct, Possible Takotsubo cardiomyopathy due to increased stressors specifically over the last 2 months. Pulmonary did not feel that the PE required higher filling pressures and suggested aggressive diuresis. Remains hypervolemic on exam, Continue diuresis. 1. Recommending optimization of his medications to goal-directed medical therapy to improve LVEF. Continue losartan 100 mg daily Continue spironolactone 12.5 mg daily. Continue to hold potassium supplementation at this time. Trend BMP over hospital course. Continue Evidence based beta bhavya, increase metoprolol succinate to 25 mg daily, will likely uptitrate prior to dc 2. Continue Lasix 60 mg IV twice daily. Trend and replete Potassium and mag as necessary. 3. Can consider outpatient nuclear stress test following discharge. (2) Pulmonary embolism: Plan: Per pulmonary, "small volume of clot and questionable chronicity (appears incorporated into the vessel wall) may make this less of an acute issue". On IV heparin-we will defer to hospitalist team for hematology for anticoagulation management. Troponin slightly elevated 0.110, 0.133 likely in the setting of pulmonary embolism. Can consider outpatient nuclear stress test following discharge. 1. Plans to start Eliquis. Ok to continue ASA 81 mg daily at this time. Will hold Plavix. (3) Acute respiratory failure with hypoxia and hypercapnia: Plan: Upon presentation to the hospital patient was hypoxic, 86% on room air. O2 now stable on 6L NC. Underlying COPD. Continue tobacco user. IV abx dc'd per hospitalist team, PNA unlikely. (4) HTN (hypertension): Plan: Controlled. Plan as stated above (5) DM type 2, uncontrolled, with neuropathy: Plan: Uncontrolled. A1c 11.9. Will defer to hospitalist team for diabetic management. (6) Multiple myeloma: Plan: Receives cancer care at [facility] in [place] for IgG kappa multiple myeloma. Regimen includes monthly daratumumab (7) PAD (peripheral artery disease): Plan: History of stenting in his left lower extremity. Normally maintained on aspirin and Plavix. Plavix is currently on hold, awaiting outpatient records. Patient to be started on Eliquis 1. Continue ASA 81 mg daily with Eliquis. No Plavix at this time. Admission and Anticipated Discharge Date Admission Date: May 07, 2021 Subjective Patient seen and examined, chart reviewed. States he still remains short of breath and with peripheral edema but does admit to improvement since admission. Denies chest pain, palpitations, lightheadedness, dizziness or syncope. Telemetry reviewed: Normal sinus rhythm without arrhythmia Review of Systems Review of Systems: All systems reviewed & are unremarkable except as noted in HPI & below Physical Exam Physical Exam: General: Awake, alert and oriented x 3. No acute distress. HEENT: Normocephalic, atraumatic. Pupils equal, round and reactive to light and accommodation. Extraocular muscles are intact. Anicteric sclera. Moist mucous membranes. Neck: No JVD. No bruit. Cardiovascular: Regular. Positive S-4. Normal S-1 and S-2. No S-3. 3/6 holosystolic ejection murmur, left sternal border, mid-clavicular line with radiation to the axilla. No rubs. Pulmonary: Clear to auscultation bilaterally. No rales, rhonchi, or wheezing. Abdomen: Bowel sounds x 4, soft. No rebound, guarding or tenderness. No o rganomegaly. Extremities: No clubbing, cyanosis or edema. +2 pedal pulses bilaterally. Skin: Warm and dry. Results & Data ([facility]) Vital Signs (Past 12 Hours) Vital Signs Temp Pulse Pulse Resp BP Pulse Ox 05/12/21 11:05 36.9 C 73 18 107/56 L 97 05/12/21 08:00 77 05/12/21 07:12 36.6 C 75 21 115/58 L 92 05/12/21 04:47 36.6 C 76 23 126/64 91 (1) Pulmonary embolism Acute cor pulmonale presence: unspecified Chronicity: unspecified Pulmonary embolism type: unspecified Qualified Code(s): I26.99 - Other pulmonary embolism without acute cor pulmonale (2) Multiple myeloma Multiple myeloma remission status: unspecified Qualified Code(s): C90.00 - Multiple myeloma not having achieved remission
--- NOTE | 2021-05-12 15:02 | Hospitalist Progress Note ---
Date of Service May 12, 2021 Assessment & Plan (1) Acute respiratory failure with hypoxia and hypercapnia: Plan: This is a 76yo M with a PMH of HTN, DM II, COPD, PAD, ongoing tobacco use x 60 years, peripheral neuropathy, Multiple Myeloma on immunotherapy, medication non- compliance who presents with progressive SOB over the past few months. Multifactorial mostly related to PE versus CHF versus pneumonia Hypoxic at 86% on room air, improved to 93% with bipap trial, now 92% on 6L oxymask CTA chest showed right lower lobe pulmonary embolus. There are small pleural effusions. The right pleural effusion is partially loculated.There is dense consolidation at both lung bases, left greater than right. Mild patchy opacities are seen throughout the left upper lung. ABG showed pH 7.29, PCO2 55 and PO2 77 Was placed on BiPAP but patient was able to tolerated Afebrile with normal wbc and procal Currently on Unasyn IV Pulmonary on board discontinued IV antibiotic, will do Augmentin BID for 2 days to complete the course Case discussed with cardiology recommended to increase Lasix to 60 mg IV twice daily Continue oxygen supplement Consider two-step on discharge PT/OT Continue monitor closely (2) Pulmonary embolism: Plan: Right lower lobe PE on Chest CTA Currently on IV heparin drip Echo shows severe global hypokinesis with ejection fraction 15 to 20% Case discussed with his oncology who is his primary oncologist and as well as Dr. Montoya about anticoagulated on discharge. Both recommended to to transition to DOAC such as Eliquis Might need 6 months of oral anticoagulant anticoagulation, but due to history of multiple myeloma oncology might consider a long-term anticoagulant (3) Acute on chronic systolic CHF (congestive heart failure): (4) Volume overload: Plan: Possible Takotsubo cardiomyopathy due to increased stressors specifically over the last 2 months. No formal CHF diagnosis in [facility] records requested but clinically appears to have decompensated CHF Prescribed 80mg PO Lasix daily for BLE swelling, per [facility] records TTE performed while patient in ED showed severe global hypokinesis with ejection fraction 15 to 20% Pro-BNP 24,198, edema noted in BLE extremities up to groin, upper extremity as well Cardiology on board Case discussed with cardiology that recommend to increase Lasix to 60 mg IV twice daily Monitor BMP closely while on IV Lasix Continue IV diuresis BID Continue monitor I/O (5) Elevated troponin: Plan: Mostly due to demand ischemia due to acute respiratory failure in the setting of PE EKG showed no ischemic changes Cardiology on board Already anticoagulated with IV heparin for PE, then transition to Eliquis Echo showed severe global hypokinesis with ejection fraction 15 to 20% Continue aspirin, statin and metoprolol Plavix will be discontinued on discharge Currently denies any chest pain (6) Multiple myeloma: Plan: Receives cancer care at [facility] in [place] for IgG kappa multiple myeloma. Regimen includes monthly daratumumab (7) PAD (peripheral artery disease): Plan: Plavix discontinued Case discussed with cardiology recommend continue aspirin and Eliquis on discharge (8) HTN (hypertension): Plan: Amlodipine discontinued Continue Spironolactone 12.5 mg and Losartan 100mg Continue losartan 100 mg daily (9) DM type 2, uncontrolled, with neuropathy: Plan: Most recent hemoglobin A1c is 11.9 on 05/08/2021 Pharmacy on board for glycemic management personal development educator on board on insulin as per pharmacy management Continue monitor blood sugar closely DVT Ppx:On Eliquis Code status: FULL PCP: [facility] Dispo: [place] [facility] [place] Admission and Anticipated Discharge Date Admission Date: May 07, 2021 Subjective Patient was seen and examined for follow-up of shortness of breath Lying in bed with no distress resting comfortable Patient said that his breathing and his swelling improved significantly He said that he has been urinated much now His oxygen requirement titrated from 5L to 2-3 L Denies any chest pain, palpitation, dizziness, shortness of breath. Physical Exam Physical Exam: General- No acute distress Head- atraumatic Eyes- PERRL, EOMI, ENT- oropharynx clear Neck- supple, no JVD Lungs- +diminished BS Heart- regular rhythm; no murmur Abdomen- normal bowel sounds, soft, nontender Extremities- no calf tenderness, +edema Neuro- alert, oriented x 3; PERRL, EOMI; no facial palsy; no dysarthria Skin- warm & dry Results & Data Results & Data ([facility]) Vital Signs (Past 12 Hours) Vital Signs Temp Pulse Pulse Resp BP Pulse Ox 05/12/21 11:05 36.9 C 73 18 107/56 L 97 05/12/21 08:00 77 05/12/21 07:12 36.6 C 75 21 115/58 L 92 08/15/21 04:47 36.6 C 76 23 126/64 91 (1) Pulmonary embolism Acute cor pulmonale presence: unspecified Chronicity: unspecified Pulmonary embolism type: unspecified Qualified Code(s): I26.99 - Other pulmonary embolism without acute cor pulmonale (2) Multiple myeloma Multiple myeloma remission status: unspecified Qualified Code(s): C90.00 - Multiple myeloma not having achieved remission
[2021-05-12] MEDS: TAMSULOSIN HCL 0.4 MG CAP PO SCH (19:23)
--- NOTE | 2021-05-13 07:21 | Cardiology Progress Note ---
Date of Service May 13, 2021 Assessment & Plan (1) Acute on chronic systolic CHF (congestive heart failure): Plan: Newly diagnosed HFrEF with significant biventricular failure, RV strain noted s/p PE. In adjunct, Possible Takotsubo cardiomyopathy due to increased stressors specifically over the last 2 months. Pulmonary did not feel that the PE required higher filling pressures and suggested aggressive diuresis. Question of a LAD wall motion abnormality vs infiltrative process due to diagnosis of multiple myleoma, will rule out amyloid as possible cause for new HFrEF. Responding to IV diuretic therapy, continue to diurese. 1. Recommending optimization of his medications to goal-directed medical therapy to improve LVEF. Continue losartan 100 mg daily, can consider Entresto as outpatient. Continue spironolactone 12.5 mg daily. Continue to hold potassium supplementation at this time. Trend BMP over hospital course. Continue Evidence based beta bhavya, Continue metoprolol succinate to 25 mg daily. 2. Continue diuresis with Lasix 60 mg IV twice daily. Trend and replete Potassium and mag as necessary. 3. Order Serum immunofixation and 24 hour urine electrophoresis- rule out amyloidosis. 4. Can consider outpatient nuclear stress test following discharge. Repeat echo in 3 months following optimization of GDMT. (2) Pulmonary embolism: Plan: Per pulmonary, "small volume of clot and questionable chronicity (appears incorporated into the vessel wall) may make this less of an acute issue". Troponin elevation of 0.110, 0.133 likely due to demand ischemia in the setting of acute respiratory failure in the setting of pulmonary embolism. Can consider outpatient nuclear stress test following discharge. 1. On Eliquis. Ok to continue ASA 81 mg daily at this time. Will hold Plavix. (3) Acute respiratory failure with hypoxia and hypercapnia: Plan: Upon presentation to the hospital patient was hypoxic, 86% on room air. O2 now stable on 3L NC. Underlying COPD. Continue tobacco user. IV abx dc'd per hospitalist team, PNA unlikely. 1. Recommend 2 step prior to DC (4) HTN (hypertension): Plan: Controlled. Plan as stated above (5) DM type 2, uncontrolled, with neuropathy: Plan: Uncontrolled. A1c 11.9. Will defer to hospitalist team for diabetic management. (6) Multiple myeloma: Plan: Receives cancer care at [facility] in [place] for IgG kappa multiple myeloma. Regimen includes monthly daratumumab. 1. Plan as stated above. (7) PAD (peripheral artery disease): Plan: History of stenting in his left lower extremity. Normally maintained on aspirin and Plavix. Plavix is currently on hold, awaiting outpatient records. Patient to be started on Eliquis 1. Continue ASA 81 mg daily with Eliquis. No Plavix at this time. Admission and Anticipated Discharge Date Admission Date: May 07, 2021 Supervising Physician Co-Signing Physician Notes Supervising Physician Attestation: I have personally performed a history and physical examination on the patient. I agree with the nurse practitioner's findings and plan as documented with the following additions. Subjective: Attempted to see the patient this morning but he was utilizing the commode. Prior to returning to attempt to see him a second time, I received the news from Dr. Moreno that the patient was requesting to leave the hospital AGAINST MEDICAL ADVICE. Patient seen in person. Still noted 2+ bilateral lower extremity edema. Telemetry revealed sinus rhythm with IVCD in the 60s. Exam: General: No acute distress Pulmonary: Decreased breath sounds bilaterally at the bases Cardiovascular: Regular, no murmurs 2+ bilateral lower extremity edema noted Data: Echocardiogram performed earlier this admission 05/07/2021 with images reviewed independently by the undersigned today, severe global left ventricular hypokinesis LVEF in the range of 15 to 20%. Severe right ventricular hypokinesis. Assessment and Plan: Newly diagnosed acute systolic heart failure Severe left ventricular systolic dysfunction due to cardiomyopathy, ischemic versus non ischemic etiology yet to be delineated. Reversible ongoing hospitalization for IV diuretic therapy recommended. I did discuss the patient's echocardiogram findings with him. I was unable to convince the patient with regards to remaining in the hospital for ongoing care. I discussed medication changes with him but he admitted "I am not very good with taking my medicines". I have offered to help arrange outpatient cardiology follow-up, or a site closer to where he lives near [place], [place], however patient declines , stating he will go on his own to [facility]. Patient describes a history of peripheral arterial disease, and states that he has had a left lower extremity stent placed at the [facility] in [place]. Details are unavailable. With regards to medication therapy, prescription for furosemide 60 mg twice daily spironolactone 12.5 mg provided by primary team. 05/13/21, 3:14 pm. Carlos Hilton, DO Subjective Upon entrance into the room patient was resting comfortably in bed, supine. No acute distress. Has been up multiple times throughout the morning going to the bathroom. Nurse notes that evening dose of Lasix was held due to low blood pressure, readings of 119/51 and 115/52. Patient endorses improvement in his lower extremity and upper extremity edema. Scrotal edema is minimal, per patient. Denies any dyspnea on exertion, physical therapy to work with patient this morning. Labs stable- sCr 1.04, potassium 4.8 ekg monitor tech reviewed: Sinus rhythm in the 60s to 70s with PACs EKG 8/10: ST with PACs, RBBB 107 bpm Patient is +1.5 L (?unmeasured voids), weight 98.1 kg (volume status and weight unchanged) Past medical history: -COPD- current smoker, at least 1ppd x60 years -Multiple myeloma, receives care at [facility] in [place] for IgG kappa multiple myeloma. Regimen includes monthly daratumumab -Peripheral arterial disease, normally maintained on aspirin and Plavix-unknown specifics, questionable stent to left lower extremity -Hypertension -Diabetes type 2, uncontrolled with neuropathy -History of BHARTI -Known medication noncompliance with antihypertensives, Lasix, diabetic medications, aspirin, and Plavix Review of Systems Review of Systems: All systems reviewed & are unremarkable except as noted in HPI & below Physical Exam Physical Exam: General: No acute distress. A+Ox3. HEENT: Normocephalic. Atraumatic. Conjunctiva and sclera clear. NECK: No carotid bruits. No JVD. Carotid upstrokes are brisk. Heart: Diminished heart sound, no murmur appreciated. Lungs: Diminished lung sounds bilaterally. No wheezing rhonchi or rales. Abdomen: Normal bowel sounds. Soft. Nontender. No masses or organomegaly. No abdominal bruits. Extremities: +1 BLLE nonpitting edema, no edema of the upper extremities, no clubbing or cyanosis. Pulses: radial=2/4, posterior tibial=2/4, dorsalis pedis = 2/4. NEURO: No focal deficits. PSYCH: Normal. Results & Data ([facility]) Vital Signs (Past 12 Hours) Vital Signs Temp Pulse Resp BP Pulse Ox 05/13/21 03:49 36.8 C 74 24 114/77 96 05/12/21 23:07 36.9 C 74 18 124/62 96 (1) Pulmonary embolism Acute cor pulmonale presence: unspecified Chronicity: unspecified Pulmonary embolism type: unspecified Qualified Code(s): I26.99 - Other pulmonary embolism without acute cor pulmonale (2) Multiple myeloma Multiple myeloma remission status: unspecified Qualified Code(s): C90.00 - Multiple myeloma not having achieved remission
--- NOTE | 2021-05-13 07:56 | Pharmacy Report ---
Pharmacy Glycemic Sign Off Nt - Date of Service May 13, 2021 - Assessment & Plan ASSESSMENT: * Pharmacy consulted for glycemic management. * Stressors stable. * BSG's ranged 85-150 mg/dL yesterday. * Pharmacy signing off glycemic management at this time - discussed with Dr. Santy hyde PLAN FOR INPATIENT GLYCEMIC CONTROL: No changes needed to current regimen. * Continue basal insulin with Lantus 8-10 units SQ daily * Continue NovoLog per scale ACHS/Q6hrs while NPO * Goal range = 110 140 mg/dl * CF = 30 mg/dl/unit * CR = 1 unit for ever 10 g CHO consumed * Pharmacy is signing off of glycemic consult and will no longer be making adjustments to inpatient regimen. Please feel free to re-consult if needed. Thank you. DISCHARGE RECOMMENDATIONS: * A1c 11.9%, likely due to non-compliance with insulin regimen. Would recommend an empiric dose reduction on discharge given insulin requirements this hospitalization of 30-40 units PER DAY. Might consider 20 units 70/30 w/ breakfast and 10 units w/ dinner. [facility]. Would recommend f/u within a week of discharge to assist with titration of doses.
[2021-05-13] MEDS ORDERED: INSULIN GLARGINE SOLOSTAR 100 UNITS/ML 3 ML PEN SC SCH (09:00)
[2021-05-13] MEDS: INSULIN ASPART 100 UNITS/ML 3 ML PEN SC SCH ×2 (09:12→12:23)
[2021-05-13] MEDS: CYANOCOBALAMIN 500 MCG TABLET (VITAMIN B-12) PO SCH (09:34)
[2021-05-13] MEDS: ASPIRIN 81 MG ECTAB PO SCH (09:34)
[2021-05-13] MEDS: APIXABAN 5 MG TABLET PO SCH (09:34)
[2021-05-13] MEDS: LOSARTAN POTASSIUM 50 MG TAB PO SCH (09:34)
[2021-05-13] MEDS: METOPROLOL SUCC 25MG EXT REL TAB PO SCH (09:34)
[2021-05-13] MEDS: FUROSEMIDE 60 MG in SYRINGE 0 ML IV SCH (09:34)
[2021-05-13] MEDS: ATORVASTATIN 40 MG TAB PO SCH (09:34)
[2021-05-13] MEDS: SPIRONOLACTONE 12.5 MG TAB PO SCH (09:35)
[2021-05-13] MEDS: UMECLIDINIUM/VILANTEROL 62.5/25MCG 7 PUFFS/INHALER INH SCH (09:35)
--- NOTE | 2021-05-13 14:53 | Hospitalist Progress Note ---
Date of Service May 13, 2021 Assessment & Plan (1) Acute respiratory failure with hypoxia and hypercapnia: Plan: This is a 76yo M with a PMH of HTN, DM II, COPD, PAD, ongoing tobacco use x 60 years, peripheral neuropathy, Multiple Myeloma on immunotherapy, medication non- compliance who presents with progressive SOB over the past few months. Multifactorial mostly related to PE versus CHF versus pneumonia Hypoxic at 86% on room air, improved to 93% with bipap trial, now 92% on 6L oxymask CTA chest showed right lower lobe pulmonary embolus. There are small pleural effusions. The right pleural effusion is partially loculated.There is dense consolidation at both lung bases, left greater than right. Mild patchy opacities are seen throughout the left upper lung. ABG showed pH 7.29, PCO2 55 and PO2 77 Was placed on BiPAP but patient was able to tolerated Afebrile with normal wbc and procal Currently on Unasyn IV Pulmonary on board discontinued IV antibiotic, will do Augmentin BID for 2 days to complete the course Case discussed with cardiology recommended to increase Lasix to 60 mg IV twice daily Continue oxygen supplement Consider two-step on discharge PT/OT Continue monitor closely Pt will sign AMA (2) Pulmonary embolism: Plan: Right lower lobe PE on Chest CTA Currently on IV heparin drip Echo shows severe global hypokinesis with ejection fraction 15 to 20% Case discussed with his oncology who is his primary oncologist and as well as Dr. Montoya about anticoagulated on discharge. Both recommended to to transition to DOAC such as Eliquis Might need 6 months of oral anticoagulant anticoagulation, but due to history of multiple myeloma oncology might consider a long-term anticoagulant (3) Acute on chronic systolic CHF (congestive heart failure): (4) Volume overload: Plan: Possible Takotsubo cardiomyopathy due to increased stressors specifically over the last 2 months. No formal CHF diagnosis in [facility] records requested but clinically appears to have decompensated CHF Prescribed 80mg PO Lasix daily for BLE swelling, per [facility] records TTE performed while patient in ED showed severe global hypokinesis with ejection fraction 15 to 20% Pro-BNP 24,198, edema noted in BLE extremities up to groin, upper extremity as well Cardiology on board Case discussed with cardiology that recommend to increase Lasix to 60 mg IV twice daily Monitor BMP closely while on IV Lasix Continue IV diuresis BID, but pt refused to stay and signed AMA Continue monitor I/O (5) Elevated troponin: Plan: Mostly due to demand ischemia due to acute respiratory failure in the setting of PE EKG showed no ischemic changes Cardiology on board Already anticoagulated with IV heparin for PE, then transition to Eliquis Echo showed severe global hypokinesis with ejection fraction 15 to 20% Continue aspirin, statin and metoprolol Plavix will be discontinued on discharge Currently denies any chest pain (6) Multiple myeloma: Plan: Receives cancer care at [facility] [place] for IgG kappa multiple myeloma. Regimen includes monthly daratumumab (7) PAD (peripheral artery disease): Plan: Plavix discontinued Case discussed with cardiology recommend continue aspirin and Eliquis on discharge (8) HTN (hypertension): Plan: Amlodipine discontinued Continue Spironolactone 12.5 mg and Losartan 100mg Continue losartan 100 mg daily (9) DM type 2, uncontrolled, with neuropathy: Plan: Most recent hemoglobin A1c is 11.9 on 05/08/2021 Pharmacy on board for glycemic management coding educator on board on insulin as per pharmacy management Continue monitor blood sugar closely DVT Ppx:On Eliquis Code status: FULL PCP: [facility] Dispo: Pt left AMA Admission and Anticipated Discharge Date Admission Date: May 07, 2021 Subjective Pt was seen and examined for follow up of SOB Sitting in the chair with no acute respiratory distress Pt said that she wants to leave AM I explained to him that he is not ready yet to b discharge because he continues to require oxygen I advised him to stay in the hospital to continue getting IV diuresis He said that he needs to leave to get his car at the [facility] to drive himself to [facility] He said that he will feel much comfortable if he is getting his car in [place] I offered him that I will call [facility] to transfer him that he can continue getting his care and once stable they can discharge him He refused the option to go to [place] He said that he needs to leave to go smoking He said that he will call for a cab to drive him to the [facility] to get his car I explained to him that he is putting himself and others in danger by driving his car while medically unstable He said that is his life and willing to take the risk I notified cardiology about pt wants to leave [facility] Dr. Hilton came to talk to him also about to stay to continue diuresing him, he refused He understood the risks by leaving AMA such as worsening SOB, CHF exacerbation and possible I advised him if he gets worst, to call 911 that they can take him to the closest hospital because if not he would diet I sent prescription to the pharmacy for him Physical Exam Physical Exam: General- No acute distress Head- atraumatic Eyes- PERRL, EOMI, ENT- oropharynx clear Neck- supple, no JVD Lungs- +diminished BS Heart- regular rhythm; no murmur Abdomen- normal bowel sounds, soft, nontender Extremities- no calf tenderness, +edema Neuro- alert, oriented x 3; PERRL, EOMI; no facial palsy; no dysarthria Skin- warm & dry Results & Data Results & Data ([facility]) Vital Signs (Past 12 Hours) Vital Signs Temp Pulse Pulse Resp BP Pulse Ox Pulse Ox 05/13/21 13:00 95 05/13/21 07:15 36.8 C 71 22 126/66 92 05/13/21 07:14 73 05/13/21 03:49 36.8 C 74 24 114/77 96 Pulse Ox Pulse Ox 05/13/21 13:00 91 89 L 05/13/21 07:15 05/13/21 07:14 05/13/21 03:49 (1) Pulmonary embolism Acute cor pulmonale presence: unspecified Chronicity: unspecified Pulmonary embolism type: unspecified Qualified Code(s): I26.99 - Other pulmonary embolism without acute cor pulmonale (2) Multiple myeloma Multiple myeloma remission status: unspecified Qualified Code(s): C90.00 - Multiple myeloma not having achieved remission
--- NOTE | 2021-05-14 10:21 | Discharge Summary ---
Date of Service May 13, 2021 Admission HPI Per Admitting Provider This is a 76yo M with a PMH of HTN, DM II, COPD, PAD, ongoing tobacco use x 60 years, peripheral neuropathy, Multiple Myeloma on immunotherapy who presents with progressive SOB over the past few months. Had an appointment at the [facility] with PCP earlier today and was noted to have SOB and lower extremity swelling and was sent to ED for further evaluation. [facility] to [facility] today but [facility] them. Endorses productive yellow sputum, chills, swelling in arms, legs and scrotum. Sleeps lying flat at night but is short of breath, waking up frequently. No fevers, headache, nausea, vomiting, abdominal pain, dysuria, constipation. Endorses urinary hesitancy, incomplete voiding and retention. Stool is watery and loose chronically. Receives cancer care at [facility] in [place] for IgG kappa multiple myeloma. Regimen includes monthly daratumumab. Is non-compliant with home medications, including antihypertensives, lasix, diabetes medications, aspirin and plavix. Uses albuterol inhaler occasionally. [facility] med [facility] Admission Exam Per Admitting Provider Physical exam notable for elderly man, on BiPAP, bilateral lower extremities and upper extremity edema, diminished breath sounds lung bases with crackles Principal Diagnosis Acute respiratory failure with hypoxia and hypercapnia: Pulmonary embolism: Acute on chronic systolic CHF (congestive heart failure): Discharge Exam General- No acute distress Head- atraumatic Eyes- PERRL, EOMI, ENT- oropharynx clear Neck- supple, no JVD Lungs- +diminished BS Heart- regular rhythm; no murmur Abdomen- normal bowel sounds, soft, nontender Extremities- no calf tenderness, +edema Neuro- alert, oriented x 3; PERRL, EOMI; no facial palsy; no dysarthria Skin- warm & dry Discharge Data Allergies Allergy/AdvReac Type Severity Reaction Status Date / Time gabapentin Allergy Rash Unverified 05/07/21 11:50 metformin Allergy Diarrhea Unverified 05/07/21 11:50 Consultations 05/07/21 15:19 Consult Pulmonology Routine 05/07/21 15:55 Consult Health Information Management ONCE 05/07/21 16:03 Consult Cardiology Routine Ordered Studies 05/07/21 13:01 CT angio chest PE protocol Stat Diabetes Follow up Diabetes Follow-up Needed for HgbA1c >9% Hospital Course (1) Acute respiratory failure with hypoxia and hypercapnia: This is a 76yo M with a PMH of HTN, DM II, COPD, PAD, ongoing tobacco use x 60 years, peripheral neuropathy, Multiple Myeloma on immunotherapy, medication non- compliance who presents with progressive SOB over the past few months. Multifactorial mostly related to PE versus CHF versus pneumonia Hypoxic at 86% on room air, improved to 93% with bipap trial, now 92% on 6L oxymask CTA chest showed right lower lobe pulmonary embolus. There are small pleural effusions. The right pleural effusion is partially loculated.There is dense consolidation at both lung bases, left greater than right. Mild patchy opacities are seen throughout the left upper lung. ABG showed pH 7.29, PCO2 55 and PO2 77 Was placed on BiPAP but patient was able to tolerated Afebrile with normal wbc and procal Currently on Unasyn IV Pulmonary on board discontinued IV antibiotic, will do Augmentin BID for 2 days to complete the course Case discussed with cardiology recommended to increase Lasix to 60 mg IV twice daily Continue oxygen supplement Consider two-step on discharge PT/OT Continue monitor closely Pt signed AMA (2) Pulmonary embolism: Right lower lobe PE on Chest CTA Currently on IV heparin drip Echo shows severe global hypokinesis with ejection fraction 15 to 20% Case discussed with his oncology who is his primary oncologist and as well as Dr. Montoya about anticoagulated on discharge. Both recommended to to transition to DOAC such as Eliquis Might need 6 months of oral anticoagulant anticoagulation, but due to history of multiple myeloma oncology might consider a long-term anticoagulant (3) Acute on chronic systolic CHF (congestive heart failure): (4) Volume overload: Possible Takotsubo cardiomyopathy due to increased stressors specifically over the last 2 months. No formal CHF diagnosis in [facility] records requested but clinically appears to have decompensated CHF Prescribed 80mg PO Lasix daily for BLE swelling, per [facility] records TTE performed while patient in ED showed severe global hypokinesis with ejection fraction 15 to 20% Pro-BNP 24,198, edema noted in BLE extremities up to groin, upper extremity as well Cardiology on board Case discussed with cardiology that recommend to increase Lasix to 60 mg IV twice daily Monitor BMP closely while on IV Lasix Continue IV diuresis BID, but pt refused to stay and signed AMA Continue monitor I/O (5) Elevated troponin: Mostly due to demand ischemia due to acute respiratory failure in the setting of PE EKG showed no ischemic changes Cardiology on board Already anticoagulated with IV heparin for PE, then transition to Eliquis Echo showed severe global hypokinesis with ejection fraction 15 to 20% Continue aspirin, statin and metoprolol Plavix will be discontinued on discharge Currently denies any chest pain (6) Multiple myeloma: Receives cancer care at [facility] in [place] for IgG kappa multiple myeloma. Regimen includes monthly daratumumab (7) PAD (peripheral artery disease): Plavix discontinued Case discussed with cardiology recommend continue aspirin and Eliquis on discharge (8) HTN (hypertension): Amlodipine discontinued Continue Spironolactone 12.5 mg and Losartan 100mg Continue losartan 100 mg daily (9) DM type 2, uncontrolled, with neuropathy: Most recent hemoglobin A1c is 11.9 on 05/08/2021 Pharmacy on board for glycemic management cosmetology educator on board on insulin as per pharmacy management Continue monitor blood sugar closely DVT Ppx:On Eliquis Code status: FULL PCP: [facility] Dispo: Pt left AMA Total Time Total Time Spent Total Time Spent (In Minutes): 35 minutes Discharge Plan Discharge Items Patient Disposition: Against Medical Advice Reason For Visit: ACUTE RESP FAILURE Activity: Resume your previous activity Non-emergency contact: Primary Care Provider, [employer] and Oncologist Follow-up/Referrals: PCP,NO [Primary Care Provider] - Fluids: 1500ml (6 cups) Pending Studies at Discharge: No Stand-Alone Forms: [employer], Smoking Cessation Medications and DC Order Prescriptions: New Eliquis 5 mg Tablet 5 mg PO UD 30 Days Qty: 70 RF: 0 Anoro Ellipta 62.5-25 mcg/actuation Blister With Device 1 puff inhalation DAILY 30 Days Qty: 1 RF: 0 spironolactone 25 mg Tablet 12.5 mg PO DAILY 30 Days Qty: 15 RF: 0 metoprolol succinate 25 mg Tablet Extended Release 24 Hr 25 mg PO QAM 30 Days Qty: 30 RF: 0 furosemide [Lasix] 40 mg tablet 60 mg PO BID 30 Days Qty: 90 RF: 0 Continued atorvastatin 80 mg Tablet 80 mg PO DAILY RF: 0 cyanocobalamin (vitamin B-12) 1,000 mcg Tablet 1,000 mcg PO DAILY RF: 0 capsaicin 0.075 % Cream 1 applic TOPICAL TID PRN (Reason: Pain) RF: 0 tamsulosin 0.4 mg Capsule 0.4 mg PO HS RF: 0 montelukast 10 mg Tablet 10 mg PO DAILY RF: 0 albuterol sulfate 90 mcg/actuation HFA aerosol inhaler 2 inh INHALATION QID PRN (Reason: Shortness Of Breath Or Wheezing) RF: 0 losartan 100 mg Tablet 100 mg PO DAILY RF: 0 omega-3 fatty acids Capsule 500 mg PO DAILY RF: 0 aspirin 81 mg Capsule 81 mg PO DAILY RF: 0 insulin asp prt-insulin aspart [Novolog Mix 70-30FlexPen U-100] 100 unit/mL (70-30) Insulin Pen 42 unit SUBCUT BIDM RF: 0 Discontinued clopidogrel [Plavix] 75 mg Tablet 75 mg PO DAILY RF: 0 furosemide [Lasix] 80 mg Tablet 80 mg PO DAILY RF: 0 amlodipine 10 mg Tablet 10 mg PO DAILY RF: 0 hydrochlorothiazide 25 mg Tablet 25 mg PO DAILY RF: 0 tiotropium bromide 2.5 mcg/actuation Mist 2 puff INHALATION DAILY RF: 0 potassium chloride 20 mEq Tablet Extended Release 20 meq PO DAILY RF: 0 Discharge Orders: Left Against Medical Advice (Routine); Ordered 05/13/21 Ordered By: Kayla Moreno Admission Data Admit Date/Time: 05/07/21 15:04 Attending Provider: Kayla Moreno Admit Provider: Veronika Trimble I. Primary Care Provider: PCP,NO Other Providers: Luis Angel Glez ; Agapito Almaraz ; Carlos Hilton Other Interventions: Discharge Summary Assessment (RN) Last Done: 05/13/21 15:33
[2021-05-14 11:16] LABS: Free Kappa 126.6 mg/L (3.3-19.4); Free Kappa/Lambda Ratio 6.66 (0.26-1.65)
--- NOTE | 2021-05-22 08:41 | Coding Query ---
CODING QUERY FOR UNCONTROLLED DIABETES To promote full compliance with coding requirements relating to patient care, provider participation is requested in all cases of direct entry midwife uncertainty. Please assist us with the question(s) below: Coding Question: The term uncontrolled Diabetes was used throughout the record. To be able to code this diagnosis properly, could you please clarify the diagnosis below: ( ) Uncontrolled Diabetes meaning hypoglycemia ( x ) Uncontrolled Diabetes meaning hyperglycemia ( ) Other (please specify) Thanks, Fabrice Flor [facility] Principal Diagnosis: "that condition established after study, to be chiefly responsible for occasioning the admission of the patient to the hospital for care." Co-Existing Principal Diagnosis: "when two or more diagnoses equally meet the criteria for principal diagnosis as determined by the circumstances of admission, diagnostic work up, and/or therapy provided, and the Alphabetic Index, Tabular List, or another coding guideline does not provide sequencing direction, any one of the diagnoses may be sequenced first." "When the physician has documented what appears to be a current diagnosis in the body of the record, but has not included the diagnosis in the final diagnostic statement, the physician should be asked whether the diagnosis should be added." (Source Coding [facility] 2 QTR90. p3-4) AMADOU
== END 2021-05-13 17:35 | disposition left against medical advice (07) | DRG 175 ==
LOC: ED 11:01 → SUATTDRO 15:04 → 2E 15:04